=== PATIENT | female | born 1935 | race Caucasian/White ===

== ENCOUNTER 2019-05-28 19:09 | Inpatient (IN) | payer OTHER, BC ==
--- NOTE | 2019-05-28 19:18 | PDOC ---
History of Present Illness - General Chief Complaint: Shortness of Breath Stated Complaint: RESPIRATORY DISTRESS Time Seen by Provider: 05/28/19 19:17 History Source: Patient, Family - History of Present Illness Initial Comments: 05/28/19 20:16 Ms. Terrazas is an 84 y/o woman with hx diastolic CHF, recent bronchitis, mild alzheimers, CKD3, HTN, extensive vascular history including L carotid endarterectomy, drug eluting cardiac stent s/p [place] several years ago p/w 1-2 days of worsening shortness of breath. She reports that she noted the difficulty breathing two days ago and that today it worsened to the point that she asked her daughter to call an ambulance. She denies any chest pain, fevers, night sweats, diaphoresis, nausea, vomiting, palpitations. She has no history of prior DVT or PE and has no known sick contacts. 1.5 weeks ago she was treated for a CHF flare that was followed by bronchitis treated with a z-pack. She is accompanied by her daughter who is very involved in her mother's medical care. Her daughter reports that she does not normally take Lasix, but has been taking 4mg Lasix daily since the recent CHF flare. Her daughter administered 80 mg of Furosemide 1.5 hours prior to arriving at the hospital. Her daughter was in touch with the patient's para operator Dr. Figueredo, who expressed that if the security chief museum found pulmonary fluid on exam that she "should be admitted to the hospital ". Ms. Terrazas lives at [address] [place] [address] in independent housing and manages her own medications. Her daughter reports concern that she is not taking her medications regularly, and reports that she self-discontinued her donepizil recently because she felt that she did not need it. She reports that her weight is normally 112-114lbs but noticed that her weight has recently increased to approx 118lbs, and reports that her ankles seem swollen. She has no known drug allergies. She has never been on dialysis. She reports extensive smoking history but reports quitting 10+ years ago. Timing/Duration: other (1-2 days) Severity: severe Associated Symptoms: reports: shortness of breath. denies: chest pain, cough, fever/chills, nausea/vomiting, syncope, weakness Past History - Past Medical History Allergies/Adverse Reactions: Allergies Allergy/AdvReac Type Severity Reaction Status Date / Time erythromycin base Allergy Unknown Verified 05/28/19 20:18 Penicillins Allergy Unknown Verified 05/28/19 20:18 Anemia: No Cancer: No Cardiac Disorders: Yes Hx Myocardial Infarction: Yes CVA: No CHF: Yes (Diastolic CHF) DVT: No Dementia: Yes Dialysis: No HTN: Yes - Surgical History Cardiac Surgery: Yes (Drug eluting stent placement s/p [place]) Other Surgical History: 05/28/19 20:29 Vascular - L Carotid endarterectomy, Bilateral femoral stenting Review of Systems - Review of Systems Able to Perform ROS?: Yes Constitutional: Yes: See HPI. No: Chills, Diaphoresis, Fever, Night Sweats, Weakness, Weight Stable (112lb baseline ->118lb last week), Unintentional Wgt. Loss HEENTM: Yes: See HPI. No: Eye Pain, Blurred Vision, Recent change in vision Respiratory: Yes: See HPI Cardiac (ROS): Yes: See HPI ABD/GI: Yes: See HPI Musculoskeletal: Yes: See HPI Integumentary: Yes: See HPI Neurological: Yes: See HPI *Physical Exam - Physical Exam General Appearance: Yes: Nourished, Appropriately Dressed, Apparent Distress, Moderate Distress HEENT: positive: EOMI, FRANCOISE, Hearing Decreased. negative: Pale Conjunctivae Neck: positive: Trachea midline. negative: Carotid bruit Respiratory/Chest: positive: Respiratory Distress (Improved on BiPAP), Accessory Muscle Use (Resolved on BiPAP), Rapid RR, Wheezing (Mild). negative: Chest Tender, Crackles, Stridor Cardiovascular: positive: Regular Rhythm, Regular Rate, S1, S2. negative: JVD, Murmur, Systolic Murmur Gastrointestinal/Abdominal: positive: Normal Bowel Sounds, Flat, Soft. negative : Tender Extremity: positive: Pedal Edema (1+ bilateral) Integumentary: positive: Dry, Warm, Pale (Mild). negative: Cyanotic, Jaundice, Diaphoresis, Hives, Petechiae, Ecchymosis ED Treatment Course - LABORATORY CBC & Chemistry Diagram: 05/28/19 19:52 05/28/19 19:52 Medical Decision Making - Critical Care Time Total Critical Care Time (minutes): 35 Critical Care Statement: The care of this patient involved high complexity decision making to prevent further life threatening deterioration of the patient 's condition and/or to evaluate & treat vital organ system(s) failure or risk of failure. - Medical Decision Making 05/28/19 20:25 84 y/o F with extensive cardiovascular hx including diastolic CHF, HTN, previous vascular surgery and prior OK p/w 2 days of worsening SOB shortly after treatment for CHF flare, most consistent with acute CHF. COPD flare also possible given degree of shortness of breath and relatively benign pulmonary exam. Given accessory muscle use and difficulty breathing patient was initiated on BiPAP upon arrival to the ED (IPAP 10, EPAP5, O2 40, Resps 14). Plan: Continue BiPAP Chest Xray to evaluate for fluid, possible consolidations which may indicate pneumonia EKG Troponin CBC CMP Mag BNP Consult cardiology Dispo: Pending labs, imaging but likely admission to hospital 05/28/19 21:10 Labs resulted: Troponin - negative Creatinine - 2.8 (most recent 2.0, prior 2.73 in 2017) BNP - >12,000 Fluid bolus 250 mL ordered CXR, EKG Pending Pending admission 05/28/19 21:[address] Lujan, partner of Dr. Figueredo (cardiology). Plan for admission to non-telemetry medicine bed, Dr. Sutton per admitting. 40 mg Lasix ordered *DC/Admit/Observation/Transfer Diagnosis at time of Disposition: CHF exacerbation Qualifiers: Heart failure type: diastolic Qualified Code(s): I50.33 - Acute on chronic diastolic (congestive) heart failure - Discharge Dispostion Condition at time of disposition: Stable Decision to Admit order: Yes - Referrals - Patient Instructions - Post Discharge Activity
[2019-05-28] MEDS ORDERED: ALBUTEROL SO4 2.5/IPRATROPIUM 0.5 INH SOL 3 ML VIAL.NEB. NEB ONE (19:52)
[2019-05-28] MEDS ORDERED: methylPREDNISolone NA SUCC 125 MG/2 ML VIAL IVPUSH ONE (19:52)
[2019-05-28 20:17] LABS: BASO % 0.2 % (0-2.0); EOS % 0.1 % (0-4.5); HEMOGLOBIN 9.6 GM/dL (10.7-15.3); LYMPH % 5.2 % (8-40); MCH 29.8 pg (25.7-33.7); MCHC 32.9 g/dl (32.0-36.0); MEAN CELL VOLUME 90.5 fl (80-96); MEAN PLT VOLUME 10.7 fl (7.5-11.1); MONO % 5.4 % (3.8-10.2); NEUT % 89.1 % (42.8-82.8); PLATELET COUNT 193 K/MM3 (134-434); RBC 3.21 M/mm3 (3.60-5.2); RDW 13.6 % (11.6-15.6); WHITE BLOOD COUNT 12.9 K/mm3 (4.0-10.0)
[2019-05-28 20:45] LABS: ALBUMIN 3.5 g/dl (3.4-5.0); BILIRUBIN,TOTAL 0.5 mg/dL (0.2-1); BLOOD UREA NITROGEN 62.4 mg/dL (7-18); CALCIUM 8.6 mg/dL (8.5-10.1); CREATININE 2.8 mg/dL (0.55-1.3); MAGNESIUM 2.4 mg/dL (1.8-2.4); N-TERMINAL BNP 12696.3 pg/ml (5-450); POTASSIUM 4.8 mmol/L (3.5-5.1); TOT PROT 7.1 g/dl (6.4-8.2)
--- NOTE | 2019-05-28 20:58 | PDOC ---
Documentation entered by Sheree Morrison SCRIBE, acting as scribe for Tete Schaefer MD. Tete Schaefer MD: This documentation has been prepared by the sylvesteribe, Sheree Morrison SCRIBE, under my direction and personally reviewed by me in its entirety. I confirm that the documentation accurately reflects all work, treatment, procedures, and medical decision making performed by me. Attending Attestation - Resident Resident Name: HectorFranco - ED Attending Attestation I have performed the following: I have examined & evaluated the patient, The case was reviewed & discussed with the resident, I agree w/resident's findings & plan, Exceptions are as noted - HPI HPI: 05/28/19 19:42 The patient is an 84-year-old female from [facility] , with a past medical history diastolic heart failure, stage 3 renal failure ( not on hemodialysis), MD (stent x1), who presents to the ED with 1-2 days of worsening shortness of breath after a flare up of pulmonary edema 1.5 weeks ago. The patient was recently diagnosed with bronchitis and was given a Z-Shorty and Mucinex. Daughter is at bedside and reports that they were alternating 40- 80 mg of Lasix during this time and then switched to 40 mg daily. Patient called her daughter today and reported that the shortness of breath was worsening. She spoke to Dr. Concepcion who advised the patient to come to the ED for further evaluation. Patient states that she has been compliant with all her medications, but her daughter is not sure if that is true. The patient denies any fevers, chills, nausea, vomiting, diarrhea, or abdominal pain. Denies any chest pain or palpitations. Denies any urinary symptoms. Denies any weakness, dizziness, lightheadedness, or strength or sensory changes. General Manager In Training: Dr. Concepcion PCP: Dr. Thurman - Physicial Exam PE: 05/28/19 19:56 GENERAL: Awake, alert, and fully oriented, in no acute distress HEAD: No signs of trauma EYES: PERRLA, EOMI, sclera anicteric, conjunctiva clear ENT: Auricles normal inspection, hearing grossly normal, nares patent, oropharynx clear without exudates. Moist mucosa NECK: Normal ROM, supple, no lymphadenopathy, JVD, or masses LUNGS: Breath sounds equal, clear to auscultation bilaterally. No wheezes, and no crackles HEART: Regular rate and rhythm, normal S1 and S2, no murmurs, rubs or gallops ABDOMEN: Soft, nontender, normoactive bowel sounds. No guarding, no rebound. No masses EXTREMITIES: Normal range of motion, no edema. No clubbing or cyanosis. No cords, erythema, or tenderness NEUROLOGICAL: Cranial nerves II through XII grossly intact. Normal speech. SKIN: Warm, Dry, normal turgor, no rashes or lesions noted - Medical Decision Making 05/28/19 21:28 Dr. Larson was paged and notified via phone service. 05/29/19 20:26 Pt will be admitted to med surg for her SOB and her CHF exacerbation.
[2019-05-28] MEDS ORDERED: SODIUM CHLORIDE 0.9% 500 ML INFUS.BAG IV ONE (21:00)
[2019-05-28] MEDS ORDERED: FUROSEMIDE 40 MG/4 ML INJECTABLE VIAL IVPUSH ONE (21:32)
[2019-05-28] MEDS ORDERED: FUROSEMIDE 40 MG/4 ML INJECTABLE VIAL ONE (21:54)
--- NOTE | 2019-05-28 23:55 | PN ---
Teaching Attending Note Name of Resident: Petrona Spencer ATTENDING PHYSICIAN STATEMENT I saw and evaluated the patient. I reviewed the resident's note and discussed the case with the resident. I agree with the resident's findings and plan as documented. [facility] presents for [facility] with admission requested for stated SOB likely 2 /2 CHF exacerbation. Her EF is unknown. She was placed on Bipap in the ER, no ABG obtained prior and ABG now actually shows respiratory alkalosis with acute metabolic compensation. No documented hypoxia in vital signs or chart and I never saw her desat when off bipap. Noted to have hypertensive urgency to 180s SBP. I am told ER spoke with [facility] who requested the patient on med surg. Questionable medication noncompliance and recent treatment for bronchitis. Daughter has now left and cannot confirm recent O2 requirements (if she had any available O2 at [facility]). VS reviewed; per chart NAD, AAO, resting in bed On bipap; NC AT EOMI PERRLA RRR s1/2 Lungs with scattered crackles, w/ sym exp NT ND +BS CN2-12 wnl, no fnd Very anxious, grabbing at bed and hyperventillating, begging me and RT staff not to leave the room. EKG obtained on floor; reviewed CXR reviewed; fluid overload noted potentially obscuring any infiltrates with final read pending ASSESSMENT AND PLAN: Patient presents with acute respiratory failure requiring BiPap secondary to CHF exacerbation; noted to have elevated Cr with baseline CKD but unknown b/l Cr. She has questionable noncompliance with home therapy and is a patient of Dr. Concepcion. # Acute Respiratory failure 2/2 CHF exacerbation (EF and etiology unknown) with potential COPD contribution # Hypertensive Urgency # CKD-III with unknown baseline Cr, r/o MARCELL # CAD s/p PCI # Acute cystitis # Leukocytosis # Normocytic Anemia # Anxiety/Sundowning with hsitory of Alzheimer's dementia # Relatively prolonged QTc (490) -Admit to medicine; ER called [facility] followup their recs. Followup ABG and wean from BiPap to NC as tolerated. I don't have an initial ABG, and given that the one obtained on Bipap shows an acute respiratory alkalosis with appropriate acute compensation it appeared she was being hyperventillated. When bipap was removed sats >94% consistently while talking and extreme anxiety that could easily have mimicked respiratory failure. Therefore repeating ABG off bipap to see if she is actually hypercarbic (has been on 2L NC for ~2 hours without any desaturation but noted extreme anxiety). If ABG is normal will treat anxiety/ sundowning with agents that would not prolong QTc. She is noted to have a +UA and admits to being confused; I think that the possible UTI likely contributed to her worsening anxiety. On ceftriaxone, followup cxs. -BNP elevated with aformentioned CXR; could have element of renal retention but daughter states history D-CHF. Strict Is and Os, QD weights, optimize Mg and K. RF is likely 2/2 CHF exacerbation; will discuss old records with [facility] and obtain echo (Can cancel if recent study as OP). Apparently used to alternate lasix dose 40 and 80 and is now 40; was given 40 in ER with inaccurate Is and Os and still documented as tachypnic. Given baseline renal failure will likely need higher dose so giving additional 20 and placing on 60 IV daily and will monitor renal function and output, involving nephro if needed. Etiology of the CHF exacerbation would be likely 2/2 suspected noncomplaince vs. recent infection pushing her into it. -Potential contribution from COPD (some wheezes hear but mostly upper airway). She is a former smoker with no known PFTs. Will cover with PO prednisone and ATC nebs. Trigger would be the recent infection. Not necessarily + by GOLD criteria; she denies cough or sputum and I don't actually have any documented hypoxia. -For HTN urgency, we will recheck manual and confirm home medication administration. If still >160 can do PRN hydralazine. I definitely think anxiety plays a role in her BP fluctuation. Consider starting SSRI for intermediate nonurgently. -Check iron studies, retic, b12/folate -Recent infection can contribute to leukocytosis; no amrik infiltrates on CXR and no fevers making this less likely a infectious process. It may also be reactive. Can trend and check a blood culture, but will hold off on abx and monitor clinically for now.
[2019-05-29] MEDS ORDERED: FUROSEMIDE 40 MG/4 ML INJECTABLE VIAL IVPUSH ONE (00:05)
[2019-05-29] MEDS ORDERED: FUROSEMIDE 40 MG/4 ML INJECTABLE VIAL ONE (00:37)
[2019-05-29 00:55] LABS: ARTERIAL BLD GAS O2 SATURATION 99.4 % (95-98); ARTERIAL BLOOD GAS BASE EXCESS -2.7 meq/l (-2-2); ARTERIAL BLOOD GAS PCO2 34.1 mmHg (35-45); ARTERIAL BLOOD GAS PO2 150 mmHg (80-105); ARTERIAL BLOOD GAS pH 7.41 (7.35-7.45)
[2019-05-29 01:14] LABS: URINE APPEARANCE CLOUDY; URINE BILIRUBIN NEGATIVE (NEGATIVE); URINE COLOR YELLOW; URINE GLUCOSE (UA) NEGATIVE (NEGATIVE); URINE KETONE NEGATIVE (NEGATIVE); URINE LEUK ESTERASE 3+ (NEGATIVE); URINE NITRITE NEGATIVE (NEGATIVE); URINE PROTEIN 2+ (NEGATIVE); URINE UROBILINOGEN 0.2 mg/dL (0.2-1.0); URINE WBC 91 /hpf (0-5)
[2019-05-29 01:15] LABS: EPI CELLS 5.4 /HPF (0-5/HPF); HYALINE CASTS 6 /lpf (0-8); URINE BACTERIA 416.7 /hpf (NEGATIVE)
[2019-05-29] MEDS ORDERED: CEFTRIAXONE 2 GM in DEXTROSE 5%-WATER 100 ML IVPB ONE (02:30)
[2019-05-29] MEDS ORDERED: predniSONE 20 MG TABLET (UD) PO ONE (02:31)
[2019-05-29] MEDS ORDERED: ALBUTEROL SO4 2.5/IPRATROPIUM 0.5 INH SOL 3 ML VIAL.NEB. NEB PRN (02:33)
--- NOTE | 2019-05-29 02:33 | HP ---
CHIEF COMPLAINT: Difficulty breathing PCP: Dr. Thurman Bird Keeper: Dr. Concepcion HISTORY OF PRESENT ILLNESS: Symone Terrazas is an 84 year old female from [facility], with a PMH of diastolic heart failure, COPD (home O2 status unknown), stage 3 renal failure (not on hemodialysis), LA (drug eluting stent several years ago), L carotid endarterectomy, alzheimers who presents to the ED with 2 days of worsening SOB. Pt was recently treated for a CHF flare and bronchitis 1.5 weeks ago, treated Z-Shorty and Mucinex. Pt did not previously take Lasix, but has been started on 40mg daily since the CHF flare. Pt spoke to her lens edger , Dr. Concepcion, who advised the patient to come to the ED for further evaluation. Pt's daughter administered 80mg of Lasix 1.5 hours prior to arriving at the ED. Pt reports that she has been compliant with her medications, but her daughter is skeptical of the reliability of this. At this time, pt denies chest pain, diaphoresis, fevers, palpitations. Pt typically weighs around 114 lbs, but states that it has recently increased to approx 118 lbs. Upon arrival to the ED , pt was started on BiPAP (IPAP 10, EPAP5, O2 40, Resps 14). PAST MEDICAL HISTORY: Diastolic HF (NIHA Class IV) Stage 3 RF, not on dialysis LA w/stent Alzheimers PAST SURGICAL HISTORY: L carotid endarterectomy BL femoral stenting Social History: Smoking: quit 10+ years ago (previous 1-2 ppd) Alcohol: denies Drugs: denies Family History: Allergies erythromycin base Allergy (Unknown, Verified 05/28/19 20:18) Penicillins Allergy (Unknown, Verified 05/28/19 20:18) HOME MEDICATIONS: REVIEW OF SYSTEMS CONSTITUTIONAL: generalized weakness, malaise Absent: fever, chills, diaphoresis, loss of appetite, weight change HEENT: Absent: rhinorrhea, nasal congestion, throat pain, throat swelling, difficulty swallowing, mouth swelling, ear pain, eye pain, visual changes CARDIOVASCULAR: Absent: chest pain, syncope, palpitations, irregular heart rate, lightheadedness, peripheral edema RESPIRATORY: shortness of breath, orthopnea Absent: cough, dyspnea with exertion, wheezing, stridor, hemoptysis GASTROINTESTINAL: Absent: abdominal pain, abdominal distension, nausea, vomiting, diarrhea, constipation, melena, hematochezia GENITOURINARY: Absent: dysuria, frequency, urgency, hesitancy, hematuria, flank pain, genital pain MUSCULOSKELETAL: Absent: myalgia, arthralgia, joint swelling, back pain, neck pain SKIN: Absent: rash, itching, pallor HEMATOLOGIC/IMMUNOLOGIC: Absent: easy bleeding, easy bruising, lymphadenopathy, frequent infections ENDOCRINE: Absent: unexplained weight gain, unexplained weight loss, heat intolerance, cold intolerance NEUROLOGIC: Absent: headache, focal weakness or paresthesias, dizziness, unsteady gait, seizure, mental status changes, bladder or bowel incontinence PSYCHIATRIC: anxiety Absent: depression, suicidal or homicidal ideation, hallucinations. PHYSICAL EXAMINATION Vital Signs - 24 hr 05/28/19 05/28/19 05/28/19 19:15 19:29 19:40 Temperature 97.4 F L Pulse Rate 68 Pulse Rate [ Apical] Respiratory 30 H Rate Blood Pressure 180/105 H Blood Pressure [Left Arm] O2 Sat by Pulse 100 100 100 Oximetry (%) 05/28/19 05/28/19 05/29/19 21:59 23:59 00:53 Temperature Pulse Rate 64 Pulse Rate [ 70 Apical] Respiratory 26 H Rate Blood Pressure Blood Pressure 172/67 H [Left Arm] O2 Sat by Pulse 100 98 99 Oximetry (%) 05/29/19 02:12 Temperature Pulse Rate Pulse Rate [ Apical] Respiratory Rate Blood Pressure Blood Pressure [Left Arm] O2 Sat by Pulse 100 Oximetry (%) GENERAL: Awake, alert, and fully oriented. Appears slightly uncomfortable. Breathing on NC. HEAD: Normal with no signs of trauma. EYES: Pupils equal, round and reactive to light, extraocular movements intact, sclera anicteric, conjunctiva clear. No lid lag. EARS, NOSE, THROAT: Ears normal, nares patent, oropharynx clear without exudates. Moist mucous membranes. NECK: Normal range of motion, supple without lymphadenopathy, JVD, or masses. LUNGS: Diffuse crackles (christina at bases). Mild wheezing throughout. Accessory muscle use. HEART: Regular rate and rhythm, normal S1 and S2 without murmur, rub or gallop. ABDOMEN: Soft, nontender, not distended, normoactive bowel sounds, no guarding, no rebound, no masses. No hepatomegaly or splenomegaly. MUSCULOSKELETAL: Normal range of motion at all joints. No bony deformities or tenderness. No CVA tenderness. UPPER EXTREMITIES: 2+ pulses, warm, well-perfused. No cyanosis. No clubbing. LOWER EXTREMITIES: 2+ pulses, warm, well-perfused. No calf tenderness. 1+ edema. NEUROLOGICAL: Cranial nerves II-XII intact. Normal speech. Normal gait. PSYCHIATRIC: Cooperative. Good eye contact. Appropriate mood and affect. SKIN: Warm, dry, normal turgor, no rashes or lesions noted, normal capillary refill. Laboratory Results - last 24 hr 05/28/19 05/28/19 05/28/19 19:52 19:52 19:52 WBC 12.9 H RBC 3.21 L Hgb 9.6 L Hct 29.0 L MCV 90.5 MCH 29.8 MCHC 32.9 RDW 13.6 Plt Count 193 MPV 10.7 Absolute Neuts (auto) 11.5 H Neutrophils % 89.1 H Lymphocytes % 5.2 L Monocytes % 5.4 Eosinophils % 0.1 Basophils % 0.2 Nucleated RBC % 0 Anticoagulation Therapy Puncture Site ABG pH ABG pCO2 at Pt Temp ABG pO2 at Pt Temp ABG HCO3 ABG O2 Sat (Measured) ABG O2 Content ABG Base Excess [place] Test O2 Delivery Device Oxygen Flow Rate Vent Mode Vent Rate Mechanical Rate Pressure Support Vent Sodium 141 Potassium 4.8 Chloride 107 Carbon Dioxide 24 Anion Gap 10 BUN 62.4 H Creatinine 2.8 H Est GFR (CKD-EPI)AfAm 17.01 Est GFR (CKD-EPI)NonAf 14.68 Random Glucose 105 Calcium 8.6 Magnesium 2.4 Total Bilirubin 0.5 AST 25 ALT 23 Alkaline Phosphatase 59 Creatine Kinase 94 Troponin I 0.03 B-Natriuretic Peptide 39027.3 H Total Protein 7.1 Albumin 3.5 Urine Color Urine Appearance Urine pH Ur Specific [place] Urine Protein Urine Glucose (UA) Urine Ketones Urine Blood Urine Nitrite Urine Bilirubin Urine Urobilinogen Ur Leukocyte Esterase Urine WBC (Auto) Urine Casts (Auto) U Epithel Cells (Auto) Urine Bacteria (Auto) 05/29/19 05/29/19 00:31 01:05 WBC RBC Hgb Hct MCV MCH MCHC RDW Plt Count MPV Absolute Neuts (auto) Neutrophils % Lymphocytes % Monocytes % Eosinophils % Basophils % Nucleated RBC % Anticoagulation Therapy No Result Required. Puncture Site Right radial ABG pH 7.41 ABG pCO2 at Pt Temp 34.1 L ABG pO2 at Pt Temp 150 H ABG HCO3 21.0 L ABG O2 Sat (Measured) 99.4 H ABG O2 Content 13.1 L ABG Base Excess -2.7 L [place] Test No Result Required. O2 Delivery Device Bipap Oxygen Flow Rate 40% Vent Mode S/t Vent Rate 14 Mechanical Rate No Result Required. Pressure Support Vent 10/5 Sodium Potassium Chloride Carbon Dioxide Anion Gap BUN Creatinine Est GFR (CKD-EPI)AfAm Est GFR (CKD-EPI)NonAf Random Glucose Calcium Magnesium Total Bilirubin AST ALT Alkaline Phosphatase Creatine Kinase Troponin I B-Natriuretic Peptide Total Protein Albumin Urine Color Yellow Urine Appearance Cloudy Urine pH 5.0 Ur Specific [place] 1.010 Urine Protein 2+ H Urine Glucose (UA) Negative Urine Ketones Negative Urine Blood Negative Urine Nitrite Negative Urine Bilirubin Negative Urine Urobilinogen 0.2 Ur Leukocyte Esterase 3+ H Urine WBC (Auto) 91 Urine Casts (Auto) 6 U Epithel Cells (Auto) 5.4 Urine Bacteria (Auto) 416.7 ASSESSMENT/PLAN: Pt is an 84 year old female from [facility], with a PMH of diastolic heart failure, stage 3 renal failure (not on hemodialysis), LA (drug eluting stent several years ago), L carotid endarterectomy, alzheimers who presents to the ED with 2 days of worsening SOB. #Apparent SOB, likely 2/2 anxiety Pt has no recorded decompensation Unknown home O2 status When transitioned to 2L NC, she maintained sats >94% consistently while talking and extreme anxiety. Anxiety may have mimicked resp failure Repeat ABG off BiPAP to assess if pt is really hypercarbic #CHF exacerbation 60mg IV lasix Monitor electrolytes, daily weights, and I's & O's, optimize Mg and K Possible noncompliance with medication may have triggered exacerbation #COPD Duonebs Q6H and albuterol nebs prn Prednisone PO Monitoring pt off BiPAP. Repeat ABG, if pt is hypoxic, upgrade to venti mask Not necessarily exacerbation by GOLD criteria. No cough, change in sputum, and no documented hypoxia #Hypertensive Urgency Cont home meds (doxazosin 4mg, nebivolol 10mg) and add hydralazine 35mg Frequent monitoring #CKD-III, rule out MARCELL Unknown baseline Cr Likely 2/2 to CHF exacerbation Repeat BMP in am. Pt will likely need increase lasix dose. Consider nephro consult #Leukocytosis Recent infection may have contributed No infiltrates on CXR, no fevers, thus less likely an infectious process. May be reactive Trend and check blood cx #FEN Hold fluids for now Sodium controlled diet #DVT ppx Early ambulation Visit type - Emergency Visit Emergency Visit: Yes ED Registration Date: 05/28/19 Care time: The patient presented to the Emergency Department on the above date and was hospitalized for further evaluation of their emergent condition. - New Patient This patient is new to me today: Yes Date on this admission: 05/29/19 - Critical Care Critical Care patient: No ATTENDING PHYSICIAN STATEMENT I saw and evaluated the patient. I reviewed the resident's note and discussed the case with the resident. I agree with the resident's findings and plan as documented. SUBJECTIVE: OBJECTIVE: ASSESSMENT AND PLAN:
[2019-05-29] MEDS ORDERED: DEXTROSE 5%-WATER 100 ML IVPB ONE (02:42)
[2019-05-29] MEDS ORDERED: ALBUTEROL SO4 0.083% IH SOL 2.5 MG/3 ML VIAL.NEB. NEB PRN (03:34)
[2019-05-29] MEDS: ALBUTEROL SO4 2.5/IPRATROPIUM 0.5 INH SOL 3 ML VIAL.NEB. NEB SCH ×5 (03:50→20:15)
[2019-05-29 04:22] LABS: ARTERIAL BLD GAS O2 SATURATION 98.9 % (95-98); ARTERIAL BLOOD GAS BASE EXCESS -5.2 meq/l (-2-2); ARTERIAL BLOOD GAS PCO2 39.9 mmHg (35-45); ARTERIAL BLOOD GAS PO2 136 mmHg (80-105); ARTERIAL BLOOD GAS pH 7.32 (7.35-7.45)
[2019-05-29] MEDS ORDERED: LORazepam 0.5 MG TABLET PO ONE (04:28)
[2019-05-29 04:39] LABS: URINE RBC 30-40 /hpf (0-4); YEAST NONE SEEN (NEGATIVE)
[2019-05-29] MEDS ORDERED: hydrALAZINE HCL 10 MG TABLET ONE ×3 (06:12→20:36)
[2019-05-29] MEDS: DOXAZOSIN MESYLATE 2 MG TABLET (FP) PO SCH (06:13)
[2019-05-29] MEDS ORDERED: hydrALAZINE HCL 25 MG TABLET (FP) ONE ×3 (06:14→20:36)
[2019-05-29] MEDS: hydrALAZINE HCL 25 MG, hydrALAZINE HCL 10 MG PO SCH ×2 (06:16→21:22)
[2019-05-29] MEDS ORDERED: hydrALAZINE HCL 25 MG TABLET (FP) PO SCH ×2 (07:00→22:00)
[2019-05-29 08:26] LABS: BASO % 0.1 % (0-2.0); HEMATOCRIT 29.4 % (32.4-45.2); HEMOGLOBIN 9.9 GM/dL (10.7-15.3); LYMPH % 2.1 % (8-40); MCH 30.2 pg (25.7-33.7); MCHC 33.8 g/dl (32.0-36.0); MEAN CELL VOLUME 89.3 fl (80-96); MEAN PLT VOLUME 10.8 fl (7.5-11.1); MONO % 0.6 % (3.8-10.2); NEUT % 97.2 % (42.8-82.8); RBC 3.29 M/mm3 (3.60-5.2); RDW 13.6 % (11.6-15.6)
--- NOTE | 2019-05-29 08:38 | EKG ---
Test Reason : Blood Pressure : / mmHG Vent. Rate : 066 BPM Atrial Rate : 066 BPM P-R Int : 162 ms QRS Dur : 080 ms QT Int : 442 ms P-R-T Axes : 058 -44 091 degrees QTc Int : 463 ms NORMAL SINUS RHYTHM POSSIBLE LEFT ATRIAL ENLARGEMENT LEFT AXIS DEVIATION T WAVE ABNORMALITY, CONSIDER LATERAL ISCHEMIA ABNORMAL ECG NO PREVIOUS ECGS AVAILABLE Confirmed by FELIX PATEL, PATTY ([id number]) on 05/29/2019 8:37:52 AM Referred By: Confirmed By:PATTY WASHINGTON MD
[2019-05-29 08:45] LABS: PLATELET COUNT 218 K/MM3 (134-434)
[2019-05-29 08:48] LABS: ALBUMIN 3.5 g/dl (3.4-5.0); BILIRUBIN,TOTAL 0.3 mg/dL (0.2-1); BLOOD UREA NITROGEN 68.2 mg/dL (7-18); CALCIUM 8.4 mg/dL (8.5-10.1); CREATININE 3.1 mg/dL (0.55-1.3); MAGNESIUM 2.3 mg/dL (1.8-2.4); POTASSIUM 3.7 mmol/L (3.5-5.1); TOT PROT 7.2 g/dl (6.4-8.2)
[2019-05-29] MEDS ORDERED: PT OWN MED DRAWER 7, Y5N ONE ×3 (09:46→20:36)
[2019-05-29] MEDS ORDERED: PATIENT'S OWN MEDICATION (NON-FORMULARY) (Calcium Carb, Citrate/Vit D3 [Calcium + D3 Er Ta PO SCH (10:00)
[2019-05-29] MEDS: amLODIPine BESYLATE 10 MG TABLET (FP) PO SCH (10:18)
[2019-05-29] MEDS: FUROSEMIDE 40 MG/4 ML INJECTABLE VIAL IVPUSH SCH (10:18)
[2019-05-29] MEDS: ASPIRIN COATED 81 MG TABLET.EC PO SCH (10:18)
[2019-05-29] MEDS: NEBIVOLOL 10 MG TABLET (FP) PO SCH (10:24)
[2019-05-29 11:39] LABS: ANISOCYTOSIS 0; MACROCYTOSIS 0; OVALOCYTE 1+; PLATELET ESTIMATE NORMAL
--- NOTE | 2019-05-29 11:52 | EKG ---
Test Reason : Blood Pressure : / mmHG Vent. Rate : 081 BPM Atrial Rate : 081 BPM P-R Int : 156 ms QRS Dur : 084 ms QT Int : 426 ms P-R-T Axes : 079 -47 074 degrees QTc Int : 494 ms POOR DATA QUALITY, INTERPRETATION MAY BE ADVERSELY AFFECTED NORMAL SINUS RHYTHM POSSIBLE LEFT ATRIAL ENLARGEMENT LEFT ANTERIOR FASCICULAR BLOCK POSSIBLE ANTERIOR INFARCT , AGE UNDETERMINED T WAVE ABNORMALITY, CONSIDER LATERAL ISCHEMIA ABNORMAL ECG WHEN COMPARED WITH ECG OF 28-MAY-2019 21:16, NO SIGNIFICANT CHANGE WAS FOUND Confirmed by PATTY WASHINGTON MD ([id number]) on 05/29/2019 11:52:06 AM Referred By: Confirmed By:PATTY WASHINGTON MD
[2019-05-29] MEDS ORDERED: methylPREDNISolone NA SUCC 40 MG/1 ML VIAL IVPUSH SCH (12:00)
--- NOTE | 2019-05-29 12:00 | PN ---
Progress Note (short form) - Note Progress Note: Subjective: No fever or chills. SOB , and wheezing. received her meds shortly before I came and was feeling better already. son Dayron at bed side and he agrees that upper and lower ext edema is better compared to last night. reprots anxity component and requests anxiety medication. she was off lasix, but 2 weeks ago she was started on alternating 40 and 80 mg daily. she lost 3 pounds since. Cr BL 1.8-2.1 Objective: Vital Signs: Last Vital Signs Temp Pulse Resp BP Pulse Ox 98.0 F 82 22 H 133/92 100 05/29/19 07:26 05/29/19 07:26 05/29/19 07:26 05/29/19 07:26 05/29/19 02:30 Laboratory Results - last 24 hr 05/28/19 05/28/19 05/28/19 19:52 19:52 19:52 WBC 12.9 H RBC 3.21 L Hgb 9.6 L Hct 29.0 L MCV 90.5 MCH 29.8 MCHC 32.9 RDW 13.6 Plt Count 193 MPV 10.7 Absolute Neuts (auto) 11.5 H Neutrophils % 89.1 H Neutrophils % (Manual) Band Neutrophils % Lymphocytes % 5.2 L Lymphocytes % (Manual) Monocytes % 5.4 Monocytes % (Manual) Eosinophils % 0.1 Eosinophils % (Manual) Basophils % 0.2 Basophils % (Manual) Myelocytes % (Man) Promyelocytes % (Man) Blast Cells % (Manual) Nucleated RBC % 0 Metamyelocytes Hypochromia Platelet Estimate Polychromasia Poikilocytosis Anisocytosis Microcytosis Macrocytosis Ovalocytes Anticoagulation Therapy Puncture Site ABG pH ABG pCO2 at Pt Temp ABG pO2 at Pt Temp ABG HCO3 ABG O2 Sat (Measured) ABG O2 Content ABG Base Excess [place] Test O2 Delivery Device Oxygen Flow Rate Vent Mode Vent Rate Mechanical Rate Pressure Support Vent Sodium 141 Potassium 4.8 Chloride 107 Carbon Dioxide 24 Anion Gap 10 BUN 62.4 H Creatinine 2.8 H Est GFR (CKD-EPI)AfAm 17.01 Est GFR (CKD-EPI)NonAf 14.68 Random Glucose 105 Calcium 8.6 Magnesium 2.4 Ferritin Total Bilirubin 0.5 AST 25 ALT 23 Alkaline Phosphatase 59 Creatine Kinase 94 Troponin I 0.03 B-Natriuretic Peptide 45060.3 H Total Protein 7.1 Albumin 3.5 Vitamin B12 TSH Urine Color Urine Appearance Urine pH Ur Specific [place] Urine Protein Urine Glucose (UA) Urine Ketones Urine Blood Urine Nitrite Urine Bilirubin Urine Urobilinogen Ur Leukocyte Esterase Urine WBC (Auto) Urine RBC (Auto) Urine Casts (Auto) U Epithel Cells (Auto) Urine Bacteria (Auto) Urine Yeast (Auto) 05/29/19 05/29/19 05/29/19 00:31 01:05 04:10 WBC RBC Hgb Hct MCV MCH MCHC RDW Plt Count MPV Absolute Neuts (auto) Neutrophils % Neutrophils % (Manual) Band Neutrophils % Lymphocytes % Lymphocytes % (Manual) Monocytes % Monocytes % (Manual) Eosinophils % Eosinophils % (Manual) Basophils % Basophils % (Manual) Myelocytes % (Man) Promyelocytes % (Man) Blast Cells % (Manual) Nucleated RBC % Metamyelocytes Hypochromia Platelet Estimate Polychromasia Poikilocytosis Anisocytosis Microcytosis Macrocytosis Ovalocytes Anticoagulation Therapy No Result Required. No Result Required. Puncture Site Right radial Right radial ABG pH 7.41 7.32 L ABG pCO2 at Pt Temp 34.1 L 39.9 ABG pO2 at Pt Temp 150 H 136 H ABG HCO3 21.0 L 19.9 L ABG O2 Sat (Measured) 99.4 H 98.9 H ABG O2 Content 13.1 L 10.0 L ABG Base Excess -2.7 L -5.2 L [place] Test No Result Required. No Result Required. O2 Delivery Device Bipap N/c Oxygen Flow Rate 40% 4l Vent Mode S/t No Result Required. Vent Rate 14 No Result Required. Mechanical Rate No Result Required. No Result Required. Pressure Support Vent 10/5 No Result Required. Sodium Potassium Chloride Carbon Dioxide Anion Gap BUN Creatinine Est GFR (CKD-EPI)AfAm Est GFR (CKD-EPI)NonAf Random Glucose Calcium Magnesium Ferritin Total Bilirubin AST ALT Alkaline Phosphatase Creatine Kinase Troponin I B-Natriuretic Peptide Total Protein Albumin Vitamin B12 TSH Urine Color Yellow Urine Appearance Cloudy Urine pH 5.0 Ur Specific [place] 1.010 Urine Protein 2+ H Urine Glucose (UA) Negative Urine Ketones Negative Urine Blood Negative Urine Nitrite Negative Urine Bilirubin Negative Urine Urobilinogen 0.2 Ur Leukocyte Esterase 3+ H Urine WBC (Auto) 91 Urine RBC (Auto) 30-40 Urine Casts (Auto) 6 U Epithel Cells (Auto) 5.4 Urine Bacteria (Auto) 416.7 Urine Yeast (Auto) None seen 05/29/19 05/29/19 05/29/19 06:00 07:21 07:21 WBC 10.0 RBC 3.29 L Hgb 9.9 L Hct 29.4 L MCV 89.3 MCH 30.2 MCHC 33.8 RDW 13.6 Plt Count 218 MPV 10.8 Absolute Neuts (auto) 9.7 H Neutrophils % 97.2 H Neutrophils % (Manual) 99.0 H Band Neutrophils % 0.0 Lymphocytes % 2.1 L D Lymphocytes % (Manual) 1.0 L Monocytes % 0.6 L D Monocytes % (Manual) 0 L Eosinophils % 0.0 D Eosinophils % (Manual) 0.0 Basophils % 0.1 Basophils % (Manual) 0.0 Myelocytes % (Man) 0 Promyelocytes % (Man) 0 Blast Cells % (Manual) 0 Nucleated RBC % 0 Metamyelocytes 0 Hypochromia 0 Platelet Estimate Normal Polychromasia 0 Poikilocytosis 1+ Anisocytosis 0 Microcytosis 0 Macrocytosis 0 Ovalocytes 1+ Anticoagulation Therapy Puncture Site ABG pH ABG pCO2 at Pt Temp ABG pO2 at Pt Temp ABG HCO3 ABG O2 Sat (Measured) ABG O2 Content ABG Base Excess [place] Test O2 Delivery Device Oxygen Flow Rate Vent Mode Vent Rate Mechanical Rate Pressure Support Vent Sodium 140 Potassium 3.7 Chloride 107 Carbon Dioxide 21 Anion Gap 12 BUN 68.2 H Creatinine 3.1 H Est GFR (CKD-EPI)AfAm 15.04 Est GFR (CKD-EPI)NonAf 12.98 Random Glucose 240 H Calcium 8.4 L Magnesium 2.3 Ferritin 119.4 Total Bilirubin 0.3 AST 21 ALT 21 Alkaline Phosphatase 60 Creatine Kinase Troponin I B-Natriuretic Peptide Total Protein 7.2 Albumin 3.5 Vitamin B12 583 TSH 0.39 Urine Color Urine Appearance Urine pH Ur Specific [place] Urine Protein Urine Glucose (UA) Urine Ketones Urine Blood Urine Nitrite Urine Bilirubin Urine Urobilinogen Ur Leukocyte Esterase Urine WBC (Auto) Urine RBC (Auto) Urine Casts (Auto) U Epithel Cells (Auto) Urine Bacteria (Auto) Urine Yeast (Auto) Physical Exam: mild distress, tachypnea. CV: RRR, tachycardic. + JVD Lungs: generalized wheezing. decreased breath sounds at bases Abd: soft, NT, ND , NL BS Ext : no edema on upper or lower extremities. Imaging: cxray and EKG reviewed Assessment/Plan: 84 y/o lady with h/ o CHF, COPD, HTN , CAD, Alzheimer, s/p PCI, who presented with worsening SOB. She was found in acute resp failure. 1- ACute resp failure due to COPD exacerbation with CHF exacerbation. cxray not read but reviewed and shows possible pleural effusions, no infiltrates. fluid congestion improved with lasix and breathing treatment. ABG on and off BIPAP reviewed. - place on BIPAP now and then PRN and HS . decrease rate to 12. - change prednisone to solu-Medrol 40 TID - NEbs - Add symbicort - cont lasix at current does pending card consult - echo . hopefully can find out pt echo - pulmonary consult 2- MARCELL: likely prerenal azotemia due to CHF - renal US. - monitor with diuresis - renal consult 3- HTN urgency: resume all her BP meds. Monitor BP. anxiety and SOB are playing a big role per daughter base line BP 150-160. 4- DVT px: place on SQ heparin Code status : she has a living will which states " DNR/DNI" spoke to laverne Garcia over the phone who expressed she wanted her mom to be full code. Dayron at bedside agrees. Spoke to Bill, HCP, over phone ), and he agrees to full code. Transfer to tele floor Visit type - Emergency Visit Emergency Visit: Yes ED Registration Date: 05/28/19 Care time: The patient presented to the Emergency Department on the above date and was hospitalized for further evaluation of their emergent condition. - New Patient This patient is new to me today: Yes Date on this admission: 05/29/19 - Critical Care Critical Care patient: No
--- NOTE | 2019-05-29 12:59 | CON.CARD ---
Cardiology Consult (text) - Consultation Consultation Note: cc: sob hpi: 84 f hx dementia, ckd, cea, diastolic chf, htn, hld, mi s/p remote pci, here with sob. Pt poor historian 2/2 dementia. Hx from charts, family. Past 1 -2 days with sob so took increased dose of lasix but not improving so ems called yesterday and brought to ER for chf. Pt denies any sxs, confused. Sees dr lima for cardio. pmh: per hpi psh: cea social: no tob fam: non contrib ros: unable to obtain 2/2 dementia meds: Home Medications Medication Instructions Recorded Amlodipine Besylate 10 mg PO DAILY 05/29/19 Aspirin [Ecotrin] 81 mg PO DAILY 05/29/19 Atorvastatin Ca [Lipitor] 40 mg PO HS 05/29/19 Calcium Carb, Citrate/Vit D3 1 tab PO DAILY 05/29/19 [Calcium + D3 ER Tablet] Doxazosin Mesylate 2 mg PO AM 05/29/19 Doxazosin Mesylate 4 mg PO HS 05/29/19 Hydralazine HCl 35 mg PO AM 05/29/19 Hydralazine HCl 35 mg PO HS 05/29/19 Nebivolol HCl [Bystolic] 10 mg PO DAILY 05/29/19 pe: Vital Signs Period Temp Pulse Resp BP Sys/Michelle Pulse Ox Last 24 Hr 97.4 F-98.0 F 64-92 22-30 129-180/60-105 98-100 nad no jvd rrr s1s2 no mrg bibasilar crackles, nl eff abd nt nd pos bs no jaundice diaphoresis pos dp tp no carotid bruits awake, alert, confused no le e/c/c Laboratory Last Values WBC 10.0 K/mm3 (4.0-10.0) 05/29/19 07:21 RBC 3.29 M/mm3 (3.60-5.2) L 05/29/19 07:21 Hgb 9.9 GM/dL (10.7-15.3) L 05/29/19 07:21 Hct 29.4 % (32.4-45.2) L 05/29/19 07:21 MCV 89.3 fl (80-96) 05/29/19 07:21 MCH 30.2 pg (25.7-33.7) 05/29/19 07:21 MCHC 33.8 g/dl (32.0-36.0) 05/29/19 07:21 RDW 13.6 % (11.6-15.6) 05/29/19 07:21 Plt Count 218 K/MM3 (134-434) 05/29/19 07:21 MPV 10.8 fl (7.5-11.1) 05/29/19 07:21 Absolute Neuts (auto) 9.7 K/mm3 (1.5-8.0) H 05/29/19 07:21 Neutrophils % 97.2 % (42.8-82.8) H 05/29/19 07:21 Neutrophils % (Manual) 99.0 % (42.8-82.8) H 05/29/19 07:21 Band Neutrophils % 0.0 % 05/29/19 07:21 Lymphocytes % 2.1 % (8-40) L D 05/29/19 07:21 Lymphocytes % (Manual) 1.0 % (8-40) L 05/29/19 07:21 Monocytes % 0.6 % (3.8-10.2) L D 05/29/19 07:21 Monocytes % (Manual) 0 % (3.8-10.2) L 05/29/19 07:21 Eosinophils % 0.0 % (0-4.5) D 05/29/19 07:21 Eosinophils % (Manual) 0.0 % (0-4.5) 05/29/19 07:21 Basophils % 0.1 % (0-2.0) 05/29/19 07:21 Basophils % (Manual) 0.0 % (0-2.0) 05/29/19 07:21 Myelocytes % (Man) 0 % (0-2) 05/29/19 07:21 Promyelocytes % (Man) 0 % (0-2) 05/29/19 07:21 Blast Cells % (Manual) 0 % (0-0) 05/29/19 07:21 Nucleated RBC % 0 % (0-0) 05/29/19 07:21 Metamyelocytes 0 % (0-2) 05/29/19 07:21 Hypochromia 0 05/29/19 07:21 Platelet Estimate Normal 05/29/19 07:21 Polychromasia 0 05/29/19 07:21 Poikilocytosis 1+ 05/29/19 07:21 Anisocytosis 0 05/29/19 07:21 Microcytosis 0 05/29/19 07:21 Macrocytosis 0 05/29/19 07:21 Ovalocytes 1+ 05/29/19 07:21 Anticoagulation Therapy No Result Required. 05/29/19 04:10 Puncture Site Right radial 05/29/19 04:10 ABG pH 7.32 (7.35-7.45) L 05/29/19 04:10 ABG pCO2 at Pt Temp 39.9 mmHg (35-45) 05/29/19 04:10 ABG pO2 at Pt Temp 136 mmHg (80-105) H 05/29/19 04:10 ABG HCO3 19.9 mmol/L (22-27) L 05/29/19 04:10 ABG O2 Sat (Measured) 98.9 % (95-98) H 05/29/19 04:10 ABG O2 Content 10.0 % vol (15-22) L 05/29/19 04:10 ABG Base Excess -5.2 meq/l (-2-2) L 05/29/19 04:10 [place] Test No Result Required. 05/29/19 04:10 O2 Delivery Device N/c 05/29/19 04:10 Oxygen Flow Rate 4l 05/29/19 04:10 Vent Mode No Result Required. 05/29/19 04:10 Vent Rate No Result Required. 05/29/19 04:10 Mechanical Rate No Result Required. 05/29/19 04:10 Pressure Support Vent No Result Required. 05/29/19 04:10 Sodium 140 mmol/L (136-145) 05/29/19 07:21 Potassium 3.7 mmol/L (3.5-5.1) 05/29/19 07:21 Chloride 107 mmol/L (98-107) 05/29/19 07:21 Carbon Dioxide 21 mmol/L (21-32) 05/29/19 07:21 Anion Gap 12 MMOL/L (8-16) 05/29/19 07:21 BUN 68.2 mg/dL (7-18) H 05/29/19 07:21 Creatinine 3.1 mg/dL (0.55-1.3) H 05/29/19 07:21 Est GFR (CKD-EPI)AfAm 15.04 05/29/19 07:21 Est GFR (CKD-EPI)NonAf 12.98 05/29/19 07:21 Random Glucose 240 mg/dL (74-106) H 05/29/19 07:21 Calcium 8.4 mg/dL (8.5-10.1) L 05/29/19 07:21 Magnesium 2.3 mg/dL (1.8-2.4) 05/29/19 07:21 Ferritin 119.4 ng/ml (8-388) 05/29/19 06:00 Total Bilirubin 0.3 mg/dL (0.2-1) 05/29/19 07:21 AST 21 U/L (15-37) 05/29/19 07:21 ALT 21 U/L (13-61) 05/29/19 07:21 Alkaline Phosphatase 60 U/L (45-117) 05/29/19 07:21 Creatine Kinase 94 U/L (26-192) 05/28/19 19:52 Troponin I 0.03 ng/ml (0.00-0.05) 05/28/19 19:52 B-Natriuretic Peptide 91767.3 pg/ml (5-450) H 05/28/19 19:52 Total Protein 7.2 g/dl (6.4-8.2) 05/29/19 07:21 Albumin 3.5 g/dl (3.4-5.0) 05/29/19 07:21 Vitamin B12 583 pg/ml (193-986) 05/29/19 06:00 TSH 0.39 uIU/ml (0.358-3.74) 05/29/19 07:21 Urine Color Yellow 05/29/19 01:05 Urine Appearance Cloudy 05/29/19 01:05 Urine pH 5.0 (5.0-8.0) 05/29/19 01:05 Ur Specific [place] 1.010 (1.010-1.035) 05/29/19 01:05 Urine Protein 2+ (NEGATIVE) H 05/29/19 01:05 Urine Glucose (UA) Negative (NEGATIVE) 05/29/19 01:05 Urine Ketones Negative (NEGATIVE) 05/29/19 01:05 Urine Blood Negative (NEGATIVE) 05/29/19 01:05 Urine Nitrite Negative (NEGATIVE) 05/29/19 01:05 Urine Bilirubin Negative (NEGATIVE) 05/29/19 01:05 Urine Urobilinogen 0.2 mg/dL (0.2-1.0) 05/29/19 01:05 Ur Leukocyte Esterase 3+ (NEGATIVE) H 05/29/19 01:05 Urine WBC (Auto) 91 /hpf (0-5) 05/29/19 01:05 Urine RBC (Auto) 30-40 /hpf (0-4) 05/29/19 01:05 Urine Casts (Auto) 6 /lpf (0-8) 05/29/19 01:05 U Epithel Cells (Auto) 5.4 /HPF (0-5/HPF) 05/29/19 01:05 Urine Bacteria (Auto) 416.7 /hpf (NEGATIVE) 05/29/19 01:05 Urine Yeast (Auto) None seen (NEGATIVE) 05/29/19 01:05 ecg: sr, nl intervals, no st changes, lat twis cxr: chf a/p: 84 f hx dementia, ckd, cea, diastolic chf, htn, hld, mi s/p remote pci, here with sob. sob, acute diastolic chf: -cont iv lasix 60 qd. daily wts and chem7. -check echo ckd: -cr near baseline htn: -cont home meds hld: -cont statin cad, s/p mi and remote pci: -no signs acs -cont statin, asa, bb, nitrate
--- NOTE | 2019-05-29 13:41 | CON.PULM ---
Consult Consult Specialty:: PULMONARY Referred by:: BARBARA Reason for Consultation:: SOB - History of Present Illness Chief Complaint: SOB/COUGH History of Present Illness: The patient is an 84-year-old female from [facility] , with a past medical history diastolic heart failure, stage 3 renal failure ( not on hemodialysis), NM (stent x1), who presents to the ED with 1-2 days of worsening shortness of breath after a flare up of pulmonary edema 1.5 weeks ago. The patient was recently diagnosed with bronchitis and was given a Z-Shorty and Mucinex. Patient called her daughter and reported that the shortness of breath was worsening. She spoke to Dr. Concepcion who advised the patient to come to the ED for further evaluation. Patient states that she has been compliant with all her medications, but her daughter is not sure if that is true. - History Source History Provided By: Family Member, Medical Record Limitations to Obtaining History: Clinical Condition - Past Medical History TISSUE INSERTER: Yes: Alzheimer's (STAGE ONE) Cardio/Vascular: Yes: CAD, CHF, NM, Other (STENTS ) Pulmonary: Yes: Bronchitis, COPD. No: O2 Dependent Gastrointestinal: No: Cancer Hepatobiliary: No: Cirrhosis Renal/: Yes: Renal Failure Reproductive: Yes: Postmenopausal ...: No Heme/Onc: Yes: Anemia Psych: No: Addictions Endocrine: No: Diabetes Mellitus - Alcohol/Substance Use Hx Alcohol Use: No - Smoking History Smoking history: Former smoker Have you smoked in the past 12 months: No Home Medications - Allergies Allergies/Adverse Reactions: Allergies Allergy/AdvReac Type Severity Reaction Status Date / Time erythromycin base Allergy Unknown Verified 05/28/19 20:18 Penicillins Allergy Unknown Verified 05/28/19 20:18 - Home Medications Home Medications: Ambulatory Orders Amlodipine Besylate 10 mg PO DAILY 05/29/19 Aspirin [Ecotrin] 81 mg PO DAILY 05/29/19 Atorvastatin Ca [Lipitor] 40 mg PO HS 05/29/19 Calcium Carb, Citrate/Vit D3 [Calcium + D3 ER Tablet] 1 tab PO DAILY 05/29/19 Doxazosin Mesylate 2 mg PO AM 05/29/19 Doxazosin Mesylate 4 mg PO HS 05/29/19 Hydralazine HCl 35 mg PO AM 05/29/19 Hydralazine HCl 35 mg PO HS 05/29/19 Nebivolol HCl [Bystolic] 10 mg PO DAILY 05/29/19 Family Disease History - Family Disease History Family History: Unremarkable Review of Systems Unable to obtain ROS, reason: STAGE ONE ALZHEIMER Findings/Remarks: STAGE ONE ALZHEIMER DISEASE Physical Exam Vital Sings: Vital Signs Temperature 98.2 F 05/29/19 10:00 Pulse Rate 84 05/29/19 10:00 Respiratory Rate 18 05/29/19 10:00 Blood Pressure 188/73 H 05/29/19 10:00 O2 Sat by Pulse Oximetry (%) 100 05/29/19 02:30 Constitutional: Yes: Anxious, Mild Distress Eyes: Yes: EOM Intact HENT: Yes: Normocephalic Neck: Yes: Trachea Midline Cardiovascular: Yes: Regular Rate and Rhythm, S1, S2 Respiratory: Yes: Diminished, Rales Gastrointestinal: Yes: Soft, Abdomen, Obese Edema: No Neurological: Yes: Pre-Existing Deficit Labs: CBC, BMP 05/29/19 07:21 05/29/19 07:21 ABG Results ABG pH 7.32 (7.35-7.45) L 05/29/19 04:10 ABG pCO2 at Pt Temp 39.9 mmHg (35-45) 05/29/19 04:10 ABG pO2 at Pt Temp 136 mmHg (80-105) H 05/29/19 04:10 ABG HCO3 19.9 mmol/L (22-27) L 05/29/19 04:10 ABG O2 Sat (Measured) 98.9 % (95-98) H 05/29/19 04:10 ABG O2 Content 10.0 % vol (15-22) L 05/29/19 04:10 ABG Base Excess -5.2 meq/l (-2-2) L 05/29/19 04:10 REST REVIEWED Imaging - Results Chest X-ray: Report Reviewed, Image Reviewed EKG: Report Reviewed, Image Reviewed Problem List - Problems (1) ASHD (arteriosclerotic heart disease) Code(s): I25.10 - ATHSCL HEART DISEASE OF [place] CORONARY ARTERY W/O ANG PCTRS (2) CHF exacerbation Code(s): I50.9 - HEART FAILURE, UNSPECIFIED Qualifiers: Heart failure type: diastolic Qualified Code(s): I50.33 - Acute on chronic diastolic (congestive) heart failure (3) COPD exacerbation Code(s): J44.1 - CHRONIC OBSTRUCTIVE PULMONARY DISEASE W (ACUTE) EXACERBATION (4) Myocardial infarction, old Code(s): I25.2 - OLD MYOCARDIAL INFARCTION Assessment/Plan AGREE WITH TREATMENT FOR HEART FAILURE/DIURETICS/MONITOR PARAMETERS/BP CONTROL WOULD ALSO SUPPLEMENT O2/BRONCHODILATORS/BRIEF COURSE SYSTEMIC STEROIDS FOR NOW SUGGEST TRANSFER TO TELE WHEN BED AVAILABLE CARDIO FOLLOW UP THANK YOU FOR THE CONSULT Simran TOWNSEND MD
[2019-05-29] MEDS: HEPARIN NA (PORCINE) 5,000 UNITS/ML 1ML VIAL SQ SCH ×2 (14:16→21:22)
[2019-05-29] MEDS: BUDESONIDE/FORMETEROL FUMARATE 160/4.5 mcg INHALER IH SCH ×2 (14:21→21:30)
[2019-05-29] MEDS: methylPREDNISolone NA SUCC 40 MG/1 ML VIAL IVPUSH SCH (18:35)
--- NOTE | 2019-05-29 19:19 | CON.NEP ---
Consult Consult Specialty:: nephrology Referred by:: dr alvarado Reason for Consultation:: marcell on chronic - History of Present Illness Chief Complaint: decompensated heart failure History of Present Illness: # Acute Respiratory failure 2/2 CHF exacerbation (EF and etiology unknown) with potential COPD contribution # Hypertensive Urgency # CKD-III with unknown baseline Cr, r/o MARCELL # CAD s/p PCI # Acute cystitis # Leukocytosis # Normocytic Anemia # Anxiety/Sundowning with hsitory of Alzheimer's dementia # Relatively prolonged QTc (490) #Apparent SOB, likely 2/2 anxiety Pt has no recorded decompensation Unknown home O2 status When transitioned to 2L NC, she maintained sats >94% consistently while talking and extreme anxiety. Anxiety may have mimicked resp failure Repeat ABG off BiPAP to assess if pt is really hypercarbic #CHF exacerbation 60mg IV lasix Monitor electrolytes, daily weights, and I's & O's, optimize Mg and K Possible noncompliance with medication may have triggered exacerbation #COPD Duonebs Q6H and albuterol nebs prn Prednisone PO Monitoring pt off BiPAP. Repeat ABG, if pt is hypoxic, upgrade to venti mask Not necessarily exacerbation by GOLD criteria. No cough, change in sputum, and no documented hypoxia #Hypertensive Urgency Cont home meds (doxazosin 4mg, nebivolol 10mg) and add hydralazine 35mg Frequent monitoring #CKD-III, rule out MARCELL Unknown baseline Cr Likely 2/2 to CHF exacerbation Repeat BMP in am. Pt will likely need increase lasix dose. Consider nephro consult #Leukocytosis Recent infection may have contributed No infiltrates on CXR, no fevers, thus less likely an infectious process. 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 No: O2 Dependent Gastrointestinal: No: Cancer Hepatobiliary: No: Cirrhosis Renal/: Yes: Renal Failure ...: No Psych: No: Addictions Endocrine: No: Diabetes Mellitus - Alcohol/Substance Use Hx Alcohol Use: No - Smoking History Smoking history: Former smoker Have you smoked in the past 12 months: No Home Medications - Allergies Allergies/Adverse Reactions: Allergies Allergy/AdvReac Type Severity Reaction Status Date / Time erythromycin base Allergy Unknown Verified 05/28/19 20:18 Penicillins Allergy Unknown Verified 05/28/19 20:18 - Home Medications Home Medications: Ambulatory Orders Amlodipine Besylate 10 mg PO DAILY 05/29/19 Aspirin [Ecotrin] 81 mg PO DAILY 05/29/19 Atorvastatin Ca [Lipitor] 40 mg PO HS 05/29/19 Calcium Carb, Citrate/Vit D3 [Calcium + D3 ER Tablet] 1 tab PO DAILY 05/29/19 Doxazosin Mesylate 2 mg PO AM 05/29/19 Doxazosin Mesylate 4 mg PO HS 05/29/19 Furosemide [Lasix] 40 mg PO DAILY 05/29/19 Hydralazine HCl 35 mg PO AM 05/29/19 Hydralazine HCl 35 mg PO HS 05/29/19 Nebivolol HCl [Bystolic] 10 mg PO DAILY 05/29/19 Nephrology Consult - Height Height: 4 ft 11 in - Weight Weight: 116 lb - BMI Body Mass Index (BMI): 23.4 - Lab Results CBC,BMP: CBC, BMP 05/29/19 07:21 05/29/19 07:21 Anion Gap: Anion Gap Anion Gap 12 MMOL/L (8-16) 05/29/19 07:21 - Physical Examination Vital Signs: Vital Signs Temperature 98.3 F 05/29/19 16:30 Pulse Rate 81 05/29/19 16:30 Respiratory Rate 22 H 05/29/19 16:30 Blood Pressure 160/55 L 05/29/19 16:30 O2 Sat by Pulse Oximetry (%) 100 05/29/19 02:30 Constitutional: Yes: Well Nourished, No Distress, Calm Eyes: Yes: WNL, Conjunctiva Clear, EOM Intact HENT: Yes: WNL, Atraumatic, Normocephalic Neck: Yes: WNL, Supple, Trachea Midline Respiratory: Yes: WNL, Regular, CTA Bilaterally Gastrointestinal: Yes: WNL, Normal Bowel Sounds Renal/: Yes: WNL Musculoskeletal: Yes: WNL Extremities: Yes: WNL Edema: No Integumentary: Yes: WNL Neurological: Yes: Confusion Psychiatric: Yes: Agitated Assessment/Plan acute on chronic renal failure CKD stage 4 (egfr 23, s creat 1.9 according to daughter) 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
[2019-05-29] MEDS: DOXAZOSIN MESYLATE 4 MG TABLET PO SCH (21:22)
[2019-05-29] MEDS: ATORVASTATIN CA 40 MG TABLET (FP) PO SCH (21:22)
[2019-05-30] MEDS ORDERED: LORazepam 2 MG/ML SDV VIAL IM ONE (00:47)
[2019-05-30] MEDS ORDERED: LORazepam 2 MG/ML SDV VIAL ONE (00:52)
[2019-05-30] MEDS: methylPREDNISolone NA SUCC 40 MG/1 ML VIAL IVPUSH SCH ×3 (01:50→17:37)
[2019-05-30] MEDS ORDERED: hydrALAZINE HCL 25 MG TABLET (FP) ONE ×2 (05:12→21:59)
[2019-05-30] MEDS ORDERED: hydrALAZINE HCL 10 MG TABLET ONE ×2 (05:12→21:58)
[2019-05-30] MEDS: HEPARIN NA (PORCINE) 5,000 UNITS/ML 1ML VIAL SQ SCH ×3 (06:04→23:03)
[2019-05-30] MEDS: hydrALAZINE HCL 25 MG, hydrALAZINE HCL 10 MG PO SCH ×2 (07:04→23:03)
[2019-05-30] MEDS: DOXAZOSIN MESYLATE 2 MG TABLET (FP) PO SCH (07:05)
[2019-05-30 07:07] LABS: SERUM IRON SATURATION 12 % (15-55); TOTAL IRON BINDING CAPACITY 274 ug/dL (250-450)
[2019-05-30] MEDS: ALBUTEROL SO4 2.5/IPRATROPIUM 0.5 INH SOL 3 ML VIAL.NEB. NEB SCH ×4 (07:25→20:46)
--- NOTE | 2019-05-30 08:33 | PN ---
Physical Exam: SUBJECTIVE: Patient seen and examined. Extremely anxious overnight. Did not want to use BiPAP machine and kept pulling it off, but has very difficulty breathing without. Given ativan 0.5mg to help anxiety, then slept well with BiPAP. OBJECTIVE: Vital Signs Period Temp Pulse Resp BP Sys/Michelle Pulse Ox Last 24 Hr 98.2 F-98.7 F 81-95 18-24 114-188/55-92 93-100 GENERAL: The patient is awake, alert, and fully oriented, in no acute distress. HEAD: Normal with no signs of trauma. EYES: PERRL, extraocular movements intact, sclera anicteric, conjunctiva clear. No ptosis. ENT: Ears normal, nares patent, oropharynx clear without exudates, moist mucous membranes. NECK: Trachea midline, full range of motion, supple. LUNGS: Diffuse crackles (christina at bases). Mild wheezing throughout. Accessory muscle use. HEART: Tachycardic, S1, S2 without murmur, rub or gallop. + JVD ABDOMEN: Soft, nontender, nondistended, normoactive bowel sounds, no guarding, no rebound, no hepatosplenomegaly, no masses. EXTREMITIES: 2+ pulses, warm, well-perfused, no edema. NEUROLOGICAL: Cranial nerves II through XII grossly intact. Normal speech, gait not observed. PSYCH: Normal mood, normal affect. SKIN: Warm, dry, normal turgor, no rashes or lesions noted Laboratory Results - last 24 hr CBC, BMP 05/29/19 07:21 05/29/19 07:21 Active Medications Albuterol Sulfate (Ventolin 0.083% Nebulizer Soln -) 1 amp NEB Q4H PRN PRN Reason: SHORT OF BREATH/WHEEZING Albuterol/Ipratropium (Duoneb -) 1 amp NEB RQID [facility] Last Admin: 05/30/19 07:25 Dose: 1 amp Amlodipine Besylate (Norvasc -) 10 mg PO DAILY [facility] Last Admin: 05/29/19 10:18 Dose: 10 mg Aspirin (Ecotrin -) 81 mg PO DAILY [facility] Last Admin: 05/29/19 10:18 Dose: 81 mg Atorvastatin Calcium (Lipitor -) 40 mg PO HS [facility] Last Admin: 05/29/19 21:22 Dose: 40 mg Budesonide/Formoterol Fumarate (Symbicort 160/4.5mcg -) 2 puff IH BID [facility] Last Admin: 05/29/19 21:30 Dose: 2 units Doxazosin Mesylate (Cardura -) 2 mg PO AM [facility] Last Admin: 05/30/19 07:05 Dose: Not Given Doxazosin Mesylate (Cardura -) 4 mg PO HS [facility] Last Admin: 05/29/19 21:22 Dose: 4 mg Furosemide (Lasix Injection -) 60 mg IVPUSH DAILY [facility] Last Admin: 05/29/19 10:18 Dose: 60 mg Heparin Sodium (Porcine) (Heparin -) 5,000 unit SQ TID [facility] Last Admin: 05/30/19 06:04 Dose: 5,000 unit Hydralazine HCl 25 mg/ (Hydralazine HCl 10 mg) 35 mg PO BID@0700,2200 [facility] Last Admin: 05/30/19 07:04 Dose: Not Given Ceftriaxone Sodium 1 gm/ (Dextrose) 50 mls @ 100 mls/hr IVPB DAILY [facility] Methylprednisolone Sodium Succinate (Solu-Medrol -) 20 mg IVPUSH Q8H-IV [facility] Last Admin: 05/30/19 01:50 Dose: 20 mg Nebivolol (Bystolic -) 10 mg PO DAILY [facility] Last Admin: 05/29/19 10:24 Dose: 10 mg ASSESSMENT/PLAN: Pt is an 84 year old female from [facility], with a PMH of diastolic heart failure, stage 3 renal failure (not on hemodialysis), [place] (drug eluting stent several years ago), L carotid endarterectomy, alzheimers who presents to the ED with 2 days of worsening SOB. #Acute respiratory failure 2/2 COPD exacerbation with CHF exacerbation CXR:no signs of acute CHF or pulm edema. Repeat in morning Echo ordered (to be compared to previous echo) BiPAP prn and HS Per Dr. Heránndez, 20mg solumedrol IV push Q8H, dc tomorrow if improved Nebs prn and Symbicort 60mg IV furosemide daily, pulm and nephro on board Monitor electrolytes, daily weights, and I's & O's, optimize Mg and K #Hypertensive Urgency Resume home meds nebivolol 10mg qd, hydralazine 35g BID, cardura 2mg qd, amlodipine 10mg qd Frequent monitoring Per daughter, baseline BP 150-160 #MARCELL, likely prerenal azotemia Baseline Cr 1.8-2.1 Likely 2/2 to CHF exacerbation or steroid dependent Cont to monitor BMP Renal US: pt refused Nephro on board #Anxiety Ordered a sitter to be with pt throughout the day and monitor her on/off BiPAP Daughter will stay with pt overnight Trying to avoid ativan at night. If pt is excessively anxious and pulling BiPAP off, assess for resp failure or decompensation. See if she saturates okay NC. Can give ondansetron if necessary #UTI Continue ceftriaxone (day 3) #FEN Hold fluids for now Sodium controlled diet #DVT ppx Heparin SQ #Dispo Transfer to tele Code status : she has a living will which states " DNR/DNI" spoke to laverne Garcia over the phone who expressed she wanted her mom to be full code. Dayron at bedside agrees. Spoke to Bill, HCP, over phone ), and he agrees to full code. Visit type - Emergency Visit Emergency Visit: No - New Patient This patient is new to me today: No - Critical Care Critical Care patient: No ATTENDING PHYSICIAN STATEMENT I saw and evaluated the patient. I reviewed the resident's note and discussed the case with the resident. I agree with the resident's findings and plan as documented. SUBJECTIVE: OBJECTIVE: ASSESSMENT AND PLAN:
[2019-05-30 08:57] LABS: BASO % 0.1 % (0-2.0); HEMATOCRIT 24.7 % (32.4-45.2); HEMOGLOBIN 8.4 GM/dL (10.7-15.3); LYMPH % 1.7 % (8-40); MCH 29.9 pg (25.7-33.7); MCHC 33.9 g/dl (32.0-36.0); MEAN CELL VOLUME 88.3 fl (80-96); MEAN PLT VOLUME 11.1 fl (7.5-11.1); MONO % 2.8 % (3.8-10.2); NEUT % 95.4 % (42.8-82.8); PLATELET COUNT 197 K/MM3 (134-434); RDW 13.7 % (11.6-15.6); WHITE BLOOD COUNT 23.4 K/mm3 (4.0-10.0)
[2019-05-30] MEDS ORDERED: cefTRIAXone SODIUM 1 GM VIAL ONE (08:59)
[2019-05-30] MEDS ORDERED: DEXTROSE 5%-WATER - 50 ML IVPB ONE (08:59)
[2019-05-30] MEDS: ASPIRIN COATED 81 MG TABLET.EC PO SCH (09:30)
[2019-05-30] MEDS: FUROSEMIDE 40 MG/4 ML INJECTABLE VIAL IVPUSH SCH (09:30)
[2019-05-30] MEDS: NEBIVOLOL 10 MG TABLET (FP) PO SCH (09:30)
[2019-05-30] MEDS: amLODIPine BESYLATE 10 MG TABLET (FP) PO SCH (09:30)
[2019-05-30 09:52] LABS: CREATININE 3.1 mg/dL (0.55-1.3); MAGNESIUM 2.4 mg/dL (1.8-2.4); PHOSPHOROUS 4.1 mg/dL (2.5-4.9); POTASSIUM 3.9 mmol/L (3.5-5.1)
[2019-05-30] MEDS ORDERED: predniSONE 20 MG TABLET (UD) PO SCH (10:00)
--- NOTE | 2019-05-30 10:16 | PN ---
Progress Note (short form) - Note Progress Note: PULMONARY Ambulated with physical therapy. Denies shortness of breath but visibly mildly tachypneic at rest. Vital Signs Period Temp Pulse Resp BP Sys/Michelle Pulse Ox Last 24 Hr 98.3 F-98.7 F 81-95 18-24 114-174/55-92 93-100 Gen: mildly tachypneic at rest Heart: RRR Lung: decreased breath sounds at the bases, no wheezes Abd: soft, nontender Ext: no edema CBC, BMP 05/30/19 07:50 05/30/19 07:50 Active Medications Albuterol Sulfate (Ventolin 0.083% Nebulizer Soln -) 1 amp NEB Q4H PRN PRN Reason: SHORT OF BREATH/WHEEZING Albuterol/Ipratropium (Duoneb -) 1 amp NEB RQID [facility] Last Admin: 05/30/19 07:25 Dose: 1 amp Amlodipine Besylate (Norvasc -) 10 mg PO DAILY [facility] Last Admin: 05/30/19 09:30 Dose: 10 mg Aspirin (Ecotrin -) 81 mg PO DAILY [facility] Last Admin: 05/30/19 09:30 Dose: 81 mg Atorvastatin Calcium (Lipitor -) 40 mg PO HS [facility] Last Admin: 05/29/19 21:22 Dose: 40 mg Budesonide/Formoterol Fumarate (Symbicort 160/4.5mcg -) 2 puff IH BID [facility] Last Admin: 05/29/19 21:30 Dose: 2 units Doxazosin Mesylate (Cardura -) 2 mg PO AM [facility] Last Admin: 05/30/19 07:05 Dose: Not Given Doxazosin Mesylate (Cardura -) 4 mg PO HS [facility] Last Admin: 05/29/19 21:22 Dose: 4 mg Furosemide (Lasix Injection -) 60 mg IVPUSH DAILY [facility] Last Admin: 05/30/19 09:30 Dose: 60 mg Heparin Sodium (Porcine) (Heparin -) 5,000 unit SQ TID [facility] Last Admin: 05/30/19 06:04 Dose: 5,000 unit Hydralazine HCl 25 mg/ (Hydralazine HCl 10 mg) 35 mg PO BID@0700,2200 [facility] Last Admin: 05/30/19 07:04 Dose: Not Given Ceftriaxone Sodium 1 gm/ (Dextrose) 50 mls @ 100 mls/hr IVPB DAILY [facility] Methylprednisolone Sodium Succinate (Solu-Medrol -) 20 mg IVPUSH Q8H-IV [facility] Last Admin: 05/30/19 09:31 Dose: 20 mg Nebivolol (Bystolic -) 10 mg PO DAILY [facility] Last Admin: 05/30/19 09:30 Dose: 10 mg A/P Acute on Chronic Diastolic Heart Failure r/o Acute COPD Exacerbation Acute on Chronic Renal Failure UTI CAD HTN Dementia - continue lasix - monitor urine output, creatinine - daily weights - echocardiogram - repeat CXR in AM - short course of medrol, can likely d/c in AM if continues to improve - inhaled bronchodilators - continue antibiotics for UTI - f/u cultures - DVT prophylaxis
--- NOTE | 2019-05-30 10:19 | PN ---
Progress Note, Physician Chief Complaint: The patient seen and examined in a chair. Seems comfortable. denies any chest pain, or shortness of breath. O2 by Nasal cannula in place. Reports feeling better. Good appetite. Seems confused. History of Present Illness: Pt is an 84 year old female past mediacl history of Congestive heart failure, CKD 3-4, Coronary artery disease, [place], s/p PTIC, stenting, PVD< Left carotid endarterectomy, Alzheimers who presented to the hospital with worsening shortmess of breath. The patient has history of COPD Reports feeling better simce admission. - Current Medication List Current Medications: Active Medications Albuterol Sulfate (Ventolin 0.083% Nebulizer Soln -) 1 amp NEB Q4H PRN PRN Reason: SHORT OF BREATH/WHEEZING Albuterol/Ipratropium (Duoneb -) 1 amp NEB RQID [facility] Last Admin: 05/30/19 07:25 Dose: 1 amp Amlodipine Besylate (Norvasc -) 10 mg PO DAILY [facility] Last Admin: 05/30/19 09:30 Dose: 10 mg Aspirin (Ecotrin -) 81 mg PO DAILY [facility] Last Admin: 05/30/19 09:30 Dose: 81 mg Atorvastatin Calcium (Lipitor -) 40 mg PO HS [facility] Last Admin: 05/29/19 21:22 Dose: 40 mg Budesonide/Formoterol Fumarate (Symbicort 160/4.5mcg -) 2 puff IH BID [facility] Last Admin: 05/29/19 21:30 Dose: 2 units Doxazosin Mesylate (Cardura -) 2 mg PO AM [facility] Last Admin: 05/30/19 07:05 Dose: Not Given Doxazosin Mesylate (Cardura -) 4 mg PO HS [facility] Last Admin: 05/29/19 21:22 Dose: 4 mg Furosemide (Lasix Injection -) 60 mg IVPUSH DAILY [facility] Last Admin: 05/30/19 09:30 Dose: 60 mg Heparin Sodium (Porcine) (Heparin -) 5,000 unit SQ TID [facility] Last Admin: 05/30/19 06:04 Dose: 5,000 unit Hydralazine HCl 25 mg/ (Hydralazine HCl 10 mg) 35 mg PO BID@0700,2200 [facility] Last Admin: 05/30/19 07:04 Dose: Not Given Ceftriaxone Sodium 1 gm/ (Dextrose) 50 mls @ 100 mls/hr IVPB DAILY [facility] Methylprednisolone Sodium Succinate (Solu-Medrol -) 20 mg IVPUSH Q8H-IV [facility] Last Admin: 05/30/19 09:31 Dose: 20 mg Nebivolol (Bystolic -) 10 mg PO DAILY [facility] Last Admin: 05/30/19 09:30 Dose: 10 mg - Objective Vital Signs: Vital Signs Temperature 98.5 F 05/30/19 06:00 Pulse Rate 92 H 05/30/19 06:00 Respiratory Rate 20 05/30/19 06:00 Blood Pressure 174/92 H 05/30/19 06:00 O2 Sat by Pulse Oximetry (%) 98 05/30/19 00:25 Constitutional: Yes: No Distress, Anxious Eyes: Yes: Conjunctiva Clear HENT: Yes: Normocephalic Neck: Yes: Trachea Midline Cardiovascular: Yes: Regular Rate and Rhythm, S1, S2 Respiratory: Yes: Diminished, On Nasal O2, Rales (at the bases) Gastrointestinal: Yes: Normal Bowel Sounds, Soft Neurological: Yes: Alert, Confusion Labs: CBC, BMP 05/30/19 07:50 05/30/19 07:50 Assessment/Plan Pt is an 84 year old female past medical history of Congestive heart failure, CKD 3-4, Coronary artery disease, [place], s/p PTIC, stenting, PVD< Left carotid endarterectomy, Alzheimers who presented to the hospital with worsening shortmess of breath. Chronic Kidney disease, advanced Stage 4. 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 Blood pressure fairly well controlled at this point. There is possibly some degree of acute renal failure superimposed on the chronic renal disease. The reversibility of this acute renal dysfunction remains to be seen. Some of the azotemia is steroid dependent. Will continue the current management. Monitor electrolytes closely. No overt indication for renal replacement therapy at this point. Thank you. Cinthya Alexander MD
[2019-05-30] MEDS: CEFTRIAXONE 1 GM in DEXTROSE 5%-WATER - 50 ML IVPB SCH (10:41)
[2019-05-30 11:38] LABS: ANISOCYTOSIS 1+; MACROCYTOSIS 0; PLATELET ESTIMATE NORMAL
[2019-05-30] MEDS: BUDESONIDE/FORMETEROL FUMARATE 160/4.5 mcg INHALER IH SCH ×2 (12:22→23:03)
--- NOTE | 2019-05-30 15:56 | PN ---
Progress Note (short form) - Note Progress Note: s: confused, wearing bipap. had sob, improved with bipap. Current Medications Albuterol Sulfate (Ventolin 0.083% Nebulizer Soln -) 1 amp NEB Q4H PRN PRN Reason: SHORT OF BREATH/WHEEZING Albuterol/Ipratropium (Duoneb -) 1 amp NEB RQID [facility] Last Admin: 05/30/19 11:37 Dose: 1 amp Amlodipine Besylate (Norvasc -) 10 mg PO DAILY [facility] Last Admin: 05/30/19 09:30 Dose: 10 mg Aspirin (Ecotrin -) 81 mg PO DAILY [facility] Last Admin: 05/30/19 09:30 Dose: 81 mg Atorvastatin Calcium (Lipitor -) 40 mg PO HS [facility] Last Admin: 05/29/19 21:22 Dose: 40 mg Budesonide/Formoterol Fumarate (Symbicort 160/4.5mcg -) 2 puff IH BID [facility] Last Admin: 05/30/19 12:22 Dose: Not Given Doxazosin Mesylate (Cardura -) 2 mg PO AM [facility] Last Admin: 05/30/19 07:05 Dose: Not Given Doxazosin Mesylate (Cardura -) 4 mg PO HS [facility] Last Admin: 05/29/19 21:22 Dose: 4 mg Furosemide (Lasix Injection -) 60 mg IVPUSH DAILY [facility] Last Admin: 05/30/19 09:30 Dose: 60 mg Heparin Sodium (Porcine) (Heparin -) 5,000 unit SQ TID [facility] Last Admin: 05/30/19 14:56 Dose: 5,000 unit Hydralazine HCl 25 mg/ (Hydralazine HCl 10 mg) 35 mg PO BID@0700,2200 [facility] Last Admin: 05/30/19 07:04 Dose: Not Given Ceftriaxone Sodium 1 gm/ (Dextrose) 50 mls @ 100 mls/hr IVPB DAILY [facility] Last Admin: 05/30/19 10:41 Dose: 100 mls/hr Methylprednisolone Sodium Succinate (Solu-Medrol -) 20 mg IVPUSH Q8H-IV [facility] Last Admin: 05/30/19 09:31 Dose: 20 mg Nebivolol (Bystolic -) 10 mg PO DAILY [facility] Last Admin: 05/30/19 09:30 Dose: 10 mg Vital Signs Period Temp Pulse Resp BP Sys/Michelle Pulse Ox Last 24 Hr 98.3 F-98.7 F 81-95 18-24 114-174/55-92 93-100 nad no jvd rrr s1s2 no mrg bibasilar crackles, nl eff abd nt nd pos bs no jaundice diaphoresis pos dp tp no carotid bruits awake, alert, confused no le e/c/c ecg: sr, nl intervals, no st changes, lat twis cxr: chf a/p: 84 f hx dementia, ckd, cea, diastolic chf, htn, hld, mi s/p remote pci, here with sob. sob, acute diastolic chf: -cont iv lasix 60 qd. daily wts and chem7, Cr stable -check echo ckd: -cr near baseline, renal following htn: -cont home meds hld: -cont statin cad, s/p mi and remote pci: -no signs acs -cont statin, asa, bb, nitrate
--- NOTE | 2019-05-30 16:49 | PN ---
Teaching Attending Note Name of Resident: Ubaldo Medina ATTENDING PHYSICIAN STATEMENT I saw and evaluated the patient. I reviewed the resident's note and discussed the case with the resident. I agree with the resident's findings and plan as documented. SUBJECTIVE: cont to SOB, anxious. wants BIPAP mask off OBJECTIVE: anxious, awake, and talkative. fell asleep and was comfortable after few min while I was talking with daughter CV: RRR, + JVD Lungs: bibasilar crackles, and wheezing Abd: soft, NT, ND , NL BS Ext : no edema on upper or lower extremities. Assessment/Plan: 84 y/o lady with h/ o CHF, COPD, HTN , CAD, Alzheimer, s/p PCI, who presented with worsening SOB. She was found in acute resp failure. 1- ACute resp failure due to COPD exacerbation with CHF exacerbation. -I&O net neg for 1125 cc in past 24 hr. - cont steroids - cont lasix - cont BIPAp PRN and hs if tolerated - cont symbicort - echo could not be done. will obtain out pt study form card office 2- MARCELL on CKD IV: likely prerenal azotemia due to CHF - renal US was not tolerated - monitor with diuresis 3- HTN cont home meds 4- Agitation and anxiety: -avid Benzos and opioids due to current resp status - avoid Haldol and seroquel due to prolonged QTC - advised family to stay with her at night - ? olanzapine if needed 5- Possible UTI: cont ceftriaxone . follow urine cx DVT px: SQ heparin Full code. d/w daughter over the phone and with daughter in law at bedside.
[2019-05-30] MEDS ORDERED: PT OWN MED DRAWER 7, Y5N ONE (21:59)
[2019-05-30] MEDS: DOXAZOSIN MESYLATE 4 MG TABLET PO SCH (23:03)
[2019-05-30] MEDS: ATORVASTATIN CA 40 MG TABLET (FP) PO SCH (23:03)
[2019-05-31] MEDS ORDERED: MELATONIN 5 MG TABLETS PO PRN (01:40)
[2019-05-31] MEDS: methylPREDNISolone NA SUCC 40 MG/1 ML VIAL IVPUSH SCH ×2 (01:56→12:05)
[2019-05-31] MEDS ORDERED: hydrALAZINE HCL 10 MG TABLET ONE ×2 (06:02→21:45)
[2019-05-31] MEDS ORDERED: hydrALAZINE HCL 25 MG TABLET (FP) ONE ×2 (06:03→21:45)
[2019-05-31] MEDS ORDERED: PT OWN MED DRAWER 7, Y5N ONE ×3 (06:03→21:46)
[2019-05-31] MEDS: DOXAZOSIN MESYLATE 2 MG TABLET (FP) PO SCH (06:13)
[2019-05-31] MEDS: hydrALAZINE HCL 25 MG, hydrALAZINE HCL 10 MG PO SCH ×2 (06:13→22:01)
[2019-05-31] MEDS: HEPARIN NA (PORCINE) 5,000 UNITS/ML 1ML VIAL SQ SCH ×3 (06:13→21:53)
[2019-05-31] MEDS: ALBUTEROL SO4 2.5/IPRATROPIUM 0.5 INH SOL 3 ML VIAL.NEB. NEB SCH ×4 (07:35→20:20)
[2019-05-31 08:07] LABS: ALBUMIN 3.5 g/dl (3.4-5.0); BILIRUBIN,TOTAL 0.4 mg/dL (0.2-1); BLOOD UREA NITROGEN 100.1 mg/dL (7-18); CALCIUM 7.6 mg/dL (8.5-10.1); CREATININE 2.9 mg/dL (0.55-1.3); POTASSIUM 3.7 mmol/L (3.5-5.1); TOT PROT 6.8 g/dl (6.4-8.2)
--- NOTE | 2019-05-31 10:00 | PN ---
Progress Note (short form) - Note Progress Note: PULMONARY Breathing better today per daughter at bedside. Denies shortness of breath but still visibly mildly tachypneic at rest. CXR this AM still with congestive changes. Vital Signs Period Temp Pulse Resp BP Sys/Michelle Pulse Ox Last 24 Hr 98.4 F-98.6 F 78-96 20-22 80-163/57-70 94-98 Intake & Output 05/28/19 05/29/19 05/30/19 05/31/19 23:59 23:59 23:59 23:59 Intake Total 50 200 Output Total 1200 1600 Balance -1150 -1400 Weight 118 kg 52.617 kg 53.342 kg 55.338 kg Gen: mildly tachypneic at rest Heart: RRR Lung: decreased breath sounds at the bases, no wheezes Abd: soft, nontender Ext: no edema CBC, BMP 05/30/19 07:50 05/31/19 06:20 Active Medications Albuterol Sulfate (Ventolin 0.083% Nebulizer Soln -) 1 amp NEB Q4H PRN PRN Reason: SHORT OF BREATH/WHEEZING Albuterol/Ipratropium (Duoneb -) 1 amp NEB RQID [facility] Last Admin: 05/31/19 07:35 Dose: 1 amp Amlodipine Besylate (Norvasc -) 10 mg PO DAILY [facility] Last Admin: 05/30/19 09:30 Dose: 10 mg Aspirin (Ecotrin -) 81 mg PO DAILY [facility] Last Admin: 05/30/19 09:30 Dose: 81 mg Atorvastatin Calcium (Lipitor -) 40 mg PO HS [facility] Last Admin: 05/30/19 23:03 Dose: 40 mg Budesonide/Formoterol Fumarate (Symbicort 160/4.5mcg -) 2 puff IH BID [facility] Last Admin: 05/30/19 23:03 Dose: Not Given Doxazosin Mesylate (Cardura -) 2 mg PO AM [facility] Last Admin: 05/31/19 06:13 Dose: 2 mg Doxazosin Mesylate (Cardura -) 4 mg PO HS [facility] Last Admin: 05/30/19 23:03 Dose: 4 mg Furosemide (Lasix Injection -) 60 mg IVPUSH DAILY [facility] Last Admin: 05/30/19 09:30 Dose: 60 mg Heparin Sodium (Porcine) (Heparin -) 5,000 unit SQ TID [facility] Last Admin: 05/31/19 06:13 Dose: Not Given Hydralazine HCl 25 mg/ (Hydralazine HCl 10 mg) 35 mg PO BID@0700,2200 [facility] Last Admin: 05/31/19 06:13 Dose: 35 mg Ceftriaxone Sodium 1 gm/ (Dextrose) 50 mls @ 100 mls/hr IVPB DAILY [facility] Last Admin: 05/30/19 10:41 Dose: 100 mls/hr Melatonin (Melatonin) 5 mg PO ONCE PRN PRN Reason: INSOMNIA Methylprednisolone Sodium Succinate (Solu-Medrol -) 20 mg IVPUSH Q8H-IV [facility] Last Admin: 05/31/19 01:56 Dose: Not Given Nebivolol (Bystolic -) 10 mg PO DAILY [facility] Last Admin: 05/30/19 09:30 Dose: 10 mg A/P Acute on Chronic Diastolic Heart Failure r/o Acute COPD Exacerbation Acute on Chronic Renal Failure UTI CAD HTN Dementia - continue lasix - monitor urine output, creatinine - daily weights - echocardiogram - will d/c medrol - inhaled bronchodilators - continue antibiotics for UTI - f/u cultures - DVT prophylaxis
[2019-05-31] MEDS ORDERED: cefTRIAXone SODIUM 1 GM VIAL ONE (11:13)
[2019-05-31] MEDS ORDERED: DEXTROSE 5%-WATER - 50 ML IVPB ONE (11:14)
[2019-05-31] MEDS: FUROSEMIDE 40 MG/4 ML INJECTABLE VIAL IVPUSH SCH (11:26)
[2019-05-31] MEDS: amLODIPine BESYLATE 10 MG TABLET (FP) PO SCH ×2 (11:28→12:38)
[2019-05-31] MEDS: CEFTRIAXONE 1 GM in DEXTROSE 5%-WATER - 50 ML IVPB SCH (11:28)
[2019-05-31] MEDS: ASPIRIN COATED 81 MG TABLET.EC PO SCH (11:29)
[2019-05-31] MEDS ORDERED: POLYETHYLENE GLYCOL 3350 119 GM BTL PO PRN (12:20)
[2019-05-31] MEDS: BUDESONIDE/FORMETEROL FUMARATE 160/4.5 mcg INHALER IH SCH ×2 (12:24→22:01)
[2019-05-31] MEDS: predniSONE 20 MG TABLET (UD) PO SCH (12:24)
[2019-05-31] MEDS: NEBIVOLOL 10 MG TABLET (FP) PO SCH (12:33)
--- NOTE | 2019-05-31 13:32 | PN ---
Physical Exam: SUBJECTIVE: Patient seen and examined. Overnight, she satted >94% on 4L NC. Was slightly anxious through the night, but improved from the prior evening. OBJECTIVE: Vital Signs Period Temp Pulse Resp BP Sys/Michelle Pulse Ox Last 24 Hr 97.5 F-98.6 F 78-96 20-22 80-163/57-70 94-98 GENERAL: The patient is awake, alert, and fully oriented, in no acute distress. HEAD: Normal with no signs of trauma. EYES: PERRL, extraocular movements intact, sclera anicteric, conjunctiva clear. No ptosis. ENT: Ears normal, nares patent, oropharynx clear without exudates, moist mucous membranes. NECK: Trachea midline, full range of motion, supple. LUNGS: Mild crackles at base. Mild wheezes throughout. Accessory muscle use. HEART: Tachycardic, S1, S2 without murmur, rub or gallop. + JVD ABDOMEN: Soft, nontender, nondistended, normoactive bowel sounds, no guarding, no rebound, no hepatosplenomegaly, no masses. EXTREMITIES: 2+ pulses, warm, well-perfused, no edema. NEUROLOGICAL: Cranial nerves II through XII grossly intact. Normal speech, gait not observed. PSYCH: Normal mood, normal affect. SKIN: Warm, dry, normal turgor, no rashes or lesions noted Laboratory Results - last 24 hr 05/31/19 06:20 Sodium 142 Potassium 3.7 Chloride 107 Carbon Dioxide 23 Anion Gap 12 BUN 100.1 H Creatinine 2.9 H Est GFR (CKD-EPI)AfAm 16.31 Est GFR (CKD-EPI)NonAf 14.07 Random Glucose 135 H Calcium 7.6 L Total Bilirubin 0.4 AST 46 H ALT 42 Alkaline Phosphatase 55 Total Protein 6.8 Albumin 3.5 Active Medications Albuterol Sulfate (Ventolin 0.083% Nebulizer Soln -) 1 amp NEB Q4H PRN PRN Reason: SHORT OF BREATH/WHEEZING Albuterol/Ipratropium (Duoneb -) 1 amp NEB RQID [facility] Last Admin: 05/31/19 11:32 Dose: 1 amp Amlodipine Besylate (Norvasc -) 10 mg PO DAILY [facility] Last Admin: 05/31/19 12:38 Dose: Not Given Aspirin (Ecotrin -) 81 mg PO DAILY [facility] Last Admin: 05/31/19 11:29 Dose: 81 mg Atorvastatin Calcium (Lipitor -) 40 mg PO HS [facility] Last Admin: 05/30/19 23:03 Dose: 40 mg Budesonide/Formoterol Fumarate (Symbicort 160/4.5mcg -) 2 puff IH BID [facility] Last Admin: 05/31/19 12:24 Dose: 2 units Doxazosin Mesylate (Cardura -) 2 mg PO AM [facility] Last Admin: 05/31/19 06:13 Dose: 2 mg Doxazosin Mesylate (Cardura -) 4 mg PO HS [facility] Last Admin: 05/30/19 23:03 Dose: 4 mg Furosemide (Lasix Injection -) 60 mg IVPUSH DAILY [facility] Last Admin: 05/31/19 11:26 Dose: 60 mg Heparin Sodium (Porcine) (Heparin -) 5,000 unit SQ TID [facility] Last Admin: 05/31/19 06:13 Dose: Not Given Hydralazine HCl 25 mg/ (Hydralazine HCl 10 mg) 35 mg PO BID@0700,2200 [facility] Last Admin: 05/31/19 06:13 Dose: 35 mg Ceftriaxone Sodium 1 gm/ (Dextrose) 50 mls @ 100 mls/hr IVPB DAILY [facility] Last Admin: 05/31/19 11:28 Dose: 100 mls/hr Melatonin (Melatonin) 5 mg PO ONCE PRN PRN Reason: INSOMNIA Nebivolol (Bystolic -) 10 mg PO DAILY [facility] Last Admin: 05/31/19 12:33 Dose: Not Given Polyethylene Glycol (Miralax (For Daily Use) -) 17 gm PO DAILY PRN PRN Reason: CONSTIPATION Prednisone (Deltasone -) 40 mg PO DAILY [facility] Last Admin: 05/31/19 12:24 Dose: 40 mg ASSESSMENT/PLAN: Pt is an 84 year old female from [facility], with a PMH of diastolic heart failure, stage 3 renal failure (not on hemodialysis), [place] (drug eluting stent several years ago), L carotid endarterectomy, alzheimers who presents to the ED with 2 days of worsening SOB. #Acute respiratory failure 2/2 COPD exacerbation with CHF exacerbation CXR: progressive bibasilar pulmonary and pleural findings Echo ordered, pt may not tolerate but will try at bedside with daughter present BiPAP prn and HS if tolerated 40mg prednisone po daily Nebs prn and Symbicort 60mg IV furosemide daily, pulm and nephro on board Monitor electrolytes, daily weights, and I's & O's, optimize Mg and K #Hypertensive Urgency Resume home meds nebivolol 10mg qd, hydralazine 35g BID, cardura 2mg qd, amlodipine 10mg qd Frequent monitoring Per daughter, baseline BP 150-160 #MARCELL, likely prerenal azotemia Baseline Cr 1.8-2.1 Likely 2/2 to CHF exacerbation or steroid dependent Cont to monitor BMP Renal US: pt refused Nephro on board #Anxiety Ordered a sitter to be with pt throughout the day and monitor her on/off BiPAP Daughter or pt's test kitchen home economist will stay with pt overnight If pt is excessively anxious and pulling BiPAP off, assess for resp failure. See if she saturates okay NC. Can give olanzapine if necessary #UTI Continue ceftriaxone (day 4) #FEN Hold fluids for now Sodium controlled diet #DVT ppx Heparin SQ #Dispo Transfer to tele Code status : she has a living will which states " DNR/DNI" spoke to laverne Garcia over the phone who expressed she wanted her mom to be full code. Dayron at bedside agrees. Spoke to Bill, [facility], over phone ), and he agrees to full code. Visit type - Emergency Visit Emergency Visit: No - New Patient This patient is new to me today: No - Critical Care Critical Care patient: No ATTENDING PHYSICIAN STATEMENT I saw and evaluated the patient. I reviewed the resident's note and discussed the case with the resident. I agree with the resident's findings and plan as documented. SUBJECTIVE: OBJECTIVE: ASSESSMENT AND PLAN:
--- NOTE | 2019-05-31 14:28 | PN ---
Progress Note (short form) - Note Progress Note: Renal follow up for MARCELL on CKD Pt seen and examined at the bedside awake and alert sitting at the bedside on NC O2 denies any sob, chest pain, abd pain, fever or chills Vital Signs Temperature 97.5 F L 05/31/19 12:33 Pulse Rate 79 05/31/19 12:33 Respiratory Rate 22 H 05/31/19 12:33 Blood Pressure 105/65 05/31/19 12:33 O2 Sat by Pulse Oximetry (%) 94 L 05/31/19 11:32 Intake & Output 05/28/19 05/29/19 05/30/19 05/31/19 23:59 23:59 23:59 23:59 Intake Total 50 200 Output Total 1200 1600 Balance -1150 -1400 Weight 118 kg 52.617 kg 53.342 kg 55.338 kg NAD on NC O2 RRR Dec BS, no rales or wheeze soft NT/ND no LE edema CBC, BMP 05/31/19 06:20 Current Medications Albuterol Sulfate (Ventolin 0.083% Nebulizer Soln -) 1 amp NEB Q4H PRN PRN Reason: SHORT OF BREATH/WHEEZING Albuterol/Ipratropium (Duoneb -) 1 amp NEB RQID [facility] Last Admin: 05/31/19 11:32 Dose: 1 amp Amlodipine Besylate (Norvasc -) 10 mg PO DAILY [facility] Last Admin: 05/31/19 12:38 Dose: Not Given Aspirin (Ecotrin -) 81 mg PO DAILY [facility] Last Admin: 05/31/19 11:29 Dose: 81 mg Atorvastatin Calcium (Lipitor -) 40 mg PO HS [facility] Last Admin: 05/30/19 23:03 Dose: 40 mg Budesonide/Formoterol Fumarate (Symbicort 160/4.5mcg -) 2 puff IH BID [facility] Last Admin: 05/31/19 12:24 Dose: 2 units Doxazosin Mesylate (Cardura -) 2 mg PO AM [facility] Last Admin: 05/31/19 06:13 Dose: 2 mg Doxazosin Mesylate (Cardura -) 4 mg PO HS [facility] Last Admin: 05/30/19 23:03 Dose: 4 mg Furosemide (Lasix Injection -) 60 mg IVPUSH DAILY [facility] Last Admin: 05/31/19 11:26 Dose: 60 mg Heparin Sodium (Porcine) (Heparin -) 5,000 unit SQ TID [facility] Last Admin: 05/31/19 06:13 Dose: Not Given Hydralazine HCl 25 mg/ (Hydralazine HCl 10 mg) 35 mg PO BID@0700,2200 [facility] Last Admin: 05/31/19 06:13 Dose: 35 mg Ceftriaxone Sodium 1 gm/ (Dextrose) 50 mls @ 100 mls/hr IVPB DAILY [facility] Last Admin: 05/31/19 11:28 Dose: 100 mls/hr Melatonin (Melatonin) 5 mg PO ONCE PRN PRN Reason: INSOMNIA Nebivolol (Bystolic -) 10 mg PO DAILY [facility] Last Admin: 05/31/19 12:33 Dose: Not Given Polyethylene Glycol (Miralax (For Daily Use) -) 17 gm PO DAILY PRN PRN Reason: CONSTIPATION Prednisone (Deltasone -) 40 mg PO DAILY [facility] Last Admin: 05/31/19 12:24 Dose: 40 mg 84 year old female past medical history of Congestive heart failure, CKD 3-4, Coronary artery disease, [place], s/p PTIC, stenting, PVD< Left carotid endarterectomy, Alzheimers who presented to the hospital with worsening shortmess of breath. #MARCELL on CKD #CKD (baseline Cr 1.9 as of 11/2018, follow with Dr. David Diaz) #Renal cystic disease/complex cyst #Diastolic HF/Acute CHF #CAD #Proteinuria Renal function is worse then baseline but stable at this time No overt electrolyte or acid base disturbance to warrant [employer] given advaned age and co-morbid conditions pt would nto be a good candidate for dialysis would continue current tx including Lasix IV for fluid management no ROLDAN/ARB given MARCELL and low eGFR BUN is high but also due in part to steroids no signs of of uremia continue steroid taper as per pulmonary continue empiric antibiotics as per primary team Check CT of the Abd/Pelvis when respirator status is stable for better characterize renal cysts (noted to be complex on US done earlier this year) follows with urology regarding cysts Thank you Prateek Chavez DO
[2019-05-31 14:30] LABS: BASO % 0.2 % (0-2.0); HEMATOCRIT 26.5 % (32.4-45.2); HEMOGLOBIN 8.7 GM/dL (10.7-15.3); LYMPH % 3.3 % (8-40); MCH 29.8 pg (25.7-33.7); MEAN CELL VOLUME 90.4 fl (80-96); MEAN PLT VOLUME 11.1 fl (7.5-11.1); MONO % 6.7 % (3.8-10.2); NEUT % 89.8 % (42.8-82.8); PLATELET COUNT 215 K/MM3 (134-434); RBC 2.93 M/mm3 (3.60-5.2); RDW 14.3 % (11.6-15.6); WHITE BLOOD COUNT 23.5 K/mm3 (4.0-10.0)
[2019-05-31 15:06] LABS: ANISOCYTOSIS 0; MACROCYTOSIS 0; PLATELET ESTIMATE NORMAL
--- NOTE | 2019-05-31 15:24 | PN ---
Progress Note, Physician Chief Complaint: Seen and examined Daughter at bedside Patient feels warm. Says she is "breathing better" but appears dyspneic, first time I am examining her Daughter reports today is an improvement. History of Present Illness: Receiving IV Lasix and steroids Recorded weights not reliable. - Current Medication List Current Medications: Active Medications Albuterol Sulfate (Ventolin 0.083% Nebulizer Soln -) 1 amp NEB Q4H PRN PRN Reason: SHORT OF BREATH/WHEEZING Albuterol/Ipratropium (Duoneb -) 1 amp NEB RQID [facility] Last Admin: 05/31/19 11:32 Dose: 1 amp Amlodipine Besylate (Norvasc -) 10 mg PO DAILY [facility] Last Admin: 05/31/19 12:38 Dose: Not Given Aspirin (Ecotrin -) 81 mg PO DAILY [facility] Last Admin: 05/31/19 11:29 Dose: 81 mg Atorvastatin Calcium (Lipitor -) 40 mg PO HS [facility] Last Admin: 05/30/19 23:03 Dose: 40 mg Budesonide/Formoterol Fumarate (Symbicort 160/4.5mcg -) 2 puff IH BID [facility] Last Admin: 05/31/19 12:24 Dose: 2 units Doxazosin Mesylate (Cardura -) 2 mg PO AM [facility] Last Admin: 05/31/19 06:13 Dose: 2 mg Doxazosin Mesylate (Cardura -) 4 mg PO HS [facility] Last Admin: 05/30/19 23:03 Dose: 4 mg Furosemide (Lasix Injection -) 60 mg IVPUSH DAILY [facility] Last Admin: 05/31/19 11:26 Dose: 60 mg Heparin Sodium (Porcine) (Heparin -) 5,000 unit SQ TID [facility] Last Admin: 05/31/19 06:13 Dose: Not Given Hydralazine HCl 25 mg/ (Hydralazine HCl 10 mg) 35 mg PO BID@0700,2200 [facility] Last Admin: 05/31/19 06:13 Dose: 35 mg Ceftriaxone Sodium 1 gm/ (Dextrose) 50 mls @ 100 mls/hr IVPB DAILY [facility] Last Admin: 05/31/19 11:28 Dose: 100 mls/hr Melatonin (Melatonin) 5 mg PO ONCE PRN PRN Reason: INSOMNIA Nebivolol (Bystolic -) 10 mg PO DAILY [facility] Last Admin: 05/31/19 12:33 Dose: Not Given Polyethylene Glycol (Miralax (For Daily Use) -) 17 gm PO DAILY PRN PRN Reason: CONSTIPATION Prednisone (Deltasone -) 40 mg PO DAILY [facility] Last Admin: 05/31/19 12:24 Dose: 40 mg - Objective Vital Signs: Vital Signs Temperature 97.5 F L 05/31/19 12:33 Pulse Rate 79 05/31/19 12:33 Respiratory Rate 22 H 05/31/19 12:33 Blood Pressure 105/65 05/31/19 12:33 O2 Sat by Pulse Oximetry (%) 94 L 05/31/19 11:32 Constitutional: Yes: Anxious Eyes: Yes: Conjunctiva Clear Cardiovascular: Yes: Regular Rate and Rhythm, JVD Respiratory: Yes: Other (rales left base) Gastrointestinal: Yes: Soft Edema: Yes Edema: LLE: 1+, RLE: 1+ Neurological: Yes: Alert, Oriented ...Motor Strength: WNL Labs: CBC, BMP 05/31/19 06:20 05/31/19 06:20 Assessment/Plan a/p: 84 f hx dementia, ckd, cea, diastolic chf, htn, hld, mi s/p remote pci, here with sob. sob, acute diastolic chf: -cont iv lasix 60 qd. daily wts and chem7, Cr stable; as per daughter clinically improved today. -Echo pending. -Steroid taper as per pulm ckd: -cr near baseline, renal following htn: -cont home meds hld: -cont statin cad, s/p mi and remote pci: -no signs acs -cont statin, asa, bb, nitrate UTI: -Culture negative, defer abx to PMD DVT prophylaxis indicated.
--- NOTE | 2019-05-31 18:56 | PN ---
Teaching Attending Note Name of Resident: Petrona Spencer ATTENDING PHYSICIAN STATEMENT I saw and evaluated the patient. I reviewed the resident's note and discussed the case with the resident. I agree with the resident's findings and plan as documented. SUBJECTIVE: feels better today. per daughter, she slept last night and was less agitated, she did not require BIPAP over night OBJECTIVE: Awake, and alert. CV: RRR. Lungs: bibasilar crackles are minimal today.scattered minimal wheezing Abd: soft, NT, ND , NL BS Ext : no edema on upper or lower extremities. Assessment/Plan: 84 y/o lady with h/ o CHF, COPD, HTN , CAD, Alzheimer, renal cysts , s/p PCI, who presented with worsening SOB. She was found in acute resp failure. 1- ACute resp failure due to COPD exacerbation with CHF exacerbation. -I&O net neg for 1400 cc in past 24 hr. - cont steroids - cont lasix - cont BIPAp PRN and hs if tolerated - cont symbicort - echo could not be done, as pt could not tolerate. - out pt echo from dr. Concepcion's office obtained and reviwed, EF 55-60%, AR, other minimal valvular abnormalities 2- MARCELL on CKD IV: likely prerenal azotemia due to CHF - renal US was not tolerated - monitor with diuresis - She is being followed as out pt for the renal cysts. family is aware of cysts.She can't tolerate CT scan at this time. cont out pt followup 3- HTN cont home meds 4- Agitation and anxiety: -avid Benzos and opioids due to current resp status - avoid Haldol and seroquel due to prolonged QTC - advised family/familiar faces to stay with her at night 5- Possible UTI: cont ceftriaxone . urine cx neg but Abx were given before cx was sent DVT px: SQ heparin Full code. d/w daughter at bedside
[2019-05-31] MEDS: DOXAZOSIN MESYLATE 4 MG TABLET PO SCH (22:01)
[2019-05-31] MEDS: ATORVASTATIN CA 40 MG TABLET (FP) PO SCH (22:01)
[2019-06-01] MEDS ORDERED: hydrALAZINE HCL 25 MG TABLET (FP) ONE ×2 (06:27→21:29)
[2019-06-01] MEDS ORDERED: hydrALAZINE HCL 10 MG TABLET ONE ×2 (06:27→21:29)
[2019-06-01] MEDS ORDERED: PT OWN MED DRAWER 7, Y5N ONE ×3 (06:27→15:08)
[2019-06-01] MEDS: HEPARIN NA (PORCINE) 5,000 UNITS/ML 1ML VIAL SQ SCH ×3 (07:08→22:24)
[2019-06-01] MEDS: DOXAZOSIN MESYLATE 2 MG TABLET (FP) PO SCH (07:12)
[2019-06-01] MEDS: hydrALAZINE HCL 25 MG, hydrALAZINE HCL 10 MG PO SCH ×2 (07:12→22:22)
[2019-06-01] MEDS: ALBUTEROL SO4 2.5/IPRATROPIUM 0.5 INH SOL 3 ML VIAL.NEB. NEB SCH ×4 (07:30→20:30)
[2019-06-01 09:09] LABS: HEMATOCRIT 23.9 % (32.4-45.2); HEMOGLOBIN 8.1 GM/dL (10.7-15.3); MCH 29.8 pg (25.7-33.7); MCHC 33.8 g/dl (32.0-36.0); MEAN CELL VOLUME 88.1 fl (80-96); MEAN PLT VOLUME 10.6 fl (7.5-11.1); PLATELET COUNT 192 K/MM3 (134-434); RBC 2.71 M/mm3 (3.60-5.2)
--- NOTE | 2019-06-01 09:36 | PN ---
Teaching Attending Note Name of Resident: Petrona Spencer ATTENDING PHYSICIAN STATEMENT I saw and evaluated the patient. I reviewed the resident's note and discussed the case with the resident. I agree with the resident's findings and plan as documented. SUBJECTIVE: Patient is comfortable with no acute distress OBJECTIVE: Vital Signs Temperature 99.3 F 06/01/19 05:00 Pulse Rate 90 05/31/19 23:00 Respiratory Rate 22 H 06/01/19 05:00 Blood Pressure 167/77 05/31/19 23:00 O2 Sat by Pulse Oximetry (%) 95 06/01/19 07:30 GENERAL: The patient is awake, alert, and fully oriented, in no acute distress. HEAD: Normal with no signs of trauma. EYES: PERRL, extraocular movements intact, sclera anicteric, conjunctiva clear. ENT: Ears normal, oropharynx clear without exudates, moist mucous membranes. NECK: Trachea midline, full range of motion, supple. LUNGS: decreased BS BL , no accessory muscle use. HEART: Regular rate and rhythm, S1, S2 positive, S1s2 positive, JOSSY 2/6 , no rub or gallop. ABDOMEN: Soft, nontender, nondistended, normoactive bowel sounds, no guarding, no rebound, no hepatosplenomegaly, no masses. EXTREMITIES: 2+ pulses, warm, well-perfused, no edema. NEUROLOGICAL: Cranial nerves II through XII grossly intact. Normal speech, gait not observed. PSYCH: Normal mood, normal affect. SKIN: Warm, dry, normal turgor, no rashes or lesions noted CBCD WBC 23.5 K/mm3 (4.0-10.0) H 05/31/19 06:20 RBC 2.93 M/mm3 (3.60-5.2) L 05/31/19 06:20 Hgb 8.7 GM/dL (10.7-15.3) L 05/31/19 06:20 Hct 26.5 % (32.4-45.2) L 05/31/19 06:20 MCV 90.4 fl (80-96) 05/31/19 06:20 MCHC 33.0 g/dl (32.0-36.0) 05/31/19 06:20 RDW 14.3 % (11.6-15.6) 05/31/19 06:20 Plt Count 215 K/MM3 (134-434) 05/31/19 06:20 MPV 11.1 fl (7.5-11.1) 05/31/19 06:20 CMP Sodium 142 mmol/L (136-145) 05/31/19 06:20 Potassium 3.7 mmol/L (3.5-5.1) 05/31/19 06:20 Chloride 107 mmol/L (98-107) 05/31/19 06:20 Carbon Dioxide 23 mmol/L (21-32) 05/31/19 06:20 Anion Gap 12 MMOL/L (8-16) 05/31/19 06:20 BUN 100.1 mg/dL (7-18) H 05/31/19 06:20 Creatinine 2.9 mg/dL (0.55-1.3) H 05/31/19 06:20 Random Glucose 135 mg/dL (74-106) H 05/31/19 06:20 Calcium 7.6 mg/dL (8.5-10.1) L 05/31/19 06:20 Total Bilirubin 0.4 mg/dL (0.2-1) 05/31/19 06:20 AST 46 U/L (15-37) H 05/31/19 06:20 ALT 42 U/L (13-61) 05/31/19 06:20 Alkaline Phosphatase 55 U/L (45-117) 05/31/19 06:20 Total Protein 6.8 g/dl (6.4-8.2) 05/31/19 06:20 Albumin 3.5 g/dl (3.4-5.0) 05/31/19 06:20 CARDIAC ENZYMES Creatine Kinase 94 U/L (26-192) 05/28/19 19:52 Troponin I 0.03 ng/ml (0.00-0.05) 05/28/19 19:52 Current Medications Generic Name Dose Route Start Last Admin Trade Name Freq PRN Reason Stop Dose Admin Albuterol Sulfate 1 amp 05/29/19 03:34 Ventolin 0.083% Nebulizer Soln - NEB Q4H PRN SHORT OF BREATH/WHEEZING Albuterol/Ipratropium 1 amp 05/29/19 02:33 06/01/19 07:30 Duoneb - NEB 1 amp RQID [facility] Administration Amlodipine Besylate 10 mg 05/29/19 10:00 05/31/19 12:38 Norvasc - PO Not Given DAILY [facility] Aspirin 81 mg 05/29/19 10:00 05/31/19 11:29 Ecotrin - PO 81 mg DAILY [facility] Administration Atorvastatin Calcium 40 mg 05/29/19 22:00 05/31/19 22:01 Lipitor - PO 40 mg HS [facility] Administration Budesonide/Formoterol Fumarate 2 puff 05/29/19 12:15 05/31/19 22:01 Symbicort 160/4.5mcg - IH 2 puff BID [facility] Administration Doxazosin Mesylate 2 mg 05/29/19 07:00 06/01/19 07:12 Cardura - PO 2 mg AM [facility] Administration Doxazosin Mesylate 4 mg 05/29/19 22:00 05/31/19 22:01 Cardura - PO 4 mg HS [facility] Administration Furosemide 60 mg 05/29/19 10:00 05/31/19 11:26 Lasix Injection - IVPUSH 60 mg DAILY [facility] Administration Heparin Sodium (Porcine) 5,000 unit 05/29/19 14:00 06/01/19 07:08 Heparin - SQ Not Given TID [facility] Hydralazine HCl 25 mg/ 35 mg 05/29/19 07:00 06/01/19 07:12 Hydralazine HCl 10 mg PO 35 mg BID@0700,2200 [facility] Administration Ceftriaxone Sodium 1 gm/ 50 mls @ 100 mls/hr 05/30/19 10:00 05/31/19 11:28 Dextrose IVPB 100 mls/hr DAILY [facility] Administration Melatonin 5 mg 05/31/19 01:40 Melatonin PO ONCE PRN INSOMNIA Nebivolol 10 mg 05/29/19 10:00 05/31/19 12:33 Bystolic - PO Not Given DAILY [facility] Polyethylene Glycol 17 gm 05/31/19 12:20 Miralax (For Daily Use) - PO DAILY PRN CONSTIPATION Prednisone 40 mg 05/31/19 11:30 05/31/19 12:24 Deltasone - PO 40 mg DAILY [facility] Administration Home Medications Medication Instructions Recorded Amlodipine Besylate 10 mg PO DAILY 05/29/19 Aspirin [Ecotrin] 81 mg PO DAILY 05/29/19 Atorvastatin Ca [Lipitor] 40 mg PO HS 05/29/19 Calcium Carb, Citrate/Vit D3 1 tab PO DAILY 05/29/19 [Calcium + D3 ER Tablet] Doxazosin Mesylate 2 mg PO AM 05/29/19 Doxazosin Mesylate 4 mg PO HS 05/29/19 Furosemide [Lasix] 40 mg PO DAILY 05/29/19 Hydralazine HCl 35 mg PO AM 05/29/19 Hydralazine HCl 35 mg PO HS 05/29/19 Nebivolol HCl [Bystolic] 10 mg PO DAILY 05/29/19 Microbiology 05/29/19 15:30 Urine - Urine Jeffery Urine Culture - Final NO GROWTH OBTAINED ASSESSMENT AND PLAN: Patient is an 84yo female with PMhx of CHF, COPD, HTN , CAD, Alzheimer, renal cysts , s/p PCI, who presented with worsening SOB. She was found in acute resp failure. # ACute resp failure due to COPD exacerbation with CHF exacerbation. # Acute diastolic CHF exacerbation # Acute COPd exacerbation # MARCELL on CKD IV: likely prerenal azotemia due to CHF # HTN cont home meds # UTI: cont ceftriaxone . urine cx neg but Abx were given before cx was sent DVT px: SQ heparin Full code.
[2019-06-01 09:42] LABS: ALBUMIN 3.3 g/dl (3.4-5.0); BILIRUBIN,TOTAL 0.7 mg/dL (0.2-1); BLOOD UREA NITROGEN 81.7 mg/dL (7-18); CALCIUM 7.7 mg/dL (8.5-10.1); CREATININE 2.4 mg/dL (0.55-1.3); TOT PROT 6.3 g/dl (6.4-8.2)
[2019-06-01] MEDS ORDERED: DEXTROSE 5%-WATER - 50 ML IVPB ONE (09:53)
[2019-06-01] MEDS ORDERED: cefTRIAXone SODIUM 1 GM VIAL ONE (09:53)
[2019-06-01] MEDS: CEFTRIAXONE 1 GM in DEXTROSE 5%-WATER - 50 ML IVPB SCH (11:14)
[2019-06-01] MEDS: FUROSEMIDE 40 MG/4 ML INJECTABLE VIAL IVPUSH SCH (11:15)
[2019-06-01] MEDS: predniSONE 20 MG TABLET (UD) PO SCH (11:15)
[2019-06-01] MEDS: BUDESONIDE/FORMETEROL FUMARATE 160/4.5 mcg INHALER IH SCH ×2 (11:16→22:23)
[2019-06-01] MEDS: amLODIPine BESYLATE 10 MG TABLET (FP) PO SCH (11:16)
[2019-06-01] MEDS: ASPIRIN COATED 81 MG TABLET.EC PO SCH (11:16)
--- NOTE | 2019-06-01 14:07 | PN ---
Physical Exam: SUBJECTIVE: Patient seen and examined. No acute events overnight. Pt slept with NC 3L O2 throughout the night, maintaining sat >94%. She slept better with less anxiety than prior evenings. No chest pain or worsening of breathing. OBJECTIVE: Vital Signs Period Temp Pulse Resp BP Sys/Michelle Pulse Ox Last 24 Hr 97.8 F-99.3 F 90-91 18-22 163-167/64-77 93-95 GENERAL: The patient is awake, alert, and fully oriented, in no acute distress. HEAD: Normal with no signs of trauma. EYES: PERRL, extraocular movements intact, sclera anicteric, conjunctiva clear. No ptosis. ENT: Ears normal, nares patent, oropharynx clear without exudates, moist mucous membranes. NECK: Trachea midline, full range of motion, supple. LUNGS: Mild crackles at base. Mild wheezes throughout. Accessory muscle use. HEART: Tachycardic, S1, S2 without murmur, rub or gallop. + JVD ABDOMEN: Soft, nontender, nondistended, normoactive bowel sounds, no guarding, no rebound, no hepatosplenomegaly, no masses. EXTREMITIES: 2+ pulses, warm, well-perfused, no edema. NEUROLOGICAL: Cranial nerves II through XII grossly intact. Normal speech, gait not observed. PSYCH: Normal mood, normal affect. SKIN: Warm, dry, normal turgor, no rashes or lesions noted Laboratory Results - last 24 hr CBC, BMP 06/01/19 08:40 06/01/19 08:40 Active Medications Albuterol Sulfate (Ventolin 0.083% Nebulizer Soln -) 1 amp NEB Q4H PRN PRN Reason: SHORT OF BREATH/WHEEZING Albuterol/Ipratropium (Duoneb -) 1 amp NEB RQID [facility] Last Admin: 06/01/19 11:55 Dose: 1 amp Amlodipine Besylate (Norvasc -) 10 mg PO DAILY [facility] Last Admin: 06/01/19 11:16 Dose: 10 mg Aspirin (Ecotrin -) 81 mg PO DAILY [facility] Last Admin: 06/01/19 11:16 Dose: 81 mg Atorvastatin Calcium (Lipitor -) 40 mg PO HS [facility] Last Admin: 05/31/19 22:01 Dose: 40 mg Budesonide/Formoterol Fumarate (Symbicort 160/4.5mcg -) 2 puff IH BID [facility] Last Admin: 06/01/19 11:16 Dose: 2 puff Doxazosin Mesylate (Cardura -) 2 mg PO AM [facility] Last Admin: 06/01/19 07:12 Dose: 2 mg Doxazosin Mesylate (Cardura -) 4 mg PO HS [facility] Last Admin: 05/31/19 22:01 Dose: 4 mg Furosemide (Lasix Injection -) 60 mg IVPUSH DAILY [facility] Last Admin: 06/01/19 11:15 Dose: 60 mg Heparin Sodium (Porcine) (Heparin -) 5,000 unit SQ TID [facility] Last Admin: 06/01/19 07:08 Dose: Not Given Hydralazine HCl 25 mg/ (Hydralazine HCl 10 mg) 35 mg PO BID@0700,2200 [facility] Last Admin: 06/01/19 07:12 Dose: 35 mg Ceftriaxone Sodium 1 gm/ (Dextrose) 50 mls @ 100 mls/hr IVPB DAILY [facility] Last Admin: 06/01/19 11:14 Dose: 100 mls/hr Melatonin (Melatonin) 5 mg PO ONCE PRN PRN Reason: INSOMNIA Nebivolol (Bystolic -) 10 mg PO DAILY [facility] Last Admin: 05/31/19 12:33 Dose: Not Given Polyethylene Glycol (Miralax (For Daily Use) -) 17 gm PO DAILY PRN PRN Reason: CONSTIPATION Prednisone (Deltasone -) 40 mg PO DAILY [facility] Last Admin: 06/01/19 11:15 Dose: 40 mg ASSESSMENT/PLAN: Pt is an 84 year old female from [facility], with a PMH of diastolic heart failure, stage 3 renal failure (not on hemodialysis), MS (drug eluting stent several years ago), L carotid endarterectomy, alzheimers who presents to the ED with 2 days of worsening SOB. #Acute respiratory failure 2/2 COPD exacerbation with CHF exacerbation CXR: progressive bibasilar pulmonary and pleural findings Echo not tolerated BiPAP prn and HS if tolerated 40mg prednisone po daily Nebs prn and Symbicort 60mg IV furosemide daily, pulm and nephro on board Monitor electrolytes, daily weights, and I's & O's, optimize Mg and K #Hypertensive Urgency Resume home meds nebivolol 10mg qd, hydralazine 35g BID, cardura 2mg qd, amlodipine 10mg qd Frequent monitoring Per daughter, baseline BP 150-160 #MARCELL, likely prerenal azotemia Cr: 2.4, BUN: 81.7 (baseline Cr 1.8-2.1) Likely 2/2 to CHF exacerbation or steroid dependent Cont to monitor BMP Renal US: pt refused Nephro on board #Anxiety/agitation Ordered a sitter to be with pt throughout the day and monitor her on/off BiPAP Daughter or pt's home mission worker will stay with pt overnight If pt is excessively anxious and pulling BiPAP off, assess for resp failure. See if she saturates okay NC. Can give olanzapine if necessary #UTI Continue ceftriaxone (day 5) #FEN Hold fluids for now Sodium controlled diet #DVT ppx Heparin SQ #Dispo PT eval pending Code status : she has a living will which states " DNR/DNI" spoke to laverne Garcia over the phone who expressed she wanted her mom to be full code. Dayron at bedside agrees. Spoke to Bill, HCP, over phone ), and he agrees to full code. Visit type - Emergency Visit Emergency Visit: No - New Patient This patient is new to me today: No - Critical Care Critical Care patient: No ATTENDING PHYSICIAN STATEMENT I saw and evaluated the patient. I reviewed the resident's note and discussed the case with the resident. I agree with the resident's findings and plan as documented. SUBJECTIVE: OBJECTIVE: ASSESSMENT AND PLAN:
[2019-06-01] MEDS: NEBIVOLOL 10 MG TABLET (FP) PO SCH (15:19)
--- NOTE | 2019-06-01 15:57 | PN ---
Progress Note (short form) - Note Progress Note: PULMONARY States breathing better today. No chest pain or cough. Vital Signs Period Temp Pulse Resp BP Sys/Michelle Pulse Ox Last 24 Hr 97.8 F-99.3 F 90-91 18-22 159-167/61-77 93-95 Gen: less tachypneic at rest Heart: RRR Lung: basilar rales Abd: soft, nontender Ext: no edema CBC, BMP 06/01/19 08:40 06/01/19 08:40 Active Medications Albuterol Sulfate (Ventolin 0.083% Nebulizer Soln -) 1 amp NEB Q4H PRN PRN Reason: SHORT OF BREATH/WHEEZING Albuterol/Ipratropium (Duoneb -) 1 amp NEB RQID [facility] Last Admin: 06/01/19 11:55 Dose: 1 amp Amlodipine Besylate (Norvasc -) 10 mg PO DAILY [facility] Last Admin: 06/01/19 11:16 Dose: 10 mg Aspirin (Ecotrin -) 81 mg PO DAILY [facility] Last Admin: 06/01/19 11:16 Dose: 81 mg Atorvastatin Calcium (Lipitor -) 40 mg PO HS [facility] Last Admin: 05/31/19 22:01 Dose: 40 mg Budesonide/Formoterol Fumarate (Symbicort 160/4.5mcg -) 2 puff IH BID [facility] Last Admin: 06/01/19 11:16 Dose: 2 puff Doxazosin Mesylate (Cardura -) 2 mg PO AM [facility] Last Admin: 06/01/19 07:12 Dose: 2 mg Doxazosin Mesylate (Cardura -) 4 mg PO HS [facility] Last Admin: 05/31/19 22:01 Dose: 4 mg Furosemide (Lasix Injection -) 60 mg IVPUSH DAILY [facility] Last Admin: 06/01/19 11:15 Dose: 60 mg Heparin Sodium (Porcine) (Heparin -) 5,000 unit SQ TID [facility] Last Admin: 06/01/19 15:19 Dose: 5,000 unit Hydralazine HCl 25 mg/ (Hydralazine HCl 10 mg) 35 mg PO BID@0700,2200 [facility] Last Admin: 06/01/19 07:12 Dose: 35 mg Ceftriaxone Sodium 1 gm/ (Dextrose) 50 mls @ 100 mls/hr IVPB DAILY [facility] Last Admin: 06/01/19 11:14 Dose: 100 mls/hr Melatonin (Melatonin) 5 mg PO ONCE PRN PRN Reason: INSOMNIA Nebivolol (Bystolic -) 10 mg PO DAILY [facility] Last Admin: 06/01/19 15:19 Dose: 10 mg Polyethylene Glycol (Miralax (For Daily Use) -) 17 gm PO DAILY PRN PRN Reason: CONSTIPATION Prednisone (Deltasone -) 40 mg PO DAILY [facility] Last Admin: 06/01/19 11:15 Dose: 40 mg A/P Acute on Chronic Diastolic Heart Failure r/o Acute COPD Exacerbation Acute on Chronic Renal Failure UTI CAD HTN Dementia - continue lasix - monitor urine output, creatinine - daily weights - replete lytes - echocardiogram - monitor off steroids - inhaled bronchodilators - can likely d/c antibiotics - f/u cultures - DVT prophylaxis
--- NOTE | 2019-06-01 16:06 | PN ---
Progress Note (short form) - Note Progress Note: s: no cp sob palps dizzy Current Medications Generic Name Dose Route Start Last Admin Trade Name Freq PRN Reason Stop Dose Admin Albuterol Sulfate 1 amp 05/29/19 03:34 Ventolin 0.083% Nebulizer Soln - NEB Q4H PRN SHORT OF BREATH/WHEEZING Albuterol/Ipratropium 1 amp 05/29/19 02:33 06/01/19 11:55 Duoneb - NEB 1 amp RQID NAV[facility] Administration Amlodipine Besylate 10 mg 05/29/19 10:00 06/01/19 11:16 Norvasc - PO 10 mg DAILY [facility] Administration Aspirin 81 mg 05/29/19 10:00 06/01/19 11:16 Ecotrin - PO 81 mg DAILY [facility] Administration Atorvastatin Calcium 40 mg 05/29/19 22:00 05/31/19 22:01 Lipitor - PO 40 mg HS [facility] Administration Budesonide/Formoterol Fumarate 2 puff 05/29/19 12:15 06/01/19 11:16 Symbicort 160/4.5mcg - IH 2 puff BID [facility] Administration Doxazosin Mesylate 2 mg 05/29/19 07:00 06/01/19 07:12 Cardura - PO 2 mg AM [facility] Administration Doxazosin Mesylate 4 mg 05/29/19 22:00 05/31/19 22:01 Cardura - PO 4 mg HS [facility] Administration Furosemide 60 mg 05/29/19 10:00 06/01/19 11:15 Lasix Injection - IVPUSH 60 mg DAILY [facility] Administration Heparin Sodium (Porcine) 5,000 unit 05/29/19 14:00 06/01/19 15:19 Heparin - SQ 5,000 unit TID [facility] Administration Hydralazine HCl 25 mg/ 35 mg 05/29/19 07:00 06/01/19 07:12 Hydralazine HCl 10 mg PO 35 mg BID@0700,2200 [facility] Administration Ceftriaxone Sodium 1 gm/ 50 mls @ 100 mls/hr 05/30/19 10:00 06/01/19 11:14 Dextrose IVPB 100 mls/hr DAILY [facility] Administration Melatonin 5 mg 05/31/19 01:40 Melatonin PO ONCE PRN INSOMNIA Nebivolol 10 mg 05/29/19 10:00 06/01/19 15:19 Bystolic - PO 10 mg DAILY [facility] Administration Polyethylene Glycol 17 gm 05/31/19 12:20 Miralax (For Daily Use) - PO DAILY PRN CONSTIPATION Prednisone 40 mg 05/31/19 11:30 06/01/19 11:15 Deltasone - PO 40 mg DAILY [facility] Administration Vital Signs Period Temp Pulse Resp BP Sys/Michelle Pulse Ox Last 24 Hr 97.8 F-99.3 F 90-91 18-22 159-167/61-77 93-95 nad no jvd rrr s1s2 no mrg cta bl nl eff no jaundice diaphoresis awake, alert no le e/c/c Laboratory Last Values WBC 15.0 K/mm3 (4.0-10.0) H 06/01/19 08:40 RBC 2.71 M/mm3 (3.60-5.2) L 06/01/19 08:40 Hgb 8.1 GM/dL (10.7-15.3) L 06/01/19 08:40 Hct 23.9 % (32.4-45.2) L 06/01/19 08:40 MCV 88.1 fl (80-96) 06/01/19 08:40 MCH 29.8 pg (25.7-33.7) 06/01/19 08:40 MCHC 33.8 g/dl (32.0-36.0) 06/01/19 08:40 RDW 14.0 % (11.6-15.6) 06/01/19 08:40 Plt Count 192 K/MM3 (134-434) 06/01/19 08:40 MPV 10.6 fl (7.5-11.1) 06/01/19 08:40 Absolute Neuts (auto) 21.1 K/mm3 (1.5-8.0) H 05/31/19 06:20 Neutrophils % 89.8 % (42.8-82.8) H 05/31/19 06:20 Neutrophils % (Manual) 88.0 % (42.8-82.8) H 05/31/19 06:20 Band Neutrophils % 0.0 % 05/31/19 06:20 Lymphocytes % 3.3 % (8-40) L D 05/31/19 06:20 Lymphocytes % (Manual) 3.0 % (8-40) L D 05/31/19 06:20 Monocytes % 6.7 % (3.8-10.2) D 05/31/19 06:20 Monocytes % (Manual) 9 % (3.8-10.2) D 05/31/19 06:20 Eosinophils % 0.0 % (0-4.5) 05/31/19 06:20 Eosinophils % (Manual) 0.0 % (0-4.5) 05/31/19 06:20 Basophils % 0.2 % (0-2.0) 05/31/19 06:20 Basophils % (Manual) 0.0 % (0-2.0) 05/31/19 06:20 Myelocytes % (Man) 0 % (0-2) D 05/31/19 06:20 Promyelocytes % (Man) 0 % (0-2) 05/31/19 06:20 Blast Cells % (Manual) 0 % (0-0) 05/31/19 06:20 Nucleated RBC % 1 % (0-0) H 05/31/19 06:20 Metamyelocytes 0 % (0-2) 05/31/19 06:20 Hypochromia 0 05/31/19 06:20 Platelet Estimate Normal 05/31/19 06:20 Polychromasia 0 05/31/19 06:20 Poikilocytosis 2+ 05/31/19 06:20 Anisocytosis 0 05/31/19 06:20 Microcytosis 0 05/31/19 06:20 Macrocytosis 0 05/31/19 06:20 Ovalocytes 1+ 05/29/19 07:21 Acanthocytes (Spur) 2+ 05/31/19 06:20 Anticoagulation Therapy No Result Required. 05/29/19 04:10 Puncture Site Right radial 05/29/19 04:10 ABG pH 7.32 (7.35-7.45) L 05/29/19 04:10 ABG pCO2 at Pt Temp 39.9 mmHg (35-45) 05/29/19 04:10 ABG pO2 at Pt Temp 136 mmHg (80-105) H 05/29/19 04:10 ABG HCO3 19.9 mmol/L (22-27) L 05/29/19 04:10 ABG O2 Sat (Measured) 98.9 % (95-98) H 05/29/19 04:10 ABG O2 Content 10.0 % vol (15-22) L 05/29/19 04:10 ABG Base Excess -5.2 meq/l (-2-2) L 05/29/19 04:10 [place] Test No Result Required. 05/29/19 04:10 O2 Delivery Device N/c 05/29/19 04:10 Oxygen Flow Rate 4l 05/29/19 04:10 Vent Mode No Result Required. 05/29/19 04:10 Vent Rate No Result Required. 05/29/19 04:10 Mechanical Rate No Result Required. 05/29/19 04:10 Pressure Support Vent No Result Required. 05/29/19 04:10 Sodium 144 mmol/L (136-145) 06/01/19 08:40 Potassium 3.0 mmol/L (3.5-5.1) L 06/01/19 08:40 Chloride 109 mmol/L (98-107) H 06/01/19 08:40 Carbon Dioxide 25 mmol/L (21-32) 06/01/19 08:40 Anion Gap 10 MMOL/L (8-16) 06/01/19 08:40 BUN 81.7 mg/dL (7-18) H 06/01/19 08:40 Creatinine 2.4 mg/dL (0.55-1.3) H 06/01/19 08:40 Est GFR (CKD-EPI)AfAm 20.50 06/01/19 08:40 Est GFR (CKD-EPI)NonAf 17.69 06/01/19 08:40 POC Glucometer 190 UNITS (80-120) 05/30/19 05:56 Random Glucose 118 mg/dL (74-106) H 06/01/19 08:40 Calcium 7.7 mg/dL (8.5-10.1) L 06/01/19 08:40 Phosphorus 4.1 mg/dL (2.5-4.9) 05/30/19 07:50 Magnesium 2.4 mg/dL (1.8-2.4) 05/30/19 07:50 Iron 33 ug/dL (27-139) 05/29/19 07:21 TIBC 274 ug/dL (250-450) 05/29/19 07:21 Iron Saturation 12 % (15-55) L 05/29/19 07:21 Unsaturated IBC 241 ug/dL (118-369) 05/29/19 07:21 Ferritin 119.4 ng/ml (8-388) 05/29/19 06:00 Total Bilirubin 0.7 mg/dL (0.2-1) 06/01/19 08:40 AST 26 U/L (15-37) 06/01/19 08:40 ALT 34 U/L (13-61) 06/01/19 08:40 Alkaline Phosphatase 50 U/L (45-117) 06/01/19 08:40 Creatine Kinase 94 U/L (26-192) 05/28/19 19:52 Troponin I 0.03 ng/ml (0.00-0.05) 05/28/19 19:52 B-Natriuretic Peptide 17468.3 pg/ml (5-450) H 05/28/19 19:52 Total Protein 6.3 g/dl (6.4-8.2) L 06/01/19 08:40 Albumin 3.3 g/dl (3.4-5.0) L 06/01/19 08:40 Vitamin B12 583 pg/ml (193-986) 05/29/19 06:00 TSH 0.39 uIU/ml (0.358-3.74) 05/29/19 07:21 Urine Color Yellow 05/29/19 01:05 Urine Appearance Cloudy 05/29/19 01:05 Urine pH 5.0 (5.0-8.0) 05/29/19 01:05 Ur Specific [place] 1.010 (1.010-1.035) 05/29/19 01:05 Urine Protein 2+ (NEGATIVE) H 05/29/19 01:05 Urine Glucose (UA) Negative (NEGATIVE) 05/29/19 01:05 Urine Ketones Negative (NEGATIVE) 05/29/19 01:05 Urine Blood Negative (NEGATIVE) 05/29/19 01:05 Urine Nitrite Negative (NEGATIVE) 05/29/19 01:05 Urine Bilirubin Negative (NEGATIVE) 05/29/19 01:05 Urine Urobilinogen 0.2 mg/dL (0.2-1.0) 05/29/19 01:05 Ur Leukocyte Esterase 3+ (NEGATIVE) H 05/29/19 01:05 Urine WBC (Auto) 91 /hpf (0-5) 05/29/19 01:05 Urine RBC (Auto) 30-40 /hpf (0-4) 05/29/19 01:05 Urine Casts (Auto) 6 /lpf (0-8) 05/29/19 01:05 U Epithel Cells (Auto) 5.4 /HPF (0-5/HPF) 05/29/19 01:05 Urine Bacteria (Auto) 416.7 /hpf (NEGATIVE) 05/29/19 01:05 Urine Yeast (Auto) None seen (NEGATIVE) 05/29/19 01:05 Ur Random Creatinine 24.0 mg/dL (30-150) L 05/31/19 17:10 U Random Total Protein 28.9 mg/dl (0-11.9) H 05/31/19 17:10 Ur Random Sodium 84 MMOL/L (40-220) 05/31/19 17:10 Ur Random Urea Nitrogn 365 mg/dL (350-1000) 05/31/19 17:10 ecg: sr, nl intervals, no st changes, lat twis cxr: chf a/p: 84 f hx dementia, ckd, cea, diastolic chf, htn, hld, mi s/p remote pci, here with sob. sob, acute diastolic chf: -cont iv lasix 60 qd. daily wts and chem7 ckd: -cr near baseline htn: -cont home meds hld: -cont statin cad, s/p mi and remote pci: -no signs acs -cont statin, asa, bb, nitrate
[2019-06-01] MEDS ORDERED: POTASSIUM CHLORIDE TABS 20 MEQ TABLET.ER (FP) PO ONE (17:38)
--- NOTE | 2019-06-01 17:43 | PN ---
Progress Note (short form) - Note Progress Note: Renal follow up for MARCELL on CKD Pt seen and examined at the bedside awake and alert no acute complaints making urine sob improving Vital Signs Temperature 97.9 F 06/01/19 17:22 Pulse Rate 84 06/01/19 17:22 Respiratory Rate 20 06/01/19 17:22 Blood Pressure 162/59 L 06/01/19 17:22 O2 Sat by Pulse Oximetry (%) 93 L 06/01/19 11:55 Intake & Output 05/29/19 05/30/19 05/31/19 06/01/19 23:59 23:59 23:59 23:59 Intake Total 50 561 57 2887 Output Total 1200 1600 1100 1300 Balance -1150 -1400 -1050 -200 Weight 52.617 kg 53.342 kg 55.338 kg 54.204 kg NAD on NC O2 RRR Dec BS, no rales or wheeze soft NT/ND no LE edema CBC, BMP 06/01/19 08:40 06/01/19 08:40 Current Medications Albuterol Sulfate (Ventolin 0.083% Nebulizer Soln -) 1 amp NEB Q4H PRN PRN Reason: SHORT OF BREATH/WHEEZING Albuterol/Ipratropium (Duoneb -) 1 amp NEB RQID [facility] Last Admin: 06/01/19 15:15 Dose: 1 amp Amlodipine Besylate (Norvasc -) 10 mg PO DAILY [facility] Last Admin: 06/01/19 11:16 Dose: 10 mg Aspirin (Ecotrin -) 81 mg PO DAILY [facility] Last Admin: 06/01/19 11:16 Dose: 81 mg Atorvastatin Calcium (Lipitor -) 40 mg PO HS [facility] Last Admin: 05/31/19 22:01 Dose: 40 mg Budesonide/Formoterol Fumarate (Symbicort 160/4.5mcg -) 2 puff IH BID [facility] Last Admin: 06/01/19 11:16 Dose: 2 puff Doxazosin Mesylate (Cardura -) 2 mg PO AM [facility] Last Admin: 06/01/19 07:12 Dose: 2 mg Doxazosin Mesylate (Cardura -) 4 mg PO HS [facility] Last Admin: 05/31/19 22:01 Dose: 4 mg Furosemide (Lasix Injection -) 60 mg IVPUSH DAILY [facility] Last Admin: 06/01/19 11:15 Dose: 60 mg Heparin Sodium (Porcine) (Heparin -) 5,000 unit SQ TID [facility] Last Admin: 06/01/19 15:19 Dose: 5,000 unit Hydralazine HCl 25 mg/ (Hydralazine HCl 10 mg) 35 mg PO BID@0700,2200 [facility] Last Admin: 06/01/19 07:12 Dose: 35 mg Ceftriaxone Sodium 1 gm/ (Dextrose) 50 mls @ 100 mls/hr IVPB DAILY [facility] Last Admin: 06/01/19 11:14 Dose: 100 mls/hr Melatonin (Melatonin) 5 mg PO ONCE PRN PRN Reason: INSOMNIA Nebivolol (Bystolic -) 10 mg PO DAILY [facility] Last Admin: 06/01/19 15:19 Dose: 10 mg Polyethylene Glycol (Miralax (For Daily Use) -) 17 gm PO DAILY PRN PRN Reason: CONSTIPATION Potassium Chloride (K-Dur -) 40 meq PO ONCE ONE Stop: 06/01/19 17:39 Prednisone (Deltasone -) 40 mg PO DAILY [facility] Last Admin: 06/01/19 11:15 Dose: 40 mg 84 year old female past medical history of Congestive heart failure, CKD 3-4, Coronary artery disease, [place], s/p PTIC, stenting, PVD< Left carotid endarterectomy, Alzheimers who presented to the hospital with worsening shortmess of breath. #MARCELL on CKD #CKD (baseline Cr 1.9 as of 11/2018, follow with Dr. David Diaz) #Renal cystic disease/complex cyst #Diastolic HF/Acute CHF #CAD #Proteinuria Renal function improving continue Lasix IV as per cardiology supplement K No overt electrolyte or acid base disturbance to warrant SHOE STITCHER ODD given advanced age and co-morbid conditions pt would nto be a good candidate for dialysis no ROLDAN/ARB given MARCELL and low eGFR BUN is high but also due in part to steroids no signs of of uremia continue steroid taper as per pulmonary continue empiric antibiotics as per primary team Check CT of the Abd/Pelvis when respirator status is stable for better characterize renal cysts (noted to be complex on US done earlier this year) follows with urology regarding cysts Thank you Prateek Chavez DO
[2019-06-01] MEDS: ATORVASTATIN CA 40 MG TABLET (FP) PO SCH (22:22)
[2019-06-01] MEDS: DOXAZOSIN MESYLATE 4 MG TABLET PO SCH (22:23)
[2019-06-02] MEDS ORDERED: hydrALAZINE HCL 25 MG TABLET (FP) ONE (06:01)
[2019-06-02] MEDS ORDERED: hydrALAZINE HCL 10 MG TABLET ONE (06:01)
[2019-06-02] MEDS: hydrALAZINE HCL 25 MG, hydrALAZINE HCL 10 MG PO SCH (06:46)
[2019-06-02] MEDS: DOXAZOSIN MESYLATE 2 MG TABLET (FP) PO SCH (06:46)
[2019-06-02] MEDS: HEPARIN NA (PORCINE) 5,000 UNITS/ML 1ML VIAL SQ SCH ×3 (06:47→21:01)
[2019-06-02] MEDS: ALBUTEROL SO4 2.5/IPRATROPIUM 0.5 INH SOL 3 ML VIAL.NEB. NEB SCH ×4 (07:30→20:20)
[2019-06-02] MEDS ORDERED: cefTRIAXone SODIUM 1 GM VIAL ONE (09:41)
[2019-06-02] MEDS ORDERED: DEXTROSE 5%-WATER - 50 ML IVPB ONE (09:41)
--- NOTE | 2019-06-02 09:47 | PN ---
Physical Exam: SUBJECTIVE: Patient seen and examined. No acute events overnight. Pt slept on and off with NC 4L O2 throughout the night, maintaining sat >93%. She slept better with less anxiety than prior evenings. No chest pain or worsening of breathing. Cough with clear sputum. OBJECTIVE: Vital Signs Period Temp Pulse Resp BP Sys/Michelle Pulse Ox Last 24 Hr 97.9 F-98.4 F 80-84 18-22 159-183/59-77 93-93 GENERAL: The patient is awake, alert, and fully oriented, in no acute distress. HEAD: Normal with no signs of trauma. EYES: PERRL, extraocular movements intact, sclera anicteric, conjunctiva clear. No ptosis. ENT: Ears normal, nares patent, oropharynx clear without exudates, moist mucous membranes. NECK: Trachea midline, full range of motion, supple. LUNGS: Improved breathing. Mild crackles at base. Mild wheezes throughout. Accessory muscle use. Sat at 83% on RA, 93% on 5L NC O2. HEART: Tachycardic, S1, S2 without murmur, rub or gallop. + JVD ABDOMEN: Soft, nontender, nondistended, normoactive bowel sounds, no guarding, no rebound, no hepatosplenomegaly, no masses. EXTREMITIES: 2+ pulses, warm, well-perfused, no edema. Pt appears euvolemic. NEUROLOGICAL: Cranial nerves II through XII grossly intact. Normal speech, gait not observed. PSYCH: Normal mood, normal affect. SKIN: Warm, dry, normal turgor, no rashes or lesions noted Laboratory Results - last 24 hr 06/01/19 06/01/19 08:40 08:40 WBC 15.0 H RBC 2.71 L Hgb 8.1 L Hct 23.9 L MCV 88.1 MCH 29.8 MCHC 33.8 RDW 14.0 Plt Count 192 MPV 10.6 Sodium 144 Potassium 3.0 L Chloride 109 H Carbon Dioxide 25 Anion Gap 10 BUN 81.7 H Creatinine 2.4 H Est GFR (CKD-EPI)AfAm 20.50 Est GFR (CKD-EPI)NonAf 17.69 Random Glucose 118 H Calcium 7.7 L Total Bilirubin 0.7 AST 26 ALT 34 Alkaline Phosphatase 50 Total Protein 6.3 L Albumin 3.3 L Active Medications Albuterol Sulfate (Ventolin 0.083% Nebulizer Soln -) 1 amp NEB Q4H PRN PRN Reason: SHORT OF BREATH/WHEEZING Albuterol/Ipratropium (Duoneb -) 1 amp NEB RQID [facility] Last Admin: 06/02/19 07:30 Dose: Not Given Amlodipine Besylate (Norvasc -) 10 mg PO DAILY [facility] Last Admin: 06/01/19 11:16 Dose: 10 mg Aspirin (Ecotrin -) 81 mg PO DAILY [facility] Last Admin: 06/01/19 11:16 Dose: 81 mg Atorvastatin Calcium (Lipitor -) 40 mg PO HS [facility] Last Admin: 06/01/19 22:22 Dose: 40 mg Budesonide/Formoterol Fumarate (Symbicort 160/4.5mcg -) 2 puff IH BID [facility] Last Admin: 06/01/19 22:23 Dose: 2 puff Doxazosin Mesylate (Cardura -) 2 mg PO AM [facility] Last Admin: 06/02/19 06:46 Dose: Not Given Doxazosin Mesylate (Cardura -) 4 mg PO HS [facility] Last Admin: 06/01/19 22:23 Dose: 4 mg Furosemide (Lasix Injection -) 60 mg IVPUSH DAILY [facility] Last Admin: 06/01/19 11:15 Dose: 60 mg Heparin Sodium (Porcine) (Heparin -) 5,000 unit SQ TID [facility] Last Admin: 06/02/19 06:47 Dose: Not Given Hydralazine HCl 25 mg/ (Hydralazine HCl 10 mg) 35 mg PO BID@0700,2200 [facility] Last Admin: 06/02/19 06:46 Dose: Not Given Ceftriaxone Sodium 1 gm/ (Dextrose) 50 mls @ 100 mls/hr IVPB DAILY [facility] Last Admin: 06/01/19 11:14 Dose: 100 mls/hr Melatonin (Melatonin) 5 mg PO ONCE PRN PRN Reason: INSOMNIA Nebivolol (Bystolic -) 10 mg PO DAILY [facility] Last Admin: 06/01/19 15:19 Dose: 10 mg Polyethylene Glycol (Miralax (For Daily Use) -) 17 gm PO DAILY PRN PRN Reason: CONSTIPATION ASSESSMENT/PLAN: Pt is an 84 year old female from [facility], with a PMH of diastolic heart failure, stage 3 renal failure (not on hemodialysis), [place] (drug eluting stent several years ago), L carotid endarterectomy, alzheimers who presents to the ED with 2 days of worsening SOB. #Acute respiratory failure 2/2 COPD exacerbation with CHF exacerbation CXR: progressive bibasilar pulmonary and pleural findings, repeat in am Echo not tolerated D/c steroids as per pulm (Dr. Everett) and monitor Nebs prn and Symbicort 60mg IV furosemide daily, pulm and nephro on board Monitor electrolytes, daily weights, and I's & O's, optimize Mg and K Pre/post respiratory test ordered Incentive spirometer QID #Hypertensive Urgency Resume home meds nebivolol 10mg qd, hydralazine 35g BID, cardura 2mg qd, amlodipine 10mg qd Frequent monitoring Per daughter, baseline BP 150-160 #MARCELL, likely prerenal azotemia Cr: 1.9, BUN: 63 (baseline Cr 1.8-2.1) Likely 2/2 to CHF exacerbation or steroid dependent Cont to monitor BMP, holding fluids for now Renal US: pt refused Nephro on board #Anxiety/agitation Ordered a sitter to be with pt throughout the day and monitor her on/off BiPAP Daughter or pt's area director of home health sales will stay with pt overnight If pt is excessively anxious and pulling BiPAP off, assess for resp failure. See if she saturates okay NC. Can give olanzapine if necessary #UTI Can d/c abx per nephro #FEN Hold fluids for now Sodium controlled diet #DVT ppx Heparin SQ #Dispo PT eval pending D/c pt with O2 Code status : she has a living will which states " DNR/DNI" spoke to laverne Garcia over the phone who expressed she wanted her mom to be full code. Dayron at bedside agrees. Spoke to Bill, HCP, over phone ), and he agrees to full code. Visit type - Emergency Visit Emergency Visit: No - New Patient This patient is new to me today: No - Critical Care Critical Care patient: No - Discharge Referral Referred to [facility] No ATTENDING PHYSICIAN STATEMENT I saw and evaluated the patient. I reviewed the resident's note and discussed the case with the resident. I agree with the resident's findings and plan as documented. SUBJECTIVE: OBJECTIVE: ASSESSMENT AND PLAN:
[2019-06-02 10:47] LABS: HEMOGLOBIN 8.3 GM/dL (10.7-15.3); MCH 29.7 pg (25.7-33.7); MCHC 33.3 g/dl (32.0-36.0); MEAN CELL VOLUME 89.2 fl (80-96); MEAN PLT VOLUME 10.9 fl (7.5-11.1); PLATELET COUNT 213 K/MM3 (134-434); RDW 13.9 % (11.6-15.6); WHITE BLOOD COUNT 14.5 K/mm3 (4.0-10.0)
[2019-06-02] MEDS: FUROSEMIDE 40 MG/4 ML INJECTABLE VIAL IVPUSH SCH (10:58)
[2019-06-02] MEDS: NEBIVOLOL 10 MG TABLET (FP) PO SCH (10:59)
[2019-06-02] MEDS: amLODIPine BESYLATE 10 MG TABLET (FP) PO SCH (10:59)
[2019-06-02] MEDS: ASPIRIN COATED 81 MG TABLET.EC PO SCH (10:59)
[2019-06-02] MEDS: BUDESONIDE/FORMETEROL FUMARATE 160/4.5 mcg INHALER IH SCH ×2 (11:11→21:00)
[2019-06-02 11:21] LABS: ALBUMIN 3.3 g/dl (3.4-5.0); BILIRUBIN,TOTAL 0.8 mg/dL (0.2-1); BLOOD UREA NITROGEN 63.5 mg/dL (7-18); CALCIUM 7.4 mg/dL (8.5-10.1); CREATININE 1.9 mg/dL (0.55-1.3); POTASSIUM 3.5 mmol/L (3.5-5.1); TOT PROT 6.2 g/dl (6.4-8.2)
--- NOTE | 2019-06-02 13:35 | PN ---
Progress Note (short form) - Note Progress Note: PULMONARY Breathing continues to improve. +cough with clear sputum. Vital Signs Period Temp Pulse Resp BP Sys/Michelle Pulse Ox Last 24 Hr 97.9 F-98.4 F 84-84 20-22 159-162/59-69 92-93 Gen: less tachypneic at rest Heart: RRR Lung: basilar rales Abd: soft, nontender Ext: no edema CBC, BMP 06/02/19 10:20 06/02/19 10:20 Active Medications Albuterol Sulfate (Ventolin 0.083% Nebulizer Soln -) 1 amp NEB Q4H PRN PRN Reason: SHORT OF BREATH/WHEEZING Albuterol/Ipratropium (Duoneb -) 1 amp NEB RQID [facility] Last Admin: 06/02/19 11:30 Dose: 1 amp Amlodipine Besylate (Norvasc -) 10 mg PO DAILY [facility] Last Admin: 06/02/19 10:59 Dose: 10 mg Aspirin (Ecotrin -) 81 mg PO DAILY [facility] Last Admin: 06/02/19 10:59 Dose: 81 mg Atorvastatin Calcium (Lipitor -) 40 mg PO HS [facility] Last Admin: 06/01/19 22:22 Dose: 40 mg Budesonide/Formoterol Fumarate (Symbicort 160/4.5mcg -) 2 puff IH BID [facility] Last Admin: 06/02/19 11:11 Dose: 2 puff Doxazosin Mesylate (Cardura -) 2 mg PO AM [facility] Last Admin: 06/02/19 06:46 Dose: Not Given Doxazosin Mesylate (Cardura -) 4 mg PO HS [facility] Last Admin: 06/01/19 22:23 Dose: 4 mg Furosemide (Lasix Injection -) 60 mg IVPUSH DAILY [facility] Last Admin: 06/02/19 10:58 Dose: 60 mg Heparin Sodium (Porcine) (Heparin -) 5,000 unit SQ TID [facility] Last Admin: 06/02/19 06:47 Dose: Not Given Hydralazine HCl 25 mg/ (Hydralazine HCl 10 mg) 35 mg PO BID@0700,2200 [facility] Last Admin: 06/02/19 06:46 Dose: Not Given Melatonin (Melatonin) 5 mg PO ONCE PRN PRN Reason: INSOMNIA Nebivolol (Bystolic -) 10 mg PO DAILY [facility] Last Admin: 06/02/19 10:59 Dose: 10 mg Polyethylene Glycol (Miralax (For Daily Use) -) 17 gm PO DAILY PRN PRN Reason: CONSTIPATION A/P Acute on Chronic Diastolic Heart Failure r/o Acute COPD Exacerbation Acute on Chronic Renal Failure UTI CAD HTN Dementia - continue lasix - monitor urine output, creatinine - daily weights - repeat CXR in AM - echocardiogram - monitor off steroids - inhaled bronchodilators - s/p antibiotics - DVT prophylaxis
--- NOTE | 2019-06-02 15:33 | PN ---
Progress Note (short form) - Note Progress Note: s: no cp sob palps dizzy Current Medications Albuterol Sulfate (Ventolin 0.083% Nebulizer Soln -) 1 amp NEB Q4H PRN PRN Reason: SHORT OF BREATH/WHEEZING Albuterol/Ipratropium (Duoneb -) 1 amp NEB RQID [facility] Last Admin: 06/02/19 11:30 Dose: 1 amp Amlodipine Besylate (Norvasc -) 10 mg PO DAILY [facility] Last Admin: 06/02/19 10:59 Dose: 10 mg Aspirin (Ecotrin -) 81 mg PO DAILY [facility] Last Admin: 06/02/19 10:59 Dose: 81 mg Atorvastatin Calcium (Lipitor -) 40 mg PO HS [facility] Last Admin: 06/01/19 22:22 Dose: 40 mg Budesonide/Formoterol Fumarate (Symbicort 160/4.5mcg -) 2 puff IH BID [facility] Last Admin: 06/02/19 11:11 Dose: 2 puff Doxazosin Mesylate (Cardura -) 2 mg PO AM [facility] Last Admin: 06/02/19 06:46 Dose: Not Given Doxazosin Mesylate (Cardura -) 4 mg PO HS [facility] Last Admin: 06/01/19 22:23 Dose: 4 mg Furosemide (Lasix Injection -) 60 mg IVPUSH DAILY [facility] Last Admin: 06/02/19 10:58 Dose: 60 mg Heparin Sodium (Porcine) (Heparin -) 5,000 unit SQ TID [facility] Last Admin: 06/02/19 06:47 Dose: Not Given Hydralazine HCl 25 mg/ (Hydralazine HCl 10 mg) 35 mg PO BID@0700,2200 [facility] Last Admin: 06/02/19 06:46 Dose: Not Given Melatonin (Melatonin) 5 mg PO ONCE PRN PRN Reason: INSOMNIA Nebivolol (Bystolic -) 10 mg PO DAILY [facility] Last Admin: 06/02/19 10:59 Dose: 10 mg Polyethylene Glycol (Miralax (For Daily Use) -) 17 gm PO DAILY PRN PRN Reason: CONSTIPATION Vital Signs Period Temp Pulse Resp BP Sys/Michelle Pulse Ox Last 24 Hr 97.9 F-98.4 F 63-84 20-22 159-162/59-69 92-93 nad no jvd rrr s1s2 no mrg cta bl nl eff, eva rales at bases no jaundice diaphoresis awake, alert no le e/c/c ecg: sr, nl intervals, no st changes, lat twis cxr: chf a/p: 84 f hx dementia, ckd, cea, diastolic chf, htn, hld, mi s/p remote pci, here with sob. sob, acute diastolic chf: -cont iv lasix 60 qd, Cr improving per daughter she is breathing more comfortably - daily wts and chem7 ckd: -cr near baseline htn: -cont home meds hld: -cont statin cad, s/p mi and remote pci: -no signs acs -cont statin, asa, bb, nitrate
--- NOTE | 2019-06-02 17:11 | PN ---
Progress Note (short form) - Note Progress Note: Renal follow up for MARCELL on CKD Pt seen and examined at the bedside awake and alert no acute complaints sob is improving no chest pain, abd pain, N/V making urine Vital Signs Temperature 98.0 F 06/02/19 14:32 Pulse Rate 86 06/02/19 15:30 Respiratory Rate 20 06/02/19 14:32 Blood Pressure 159/59 L 06/02/19 14:32 O2 Sat by Pulse Oximetry (%) 91 L 06/02/19 15:30 Intake & Output 05/30/19 05/31/19 06/01/19 06/02/19 23:59 23:59 23:59 23:59 Intake Total 027 42 3472 480 Output Total 1600 1100 2100 1100 Balance -1400 -1050 -320 -620 Weight 53.342 kg 55.338 kg 54.204 kg 56.835 kg NAD on NC O2 RRR Dec BS, no rales or wheeze soft NT/ND no LE edema CBC, BMP 06/02/19 10:20 06/02/19 10:20 Microbiology 05/29/19 15:30 Urine - Urine Jeffery Urine Culture - Final NO GROWTH OBTAINED Laboratory Tests 06/02/19 10:20 Calcium 7.4 L Albumin 3.3 L Current Medications Albuterol Sulfate (Ventolin 0.083% Nebulizer Soln -) 1 amp NEB Q4H PRN PRN Reason: SHORT OF BREATH/WHEEZING Albuterol/Ipratropium (Duoneb -) 1 amp NEB RQID [facility] Last Admin: 06/02/19 15:30 Dose: 1 amp Amlodipine Besylate (Norvasc -) 10 mg PO DAILY [facility] Last Admin: 06/02/19 10:59 Dose: 10 mg Aspirin (Ecotrin -) 81 mg PO DAILY [facility] Last Admin: 06/02/19 10:59 Dose: 81 mg Atorvastatin Calcium (Lipitor -) 40 mg PO HS [facility] Last Admin: 06/01/19 22:22 Dose: 40 mg Budesonide/Formoterol Fumarate (Symbicort 160/4.5mcg -) 2 puff IH BID [facility] Last Admin: 06/02/19 11:11 Dose: 2 puff Doxazosin Mesylate (Cardura -) 2 mg PO AM [facility] Last Admin: 06/02/19 06:46 Dose: Not Given Doxazosin Mesylate (Cardura -) 4 mg PO HS [facility] Last Admin: 06/01/19 22:23 Dose: 4 mg Furosemide (Lasix Injection -) 60 mg IVPUSH DAILY [facility] Last Admin: 06/02/19 10:58 Dose: 60 mg Heparin Sodium (Porcine) (Heparin -) 5,000 unit SQ TID [facility] Last Admin: 06/02/19 06:47 Dose: Not Given Hydralazine HCl 25 mg/ (Hydralazine HCl 10 mg) 35 mg PO BID@0700,2200 [facility] Last Admin: 06/02/19 06:46 Dose: Not Given Melatonin (Melatonin) 5 mg PO ONCE PRN PRN Reason: INSOMNIA Nebivolol (Bystolic -) 10 mg PO DAILY [facility] Last Admin: 06/02/19 10:59 Dose: 10 mg Polyethylene Glycol (Miralax (For Daily Use) -) 17 gm PO DAILY PRN PRN Reason: CONSTIPATION 84 year old female past medical history of Congestive heart failure, CKD 3-4, Coronary artery disease, [place], s/p PTIC, stenting, PVD< Left carotid endarterectomy, Alzheimers who presented to the hospital with worsening shortmess of breath. 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 David Diaz) #Renal cystic disease/complex cyst #Diastolic HF/Acute CHF #CAD #Proteinuria Renal function now improved to near baseline Continue diuretics as per cardiology currently holding ROLDAN/ARB given MARCELL, can resume when pt is on stable dose of oral diuretics continue steroid taper as per pulmonary continue empiric antibiotics as per primary team Check CT of the Abd/Pelvis when respirator status is stable for better characterize renal cysts (noted to be complex on US done earlier this year) follows with urology regarding cysts Thank you Prateek Chavez DO
--- NOTE | 2019-06-02 20:27 | PN ---
Teaching Attending Note Name of Resident: Petrona Spencer ATTENDING PHYSICIAN STATEMENT I saw and evaluated the patient. I reviewed the resident's note and discussed the case with the resident. I agree with the resident's findings and plan as documented. SUBJECTIVE: Patient is feeling better with no acute distress. breathing better, saturating 91% on 3liter oxygen. OBJECTIVE: Vital Signs Temperature 98.4 F 06/02/19 20:22 Pulse Rate 66 06/02/19 20:22 Respiratory Rate 20 06/02/19 20:22 Blood Pressure 184/70 H 06/02/19 20:22 O2 Sat by Pulse Oximetry (%) 91 L 06/02/19 15:30 GENERAL: The patient is awake, alert, and fully oriented, in no acute distress. HEAD: Normal with no signs of trauma. EYES: PERRL, extraocular movements intact, sclera anicteric, conjunctiva clear. ENT: Ears normal, oropharynx clear without exudates, moist mucous membranes. NECK: Trachea midline, full range of motion, supple. LUNGS: decreased BS BL , no accessory muscle use. HEART: Regular rate and rhythm, S1, S2 positive, S1s2 positive, JOSSY 2/6 , no rub or gallop. ABDOMEN: Soft, nontender, nondistended, normoactive bowel sounds, no guarding, no rebound, no hepatosplenomegaly, no masses. EXTREMITIES: 2+ pulses, warm, well-perfused, no edema. NEUROLOGICAL: Cranial nerves II through XII grossly intact. Normal speech, gait not observed. PSYCH: Normal mood, normal affect. SKIN: Warm, dry, normal turgor, no rashes or lesions noted WBC 14.5 K/mm3 (4.0-10.0) H 06/02/19 10:20 RBC 2.80 M/mm3 (3.60-5.2) L 06/02/19 10:20 Hgb 8.3 GM/dL (10.7-15.3) L 06/02/19 10:20 Hct 25.0 % (32.4-45.2) L 06/02/19 10:20 MCV 89.2 fl (80-96) 06/02/19 10:20 MCHC 33.3 g/dl (32.0-36.0) 06/02/19 10:20 RDW 13.9 % (11.6-15.6) 06/02/19 10:20 Plt Count 213 K/MM3 (134-434) 06/02/19 10:20 MPV 10.9 fl (7.5-11.1) 06/02/19 10:20 CMP Sodium 145 mmol/L (136-145) 06/02/19 10:20 Potassium 3.5 mmol/L (3.5-5.1) 06/02/19 10:20 Chloride 109 mmol/L (98-107) H 06/02/19 10:20 Carbon Dioxide 29 mmol/L (21-32) 06/02/19 10:20 Anion Gap 6 MMOL/L (8-16) L 06/02/19 10:20 BUN 63.5 mg/dL (7-18) H 06/02/19 10:20 Creatinine 1.9 mg/dL (0.55-1.3) H 06/02/19 10:20 Random Glucose 96 mg/dL (74-106) 06/02/19 10:20 Calcium 7.4 mg/dL (8.5-10.1) L 06/02/19 10:20 Total Bilirubin 0.8 mg/dL (0.2-1) 06/02/19 10:20 AST 28 U/L (15-37) 06/02/19 10:20 ALT 38 U/L (13-61) 06/02/19 10:20 Alkaline Phosphatase 48 U/L (45-117) 06/02/19 10:20 Total Protein 6.2 g/dl (6.4-8.2) L 06/02/19 10:20 Albumin 3.3 g/dl (3.4-5.0) L 06/02/19 10:20 CARDIAC ENZYMES Creatine Kinase 94 U/L (26-192) 05/28/19 19:52 Troponin I 0.03 ng/ml (0.00-0.05) 05/28/19 19:52 Current Medications Generic Name Dose Route Start Last Admin Trade Name Freq PRN Reason Stop Dose Admin Albuterol Sulfate 1 amp 05/29/19 03:34 Ventolin 0.083% Nebulizer Soln - NEB Q4H PRN SHORT OF BREATH/WHEEZING Albuterol/Ipratropium 1 amp 05/29/19 02:33 06/02/19 15:30 Duoneb - NEB 1 amp RQID [facility] Administration Amlodipine Besylate 10 mg 05/29/19 10:00 06/02/19 10:59 Norvasc - PO 10 mg DAILY [facility] Administration Aspirin 81 mg 05/29/19 10:00 06/02/19 10:59 Ecotrin - PO 81 mg DAILY [facility] Administration Atorvastatin Calcium 40 mg 05/29/19 22:00 06/01/19 22:22 Lipitor - PO 40 mg HS [facility] Administration Budesonide/Formoterol Fumarate 2 puff 05/29/19 12:15 06/02/19 11:11 Symbicort 160/4.5mcg - IH 2 puff BID [facility] Administration Doxazosin Mesylate 2 mg 05/29/19 07:00 06/02/19 06:46 Cardura - PO Not Given AM [facility] Doxazosin Mesylate 4 mg 05/29/19 22:00 06/01/19 22:23 Cardura - PO 4 mg HS [facility] Administration Furosemide 60 mg 05/29/19 10:00 06/02/19 10:58 Lasix Injection - IVPUSH 60 mg DAILY [facility] Administration Heparin Sodium (Porcine) 5,000 unit 05/29/19 14:00 06/02/19 17:53 Heparin - SQ Not Given TID [facility] Hydralazine HCl 25 mg/ 35mg 05/29/19 07:00 06/02/19 06:46 Hydralazine HCl 10 mg PO Not Given BID@0700,2200 [facility] changed to 50mg Melatonin 5 mg 05/31/19 01:40 Melatonin PO ONCE PRN INSOMNIA Nebivolol 10 mg 05/29/19 10:00 06/02/19 10:59 Bystolic - PO 10 mg DAILY [facility] Administration Polyethylene Glycol 17 gm 05/31/19 12:20 Miralax (For Daily Use) - PO DAILY PRN CONSTIPATION Home Medications Medication Instructions Recorded Amlodipine Besylate 10 mg PO DAILY 05/29/19 Aspirin [Ecotrin] 81 mg PO DAILY 05/29/19 Atorvastatin Ca [Lipitor] 40 mg PO HS 05/29/19 Calcium Carb, Citrate/Vit D3 1 tab PO DAILY 05/29/19 [Calcium + D3 ER Tablet] Doxazosin Mesylate 2 mg PO AM 05/29/19 Doxazosin Mesylate 4 mg PO HS 05/29/19 Furosemide [Lasix] 40 mg PO DAILY 05/29/19 Hydralazine HCl 35 mg PO AM 05/29/19 Hydralazine HCl 35 mg PO HS 05/29/19 Nebivolol HCl [Bystolic] 10 mg PO DAILY 05/29/19 05/29/19 15:30 Urine - Urine Jeffery Urine Culture - Final NO GROWTH OBTAINED ASSESSMENT AND PLAN: Patient is an 84yo female with PMhx of CHF, COPD, HTN , CAD, Alzheimer, renal cysts , s/p PCI, who presented with worsening SOB. She was found in acute resp failure. # HTN Uncontrolled: increased the dose of hydralazine from 35mg to 50mg tid , will continue to monitor # Acute resp failure due to COPD exacerbation with CHF exacerbation. improving but saturation on 3 liter is 91%, might need oxygen will do pre and post # Acute diastolic CHF exacerbation: on IV lasix continue # Acute COPd exacerbation: # MARCELL on CKD IV: likely prerenal azotemia due to CHF # UTI: cont ceftriaxone . urine cx neg but Abx were given before cx was sent DVT px: SQ heparin Full code. possible dc back to independent living if medically stable
[2019-06-02] MEDS ORDERED: PT OWN MED DRAWER 7, Y5N ONE (20:41)
[2019-06-02] MEDS: ATORVASTATIN CA 40 MG TABLET (FP) PO SCH (21:00)
[2019-06-02] MEDS: DOXAZOSIN MESYLATE 4 MG TABLET PO SCH (21:00)
[2019-06-02] MEDS: hydrALAZINE HCL 25 MG TABLET (FP) PO SCH (21:00)
[2019-06-03] MEDS: HEPARIN NA (PORCINE) 5,000 UNITS/ML 1ML VIAL SQ SCH ×3 (06:26→21:55)
[2019-06-03] MEDS: DOXAZOSIN MESYLATE 2 MG TABLET (FP) PO SCH (06:32)
[2019-06-03] MEDS: hydrALAZINE HCL 25 MG TABLET (FP) PO SCH ×2 (06:32→21:53)
[2019-06-03 07:42] LABS: BILIRUBIN,TOTAL 0.8 mg/dL (0.2-1); BLOOD UREA NITROGEN 48.6 mg/dL (7-18); CALCIUM 7.1 mg/dL (8.5-10.1); CREATININE 1.6 mg/dL (0.55-1.3); POTASSIUM 3.2 mmol/L (3.5-5.1); TOT PROT 5.8 g/dl (6.4-8.2)
[2019-06-03 07:45] LABS: HEMATOCRIT 24.5 % (32.4-45.2); HEMOGLOBIN 8.2 GM/dL (10.7-15.3); MCH 29.9 pg (25.7-33.7); MCHC 33.7 g/dl (32.0-36.0); MEAN CELL VOLUME 88.6 fl (80-96); MEAN PLT VOLUME 11.2 fl (7.5-11.1); RBC 2.76 M/mm3 (3.60-5.2); RDW 14.1 % (11.6-15.6); WHITE BLOOD COUNT 11.1 K/mm3 (4.0-10.0)
[2019-06-03 08:29] LABS: PLATELET COUNT 209 K/MM3 (134-434)
[2019-06-03] MEDS ORDERED: PT OWN MED DRAWER 7, Y5N ONE ×3 (08:58→20:44)
[2019-06-03] MEDS ORDERED: POTASSIUM CHLORIDE TABS 20 MEQ TABLET.ER (FP) PO ONE (09:00)
--- NOTE | 2019-06-03 09:15 | PN ---
Teaching Attending Note Name of Resident: Petrona Spencer ATTENDING PHYSICIAN STATEMENT I saw and evaluated the patient. I reviewed the resident's note and discussed the case with the resident. I agree with the resident's findings and plan as documented. SUBJECTIVE: Patient is feeling better continues to use oxygen. OBJECTIVE: Vital Signs Temperature 98.7 F 06/03/19 06:23 Pulse Rate 66 06/02/19 20:22 Respiratory Rate 20 06/03/19 06:23 Blood Pressure 147/57 L 06/03/19 06:23 O2 Sat by Pulse Oximetry (%) 98 06/03/19 05:30 GENERAL: The patient is awake, alert, and fully oriented, in no acute distress. HEAD: Normal with no signs of trauma. EYES: PERRL, extraocular movements intact, sclera anicteric, conjunctiva clear. ENT: Ears normal, oropharynx clear without exudates, moist mucous membranes. NECK: Trachea midline, full range of motion, supple. LUNGS: decreased BS BL , no accessory muscle use. HEART: Regular rate and rhythm, S1, S2 positive, S1s2 positive, JOSSY 2/6 , no rub or gallop. ABDOMEN: Soft, NT, ND, normoactive bowel sounds, no guarding, no rebound, no hepatosplenomegaly, no masses. EXTREMITIES: 2+ pulses, warm, well-perfused, no edema. NEUROLOGICAL: Cranial nerves II through XII grossly intact. Normal speech. PSYCH: Normal mood, normal affect. SKIN: Warm, dry, normal turgor, no rashes or lesions noted WBC 11.1 K/mm3 (4.0-10.0) H 06/03/19 06:50 RBC 2.76 M/mm3 (3.60-5.2) L 06/03/19 06:50 Hgb 8.2 GM/dL (10.7-15.3) L 06/03/19 06:50 Hct 24.5 % (32.4-45.2) L 06/03/19 06:50 MCV 88.6 fl (80-96) 06/03/19 06:50 MCHC 33.7 g/dl (32.0-36.0) 06/03/19 06:50 RDW 14.1 % (11.6-15.6) 06/03/19 06:50 Plt Count 209 K/MM3 (134-434) 06/03/19 06:50 MPV 11.2 fl (7.5-11.1) H 06/03/19 06:50 CMP Sodium 146 mmol/L (136-145) H 06/03/19 06:50 Potassium 3.2 mmol/L (3.5-5.1) L 06/03/19 06:50 Chloride 110 mmol/L (98-107) H 06/03/19 06:50 Carbon Dioxide 30 mmol/L (21-32) 06/03/19 06:50 Anion Gap 6 MMOL/L (8-16) L 06/03/19 06:50 BUN 48.6 mg/dL (7-18) H 06/03/19 06:50 Creatinine 1.6 mg/dL (0.55-1.3) H 06/03/19 06:50 Random Glucose 104 mg/dL (74-106) 06/03/19 06:50 Calcium 7.1 mg/dL (8.5-10.1) L 06/03/19 06:50 Total Bilirubin 0.8 mg/dL (0.2-1) 06/03/19 06:50 AST 20 U/L (15-37) 06/03/19 06:50 ALT 31 U/L (13-61) 06/03/19 06:50 Alkaline Phosphatase 45 U/L (45-117) 06/03/19 06:50 Total Protein 5.8 g/dl (6.4-8.2) L 06/03/19 06:50 Albumin 3.0 g/dl (3.4-5.0) L 06/03/19 06:50 CARDIAC ENZYMES Creatine Kinase 94 U/L (26-192) 05/28/19 19:52 Troponin I 0.03 ng/ml (0.00-0.05) 05/28/19 19:52 Current Medications Generic Name Dose Route Start Last Admin Trade Name Hugo PRN Reason Stop Dose Admin Amlodipine Besylate 10 mg 05/29/19 10:00 06/02/19 10:59 Norvasc - PO 10 mg DAILY [facility] Administration Aspirin 81 mg 05/29/19 10:00 06/02/19 10:59 Ecotrin - PO 81 mg DAILY [facility] Administration Atorvastatin Calcium 40 mg 05/29/19 22:00 06/02/19 21:00 Lipitor - PO 40 mg HS [facility] Administration Budesonide/Formoterol Fumarate 2 puff 05/29/19 12:15 06/02/19 21:00 Symbicort 160/4.5mcg - IH 2 puff BID [facility] Administration Doxazosin Mesylate 2 mg 05/29/19 07:00 06/03/19 06:32 Cardura - PO 2 mg AM [facility] Administration Doxazosin Mesylate 4 mg 05/29/19 22:00 06/02/19 21:00 Cardura - PO 4 mg HS [facility] Administration Furosemide 60 mg 05/29/19 10:00 06/02/19 10:58 Lasix Injection - IVPUSH 60 mg DAILY [facility] Administration Heparin Sodium (Porcine) 5,000 unit 05/29/19 14:00 06/03/19 06:26 Heparin - SQ Not Given TID [facility] Hydralazine HCl 50 mg 06/02/19 20:30 06/03/19 06:32 Apresoline - PO 50 mg BID@0700,2200 [facility] Administration Melatonin 5 mg 05/31/19 01:40 Melatonin PO ONCE PRN INSOMNIA Nebivolol 10 mg 05/29/19 10:00 06/02/19 10:59 Bystolic - PO 10 mg DAILY [facility] Administration Polyethylene Glycol 17 gm 05/31/19 12:20 Miralax (For Daily Use) - PO DAILY PRN CONSTIPATION Home Medications Medication Instructions Recorded Amlodipine Besylate 10 mg PO DAILY 05/29/19 Aspirin [Ecotrin] 81 mg PO DAILY 05/29/19 Atorvastatin Ca [Lipitor] 40 mg PO HS 05/29/19 Calcium Carb, Citrate/Vit D3 1 tab PO DAILY 05/29/19 [Calcium + D3 ER Tablet] Doxazosin Mesylate 2 mg PO AM 05/29/19 Doxazosin Mesylate 4 mg PO HS 05/29/19 Furosemide [Lasix] 40 mg PO DAILY 05/29/19 Hydralazine HCl 35 mg PO AM 05/29/19 Hydralazine HCl 35 mg PO HS 05/29/19 Nebivolol HCl [Bystolic] 10 mg PO DAILY 05/29/19 Intake & Output 05/31/19 06/01/19 06/02/19 06/03/19 23:59 23:59 23:59 23:59 Intake Total 50 1780 480 Output Total 1100 2100 2200 400 Balance -1050 -320 -1720 -400 Weight 55.338 kg 54.204 kg 56.835 kg 53.212 kg Microbiology 05/29/19 15:30 Urine - Urine Jeffery Urine Culture - Final NO GROWTH OBTAINED ASSESSMENT AND PLAN: Patient is an 84yo female with PMhx of CHF, COPD, HTN , CAD, Alzheimer, renal cysts , s/p PCI, who presented with worsening SOB. She was found in acute resp failure. # HTN Uncontrolled:better controlled sine increased the dose of hydralazine from 35mg to 50mg tid. will continue to monitor # Acute respiratory failure due to COPD exacerbation with CHF exacerbation. improving but saturation on 3 liter is 92%,and 86% on room air , will repeat pre and post # Acute diastolic CHF exacerbation: on IV lasix , will be switched to oral lasix 40mg bid in am # Acute COPd exacerbation: continue neb.treatment # MARCELL on CKD IV: likely prerenal azotemia due to CHF # Acute UTI: s/p ceftriaxone . urine cx neg but Abx were given before cx was sent DVT px: SQ heparin Full code. possible dc back to independent living if medically stable
[2019-06-03] MEDS: BUDESONIDE/FORMETEROL FUMARATE 160/4.5 mcg INHALER IH SCH ×2 (10:40→22:01)
[2019-06-03] MEDS: ASPIRIN COATED 81 MG TABLET.EC PO SCH (10:40)
[2019-06-03] MEDS: FUROSEMIDE 40 MG/4 ML INJECTABLE VIAL IVPUSH SCH (10:40)
[2019-06-03] MEDS: amLODIPine BESYLATE 10 MG TABLET (FP) PO SCH (10:40)
[2019-06-03] MEDS ORDERED: GLYCERIN 1 RECTAL SUPPOSITORY, ADULT RC ONE (10:42)
--- NOTE | 2019-06-03 11:33 | PN ---
Progress Note, Physician Chief Complaint: feeling "much better" Weight is down History of Present Illness: appears comfortable - Current Medication List Current Medications: Active Medications Amlodipine Besylate (Norvasc -) 10 mg PO DAILY [facility] Last Admin: 06/03/19 10:40 Dose: 10 mg Aspirin (Ecotrin -) 81 mg PO DAILY [facility] Last Admin: 06/03/19 10:40 Dose: 81 mg Atorvastatin Calcium (Lipitor -) 40 mg PO HS [facility] Last Admin: 06/02/19 21:00 Dose: 40 mg Budesonide/Formoterol Fumarate (Symbicort 160/4.5mcg -) 2 puff IH BID [facility] Last Admin: 06/03/19 10:40 Dose: 2 puff Docusate Sodium (Colace -) 200 mg PO HS [facility] Doxazosin Mesylate (Cardura -) 2 mg PO AM [facility] Last Admin: 06/03/19 06:32 Dose: 2 mg Doxazosin Mesylate (Cardura -) 4 mg PO HS [facility] Last Admin: 06/02/19 21:00 Dose: 4 mg Furosemide (Lasix Injection -) 60 mg IVPUSH DAILY [facility] Last Admin: 06/03/19 10:40 Dose: 60 mg Heparin Sodium (Porcine) (Heparin -) 5,000 unit SQ TID [facility] Last Admin: 06/03/19 06:26 Dose: Not Given Hydralazine HCl (Apresoline -) 50 mg PO BID@0700,2200 [facility] Last Admin: 06/03/19 06:32 Dose: 50 mg Melatonin (Melatonin) 5 mg PO ONCE PRN PRN Reason: INSOMNIA Nebivolol (Bystolic -) 10 mg PO DAILY [facility] Last Admin: 06/02/19 10:59 Dose: 10 mg Polyethylene Glycol (Miralax (For Daily Use) -) 17 gm PO DAILY [facility] Potassium Chloride (K-Dur -) 20 meq PO BID [facility] Stop: 06/04/19 22:01 - Objective Vital Signs: Vital Signs Temperature 98.7 F 06/03/19 06:23 Pulse Rate 66 06/02/19 20:22 Respiratory Rate 20 06/03/19 06:23 Blood Pressure 147/57 L 06/03/19 06:23 O2 Sat by Pulse Oximetry (%) 98 06/03/19 05:30 Constitutional: Yes: No Distress Cardiovascular: Yes: Regular Rate and Rhythm, Other (No JVD) Respiratory: Yes: Other (decreased breath sounds left, o/w CTA) Gastrointestinal: Yes: Soft Edema: No Neurological: Yes: Alert Labs: CBC, BMP 06/03/19 06:50 06/03/19 06:50 Laboratory Tests 05/28/19 05/30/19 05/31/19 19:52 07:50 06:20 WBC Hgb Plt Count Sodium 142 Potassium 3.7 BUN 87.0 H 100.1 H Creatinine 3.1 H 2.9 H B-Natriuretic Peptide 79041.3 H 05/31/19 06/03/19 06/03/19 06:20 06:50 06:50 WBC 23.5 H 11.1 H Hgb 8.7 L 8.2 L Plt Count 215 209 Sodium 146 H Potassium 3.2 L BUN 48.6 H Creatinine 1.6 H B-Natriuretic Peptide Assessment/Plan ecg: sr, nl intervals, no st changes, lat twis cxr: chf a/p: 84 f hx dementia, ckd, cea, diastolic chf, htn, hld, mi s/p remote pci, here with sob. Acute diastolic chf:clinically improved. -Can switch to PO Lasix 7/20: 40mg PO BID. Would observe on PO Lasix for 24 hours and if stable plan for d/c home Thursday w/ home O2 CKD:improved. -cr near baseline HTN: -cont home meds HLD: -cont statin CAD, s/p mi and remote pci: -no signs acs -cont statin, asa, bb, nitrate
[2019-06-03] MEDS: NEBIVOLOL 10 MG TABLET (FP) PO SCH (13:57)
--- NOTE | 2019-06-03 14:20 | PN ---
Progress Note (short form) - Note Progress Note: Renal follow up for MARCELL on CKD Pt seen and examined at the bedside no acute complaints feels much better making urine tolerating oral diet sob is improved Vital Signs Temperature 97.7 F 06/03/19 14:04 Pulse Rate 65 06/03/19 14:04 Respiratory Rate 20 06/03/19 14:04 Blood Pressure 150/59 L 06/03/19 14:04 O2 Sat by Pulse Oximetry (%) 98 06/03/19 05:30 Intake & Output 05/31/19 06/01/19 06/02/19 06/03/19 23:59 23:59 23:59 23:59 Intake Total 50 1780 480 360 Output Total 1100 2100 2200 1100 Balance -1050 -320 -1720 -740 Weight 55.338 kg 54.204 kg 56.835 kg 53.212 kg NAD on NC O2 RRR Dec BS, no rales or wheeze soft NT/ND no LE edema CBC, BMP 06/03/19 06:50 06/03/19 06:50 Current Medications Amlodipine Besylate (Norvasc -) 10 mg PO DAILY [facility] Last Admin: 06/03/19 10:40 Dose: 10 mg Aspirin (Ecotrin -) 81 mg PO DAILY [facility] Last Admin: 06/03/19 10:40 Dose: 81 mg Atorvastatin Calcium (Lipitor -) 40 mg PO HS [facility] Last Admin: 06/02/19 21:00 Dose: 40 mg Budesonide/Formoterol Fumarate (Symbicort 160/4.5mcg -) 2 puff IH BID [facility] Last Admin: 06/03/19 10:40 Dose: 2 puff Docusate Sodium (Colace -) 200 mg PO HS [facility] Doxazosin Mesylate (Cardura -) 2 mg PO AM [facility] Last Admin: 06/03/19 06:32 Dose: 2 mg Doxazosin Mesylate (Cardura -) 4 mg PO HS [facility] Last Admin: 06/02/19 21:00 Dose: 4 mg Furosemide (Lasix -) 40 mg PO BID@0600,1400 [facility] Heparin Sodium (Porcine) (Heparin -) 5,000 unit SQ TID [facility] Last Admin: 06/03/19 14:03 Dose: Not Given Hydralazine HCl (Apresoline -) 50 mg PO BID@0700,2200 [facility] Last Admin: 06/03/19 06:32 Dose: 50 mg Melatonin (Melatonin) 5 mg PO ONCE PRN PRN Reason: INSOMNIA Nebivolol (Bystolic -) 10 mg PO DAILY [facility] Last Admin: 06/03/19 13:57 Dose: 10 mg Polyethylene Glycol (Miralax (For Daily Use) -) 17 gm PO DAILY [facility] Potassium Chloride (K-Dur -) 20 meq PO BID [facility] Stop: 06/04/19 22:01 84 year old female past medical history of Congestive heart failure, CKD 3-4, Coronary artery disease, [place], s/p PTIC, stenting, PVD< Left carotid endarterectomy, Alzheimers who presented to the hospital with worsening shortmess of breath. 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 David Diaz) #Renal cystic disease/complex cyst #Diastolic HF/Acute CHF #CAD #Proteinuria Renal function improved to baseline Oral diuretics as per cardiology continue steroid taper as per pulmonary Ct not yet done, can be done as outpatient. follows with urology regarding cysts to follow up with Dr. David Diaz as an outpatient. Thank you Prateek Chavez DO
--- NOTE | 2019-06-03 14:26 | PN ---
Physical Exam: SUBJECTIVE: Patient seen and examined. No acute events overnight. Pt slept with NC 4L O2 throughout the night, maintaining sat >92%. She slept better with less anxiety than prior evenings. No chest pain or worsening of breathing. Cough is clearing. OBJECTIVE: Vital Signs Period Temp Pulse Resp BP Sys/Michelle Pulse Ox Last 24 Hr 97.7 F-98.7 F 63-86 20-20 138-184/57-70 91-98 GENERAL: The patient is awake, alert, and fully oriented, in no acute distress. HEAD: Normal with no signs of trauma. EYES: PERRL, extraocular movements intact, sclera anicteric, conjunctiva clear. No ptosis. ENT: Ears normal, nares patent, oropharynx clear without exudates, moist mucous membranes. NECK: Trachea midline, full range of motion, supple. LUNGS: Improved breathing. Mild crackles at base. Mild wheezes throughout. Accessory muscle use. Sat at 83% on RA, 92% on 5L NC O2. HEART: Tachycardic, S1, S2 without murmur, rub or gallop. + JVD ABDOMEN: Soft, nontender, nondistended, normoactive bowel sounds, no guarding, no rebound, no hepatosplenomegaly, no masses. EXTREMITIES: 2+ pulses, warm, well-perfused, no edema. Pt appears euvolemic. NEUROLOGICAL: Cranial nerves II through XII grossly intact. Normal speech, gait not observed. PSYCH: Normal mood, normal affect. SKIN: Warm, dry, normal turgor, no rashes or lesions noted Laboratory Results - last 24 hr CBC, BMP 06/03/19 06:50 06/03/19 06:50 Active Medications Amlodipine Besylate (Norvasc -) 10 mg PO DAILY [facility] Last Admin: 06/03/19 10:40 Dose: 10 mg Aspirin (Ecotrin -) 81 mg PO DAILY [facility] Last Admin: 06/03/19 10:40 Dose: 81 mg Atorvastatin Calcium (Lipitor -) 40 mg PO [facility] Last Admin: 06/02/19 21:00 Dose: 40 mg Budesonide/Formoterol Fumarate (Symbicort 160/4.5mcg -) 2 puff IH BID [facility] Last Admin: 06/03/19 10:40 Dose: 2 puff Docusate Sodium (Colace -) 200 mg PO [facility] Doxazosin Mesylate (Cardura -) 2 mg PO AM [facility] Last Admin: 06/03/19 06:32 Dose: 2 mg Doxazosin Mesylate (Cardura -) 4 mg PO HS [facility] Last Admin: 06/02/19 21:00 Dose: 4 mg Furosemide (Lasix -) 40 mg PO BID@0600,1400 [facility] Heparin Sodium (Porcine) (Heparin -) 5,000 unit SQ TID [facility] Last Admin: 06/03/19 14:03 Dose: Not Given Hydralazine HCl (Apresoline -) 50 mg PO BID@0700,2200 [facility] Last Admin: 06/03/19 06:32 Dose: 50 mg Melatonin (Melatonin) 5 mg PO ONCE PRN PRN Reason: INSOMNIA Nebivolol (Bystolic -) 10 mg PO DAILY [facility] Last Admin: 06/03/19 13:57 Dose: 10 mg Polyethylene Glycol (Miralax (For Daily Use) -) 17 gm PO DAILY [facility] Potassium Chloride (K-Dur -) 20 meq PO BID [facility] Stop: 06/04/19 22:01 ASSESSMENT/PLAN: Pt is an 84 year old female from [facility], with a PMH of diastolic heart failure, stage 3 renal failure (not on hemodialysis), MD (drug eluting stent several years ago), L carotid endarterectomy, alzheimers who presents to the ED with 2 days of worsening SOB. #Acute respiratory failure 2/2 COPD exacerbation with CHF exacerbation CXR: progressive bibasilar pulmonary and pleural findings Pre/post respiratory test: 84% on RA, 91% on 6L Lasix 40mg po BID as per cardio D/c steroids as per pulm (Dr. Everett) and monitor Nebs prn and Symbicort Incentive spirometer QID Chest CT and echo not tolerated by patient #Hypertensive Urgency Resume home meds nebivolol 10mg qd, hydralazine 35g BID, cardura 2mg qd, amlodipine 10mg qd Frequent monitoring Per daughter, baseline BP 150-160 #MARCELL, likely prerenal azotemia Cr: 1.6, BUN: 48.6 (baseline Cr 1.8-2.1) Likely 2/2 to CHF exacerbation or steroid dependent Cont to monitor BMP, holding fluids for now Renal US: pt refused Nephro on board #Anxiety/agitation Ordered a sitter to be with pt throughout the day and monitor her on/off BiPAP Daughter or pt's home service consultant will stay with pt overnight If pt is excessively anxious and pulling BiPAP off, assess for resp failure. See if she saturates okay NC. Can give olanzapine if necessary #UTI Can d/c abx per nephro #FEN Hold fluids for now Sodium controlled diet #DVT ppx Heparin SQ #Dispo D/c pt with O2 to short term rehab Code status : she has a living will which states " DNR/DNI" spoke to laverne Garcia over the phone who expressed she wanted her mom to be full code. Dayron at bedside agrees. Spoke to Bill, HCP, over phone ), and he agrees to full code. Visit type - Emergency Visit Emergency Visit: No - New Patient This patient is new to me today: No - Critical Care Critical Care patient: No ATTENDING PHYSICIAN STATEMENT I saw and evaluated the patient. I reviewed the resident's note and discussed the case with the resident. I agree with the resident's findings and plan as documented. SUBJECTIVE: OBJECTIVE: ASSESSMENT AND PLAN:
--- NOTE | 2019-06-03 15:37 | PN ---
Progress Note (short form) - Note Progress Note: Breathing continues to improve. Some residual cough with clear sputum. Intake & Output 05/31/19 06/01/19 06/02/19 06/03/19 23:59 23:59 23:59 23:59 Intake Total 50 1780 480 360 Output Total 1100 2100 2200 1100 Balance -1050 -320 -1720 -740 Weight 122 lb 119 lb 8 oz 125 lb 4.8 oz 117 lb 5 oz Last Vital Signs Temp Pulse Resp BP Pulse Ox 97.7 F 65 20 150/59 L 97 06/03/19 14:04 06/03/19 14:04 06/03/19 14:04 06/03/19 14:04 06/03/19 08:35 Active Medications Amlodipine Besylate (Norvasc -) 10 mg PO DAILY [facility] Last Admin: 06/03/19 10:40 Dose: 10 mg Aspirin (Ecotrin -) 81 mg PO DAILY [facility] Last Admin: 06/03/19 10:40 Dose: 81 mg Atorvastatin Calcium (Lipitor -) 40 mg PO HS [facility] Last Admin: 06/02/19 21:00 Dose: 40 mg Budesonide/Formoterol Fumarate (Symbicort 160/4.5mcg -) 2 puff IH BID [facility] Last Admin: 06/03/19 10:40 Dose: 2 puff Docusate Sodium (Colace -) 200 mg PO HS [facility] Doxazosin Mesylate (Cardura -) 2 mg PO AM [facility] Last Admin: 06/03/19 06:32 Dose: 2 mg Doxazosin Mesylate (Cardura -) 4 mg PO HS [facility] Last Admin: 06/02/19 21:00 Dose: 4 mg Furosemide (Lasix -) 40 mg PO BID@0600,1400 [facility] Heparin Sodium (Porcine) (Heparin -) 5,000 unit SQ TID [facility] Last Admin: 06/03/19 14:03 Dose: Not Given Hydralazine HCl (Apresoline -) 50 mg PO BID@0700,2200 [facility] Last Admin: 06/03/19 06:32 Dose: 50 mg Melatonin (Melatonin) 5 mg PO ONCE PRN PRN Reason: INSOMNIA Nebivolol (Bystolic -) 10 mg PO DAILY [facility] Last Admin: 06/03/19 13:57 Dose: 10 mg Polyethylene Glycol (Miralax (For Daily Use) -) 17 gm PO DAILY [facility] Potassium Chloride (K-Dur -) 20 meq PO BID [facility] Stop: 06/04/19 22:01 Gen: less tachypneic at rest Heart: RRR Lung: basilar rales Abd: soft, nontender Ext: no edema Laboratory Results - last 24 hr 06/02/19 06/02/19 06/03/19 12:41 17:33 06:50 WBC 11.1 H RBC 2.76 L Hgb 8.2 L Hct 24.5 L MCV 88.6 MCH 29.9 MCHC 33.7 RDW 14.1 Plt Count 209 MPV 11.2 H Sodium Potassium Chloride Carbon Dioxide Anion Gap BUN Creatinine Est GFR (CKD-EPI)AfAm Est GFR (CKD-EPI)NonAf POC Glucometer 93 119 Random Glucose Calcium Total Bilirubin AST ALT Alkaline Phosphatase Total Protein Albumin 06/03/19 06:50 WBC RBC Hgb Hct MCV MCH MCHC RDW Plt Count MPV Sodium 146 H Potassium 3.2 L Chloride 110 H Carbon Dioxide 30 Anion Gap 6 L BUN 48.6 H Creatinine 1.6 H Est GFR (CKD-EPI)AfAm 33.47 Est GFR (CKD-EPI)NonAf 28.88 POC Glucometer Random Glucose 104 Calcium 7.1 L Total Bilirubin 0.8 AST 20 ALT 31 Alkaline Phosphatase 45 Total Protein 5.8 L Albumin 3.0 L A/P Acute on Chronic Diastolic Heart Failure Acute COPD Exacerbation Acute on Chronic Renal Failure UTI CAD HTN Dementia - Lasix BID - monitor urine output, creatinine - daily weights - monitor off steroids - inhaled bronchodilators - s/p antibiotics - DVT prophylaxis Dr Martinez
[2019-06-03] MEDS: ATORVASTATIN CA 40 MG TABLET (FP) PO SCH (21:52)
[2019-06-03] MEDS: DOCUSATE SODIUM 100 MG CAPSULE (FP) PO SCH (21:53)
[2019-06-03] MEDS: DOXAZOSIN MESYLATE 4 MG TABLET PO SCH (21:53)
[2019-06-03] MEDS: POTASSIUM CHLORIDE TABS 20 MEQ TABLET.ER (FP) PO SCH (21:53)
[2019-06-04] MEDS: HEPARIN NA (PORCINE) 5,000 UNITS/ML 1ML VIAL SQ SCH ×4 (06:24→21:22)
[2019-06-04] MEDS: FUROSEMIDE 40 MG TABLET (FP) PO SCH ×2 (06:24→13:52)
[2019-06-04] MEDS: hydrALAZINE HCL 25 MG TABLET (FP) PO SCH ×2 (06:24→21:22)
[2019-06-04] MEDS: DOXAZOSIN MESYLATE 2 MG TABLET (FP) PO SCH (06:26)
[2019-06-04 08:46] LABS: ALBUMIN 2.9 g/dl (3.4-5.0); BILIRUBIN,TOTAL 0.8 mg/dL (0.2-1); BLOOD UREA NITROGEN 42.7 mg/dL (7-18); CALCIUM 7.6 mg/dL (8.5-10.1); CREATININE 1.5 mg/dL (0.55-1.3); POTASSIUM 3.8 mmol/L (3.5-5.1); TOT PROT 5.7 g/dl (6.4-8.2)
[2019-06-04 10:04] LABS: HEMATOCRIT 24.8 % (32.4-45.2); HEMOGLOBIN 8.3 GM/dL (10.7-15.3); MCH 29.9 pg (25.7-33.7); MCHC 33.6 g/dl (32.0-36.0); PLATELET COUNT 210 K/MM3 (134-434); RBC 2.78 M/mm3 (3.60-5.2); RDW 13.8 % (11.6-15.6); WHITE BLOOD COUNT 10.4 K/mm3 (4.0-10.0)
[2019-06-04] MEDS ORDERED: PT OWN MED DRAWER 7, Y5N ONE ×2 (10:27→21:16)
[2019-06-04] MEDS: POTASSIUM CHLORIDE TABS 20 MEQ TABLET.ER (FP) PO SCH ×2 (10:40→21:22)
[2019-06-04] MEDS: ASPIRIN COATED 81 MG TABLET.EC PO SCH (10:40)
[2019-06-04] MEDS: amLODIPine BESYLATE 10 MG TABLET (FP) PO SCH (10:40)
[2019-06-04] MEDS: NEBIVOLOL 10 MG TABLET (FP) PO SCH (10:40)
[2019-06-04] MEDS: BUDESONIDE/FORMETEROL FUMARATE 160/4.5 mcg INHALER IH SCH ×2 (10:41→21:24)
[2019-06-04] MEDS: POLYETHYLENE GLYCOL 3350 119 GM BTL PO SCH (10:42)
--- NOTE | 2019-06-04 10:55 | PN ---
Progress Note, Physician Chief Complaint: seen and examined w/ son at bedside She denies CP, SOB, palps. Vasquez still in place She wants to go home, today is first day on PO Lasix - Current Medication List Current Medications: Active Medications Amlodipine Besylate (Norvasc -) 10 mg PO DAILY [facility] Last Admin: 06/04/19 10:40 Dose: 10 mg Aspirin (Ecotrin -) 81 mg PO DAILY [facility] Last Admin: 06/04/19 10:40 Dose: 81 mg Atorvastatin Calcium (Lipitor -) 40 mg PO HS [facility] Last Admin: 06/03/19 21:52 Dose: 40 mg Budesonide/Formoterol Fumarate (Symbicort 160/4.5mcg -) 2 puff IH BID [facility] Last Admin: 06/04/19 10:41 Dose: 2 puff Docusate Sodium (Colace -) 200 mg PO HS [facility] Last Admin: 06/03/19 21:53 Dose: 200 mg Doxazosin Mesylate (Cardura -) 2 mg PO AM [facility] Last Admin: 06/04/19 06:26 Dose: 2 mg Doxazosin Mesylate (Cardura -) 4 mg PO HS [facility] Last Admin: 06/03/19 21:53 Dose: 4 mg Furosemide (Lasix -) 40 mg PO BID@0600,1400 [facility] Last Admin: 06/04/19 06:24 Dose: 40 mg Heparin Sodium (Porcine) (Heparin -) 5,000 unit SQ TID [facility] Last Admin: 06/04/19 06:24 Dose: Not Given Hydralazine HCl (Apresoline -) 50 mg PO BID@0700,2200 [facility] Last Admin: 06/04/19 06:24 Dose: 50 mg Melatonin (Melatonin) 5 mg PO ONCE PRN PRN Reason: INSOMNIA Nebivolol (Bystolic -) 10 mg PO DAILY [facility] Last Admin: 06/04/19 10:40 Dose: 10 mg Polyethylene Glycol (Miralax (For Daily Use) -) 17 gm PO DAILY [facility] Last Admin: 06/04/19 10:42 Dose: 17 g Potassium Chloride (K-Dur -) 20 meq PO BID [facility] Stop: 06/04/19 22:01 Last Admin: 06/04/19 10:40 Dose: 20 meq - Objective Vital Signs: Vital Signs Temperature 98.0 F 06/03/19 23:00 Pulse Rate 70 06/03/19 23:00 Respiratory Rate 20 06/03/19 23:00 Blood Pressure 138/69 06/04/19 06:31 O2 Sat by Pulse Oximetry (%) 97 06/03/19 21:00 Constitutional: Yes: No Distress Cardiovascular: Yes: Regular Rate and Rhythm Respiratory: Yes: Other (rales left base clear w/ cough and deep breathing) Gastrointestinal: Yes: Soft Edema: No Neurological: Yes: Alert, Oriented Labs: CBC, BMP 06/04/19 07:40 06/04/19 07:40 Assessment/Plan Assessment/Plan ecg: sr, nl intervals, no st changes, lat twis cxr: chf a/p: 84 f hx dementia, ckd, cea, diastolic chf, htn, hld, mi s/p remote pci, here with sob. Acute diastolic chf:clinically improved. -first day on PO Lasix today; observe for 24 hours and if stable plan for d/c home tomorrow. -D/C vasquez today, assure patient can void on her own. CKD:improved. -cr near baseline HTN: -cont home meds HLD: -cont statin CAD, s/p mi and remote pci: -no signs acs -cont statin, asa, bb, nitrate
--- NOTE | 2019-06-04 11:53 | PN ---
Progress Note (short form) - Note Progress Note: Breathing continues to improve. Some residual cough with clear sputum. No acute events overnight. Intake & Output 06/01/19 06/02/19 06/03/19 06/04/19 23:59 23:59 23:59 23:59 Intake Total 1780 480 360 Output Total 2100 2200 1100 700 Balance -320 -1720 -740 -700 Weight 119 lb 8 oz 125 lb 4.8 oz 117 lb 5 oz 120 lb 8 oz Last Vital Signs Temp Pulse Resp BP Pulse Ox 98.0 F 70 20 138/69 97 06/03/19 23:00 06/03/19 23:00 06/03/19 23:00 06/04/19 06:31 06/03/19 21:00 Active Medications Amlodipine Besylate (Norvasc -) 10 mg PO DAILY [facility] Last Admin: 06/04/19 10:40 Dose: 10 mg Aspirin (Ecotrin -) 81 mg PO DAILY [facility] Last Admin: 06/04/19 10:40 Dose: 81 mg Atorvastatin Calcium (Lipitor -) 40 mg PO HS [facility] Last Admin: 06/03/19 21:52 Dose: 40 mg Budesonide/Formoterol Fumarate (Symbicort 160/4.5mcg -) 2 puff IH BID [facility] Last Admin: 06/04/19 10:41 Dose: 2 puff Docusate Sodium (Colace -) 200 mg PO HS [facility] Last Admin: 06/03/19 21:53 Dose: 200 mg Doxazosin Mesylate (Cardura -) 2 mg PO AM [facility] Last Admin: 06/04/19 06:26 Dose: 2 mg Doxazosin Mesylate (Cardura -) 4 mg PO HS [facility] Last Admin: 06/03/19 21:53 Dose: 4 mg Furosemide (Lasix -) 40 mg PO BID@0600,1400 [facility] Last Admin: 06/04/19 06:24 Dose: 40 mg Heparin Sodium (Porcine) (Heparin -) 5,000 unit SQ TID [facility] Last Admin: 06/04/19 06:24 Dose: Not Given Hydralazine HCl (Apresoline -) 50 mg PO BID@0700,2200 [facility] Last Admin: 06/04/19 06:24 Dose: 50 mg Melatonin (Melatonin) 5 mg PO ONCE PRN PRN Reason: INSOMNIA Nebivolol (Bystolic -) 10 mg PO DAILY [facility] Last Admin: 06/04/19 10:40 Dose: 10 mg Polyethylene Glycol (Miralax (For Daily Use) -) 17 gm PO DAILY [facility] Last Admin: 06/04/19 10:42 Dose: 17 g Potassium Chloride (K-Dur -) 20 meq PO BID [facility] Stop: 06/04/19 22:01 Last Admin: 06/04/19 10:40 Dose: 20 meq Gen: NAD Heart: RRR Lung: Improving basilar rales Abd: soft, nontender Ext: no edema Laboratory Results - last 24 hr 06/04/19 06/04/19 06/04/19 07:40 07:40 11:29 WBC 10.4 H RBC 2.78 L Hgb 8.3 L Hct 24.8 L MCV 89.0 MCH 29.9 MCHC 33.6 RDW 13.8 Plt Count 210 MPV 11.0 Sodium 143 Potassium 3.8 Chloride 108 H Carbon Dioxide 30 Anion Gap 5 L BUN 42.7 H Creatinine 1.5 H Est GFR (CKD-EPI)AfAm 36.18 Est GFR (CKD-EPI)NonAf 31.22 POC Glucometer 143 Random Glucose 97 Calcium 7.6 L Total Bilirubin 0.8 AST 16 ALT 29 Alkaline Phosphatase 45 Total Protein 5.7 L Albumin 2.9 L A/P Acute on Chronic Diastolic Heart Failure Acute COPD Exacerbation Acute on Chronic Renal Failure UTI CAD HTN Dementia - Lasix BID - monitor urine output, creatinine - daily weights - monitor off steroids - inhaled bronchodilators - s/p antibiotics - DVT prophylaxis - D/C planning Dr Martinez
--- NOTE | 2019-06-04 15:27 | PN ---
Progress Note (short form) - Note Progress Note: Patient is feeling better with no acute distress. feels better. Vital Signs Temperature 98.5 F 06/04/19 10:00 Pulse Rate 67 06/04/19 10:00 Respiratory Rate 18 06/04/19 10:00 Blood Pressure 134/51 L 06/04/19 10:00 O2 Sat by Pulse Oximetry (%) 98 06/04/19 09:00 GENERAL: The patient is awake, alert, and fully oriented, in no acute distress. HEAD: Normal with no signs of trauma. EYES: PERRL, extraocular movements intact, sclera anicteric, conjunctiva clear. ENT: Ears normal, oropharynx clear without exudates, moist mucous membranes. NECK: Trachea midline, full range of motion, supple. LUNGS: decreased BS BL , no accessory muscle use. HEART: Regular rate and rhythm, S1, S2 positive, S1s2 positive, JOSSY 2/6 , no rub or gallop. ABDOMEN: Soft, NT, ND, normoactive bowel sounds, no guarding, no rebound, no hepatosplenomegaly, no masses. EXTREMITIES: 2+ pulses, warm, well-perfused, no edema. NEUROLOGICAL: Cranial nerves II through XII grossly intact. Normal speech. PSYCH: Normal mood, normal affect. SKIN: Warm, dry, normal turgor, no rashes or lesions noted CBCD WBC 10.4 K/mm3 (4.0-10.0) H 06/04/19 07:40 RBC 2.78 M/mm3 (3.60-5.2) L 06/04/19 07:40 Hgb 8.3 GM/dL (10.7-15.3) L 06/04/19 07:40 Hct 24.8 % (32.4-45.2) L 06/04/19 07:40 MCV 89.0 fl (80-96) 06/04/19 07:40 MCHC 33.6 g/dl (32.0-36.0) 06/04/19 07:40 RDW 13.8 % (11.6-15.6) 06/04/19 07:40 Plt Count 210 K/MM3 (134-434) 06/04/19 07:40 MPV 11.0 fl (7.5-11.1) 06/04/19 07:40 CMP Sodium 143 mmol/L (136-145) 06/04/19 07:40 Potassium 3.8 mmol/L (3.5-5.1) 06/04/19 07:40 Chloride 108 mmol/L (98-107) H 06/04/19 07:40 Carbon Dioxide 30 mmol/L (21-32) 06/04/19 07:40 Anion Gap 5 MMOL/L (8-16) L 06/04/19 07:40 BUN 42.7 mg/dL (7-18) H 06/04/19 07:40 Creatinine 1.5 mg/dL (0.55-1.3) H 06/04/19 07:40 Random Glucose 97 mg/dL (74-106) 06/04/19 07:40 Calcium 7.6 mg/dL (8.5-10.1) L 06/04/19 07:40 Total Bilirubin 0.8 mg/dL (0.2-1) 06/04/19 07:40 AST 16 U/L (15-37) 06/04/19 07:40 ALT 29 U/L (13-61) 06/04/19 07:40 Alkaline Phosphatase 45 U/L (45-117) 06/04/19 07:40 Total Protein 5.7 g/dl (6.4-8.2) L 06/04/19 07:40 Albumin 2.9 g/dl (3.4-5.0) L 06/04/19 07:40 CARDIAC ENZYMES Creatine Kinase 94 U/L (26-192) 05/28/19 19:52 Troponin I 0.03 ng/ml (0.00-0.05) 05/28/19 19:52 Current Medications Generic Name Dose Route Start Last Admin Trade Name Eltonq PRN Reason Stop Dose Admin Amlodipine Besylate 10 mg 05/29/19 10:00 06/04/19 10:40 Norvasc - PO 10 mg DAILY [facility] Administration Aspirin 81 mg 05/29/19 10:00 06/04/19 10:40 Ecotrin - PO 81 mg DAILY [facility] Administration Atorvastatin Calcium 40 mg 05/29/19 22:00 06/03/19 21:52 Lipitor - PO 40 mg HS [facility] Administration Budesonide/Formoterol Fumarate 2 puff 05/29/19 12:15 06/04/19 10:41 Symbicort 160/4.5mcg - IH 2 puff BID [facility] Administration Docusate Sodium 200 mg 06/03/19 22:00 06/03/19 21:53 Colace - PO 200 mg HS [facility] Administration Doxazosin Mesylate 2 mg 05/29/19 07:00 06/04/19 06:26 Cardura - PO 2 mg AM [facility] Administration Doxazosin Mesylate 4 mg 05/29/19 22:00 06/03/19 21:53 Cardura - PO 4 mg HS [facility] Administration Furosemide 40 mg 06/04/19 06:00 06/04/19 13:52 Lasix - PO 40 mg BID@0600,1400 [facility] Administration Heparin Sodium (Porcine) 5,000 unit 05/29/19 14:00 06/04/19 13:56 Heparin - SQ Not Given TID [facility] Hydralazine HCl 50 mg 06/02/19 20:30 06/04/19 06:24 Apresoline - PO 50 mg BID@0700,2200 [facility] Administration Melatonin 5 mg 05/31/19 01:40 Melatonin PO ONCE PRN INSOMNIA Nebivolol 10 mg 05/29/19 10:00 06/04/19 10:40 Bystolic - PO 10 mg DAILY [facility] Administration Polyethylene Glycol 17 gm 06/04/19 10:00 06/04/19 10:42 Miralax (For Daily Use) - PO 17 g DAILY [facility] Administration Potassium Chloride 20 meq 06/03/19 22:00 06/04/19 10:40 K-Dur - PO 06/04/19 22:01 20 meq BID [facility] Administration Home Medications Medication Instructions Recorded Amlodipine Besylate 10 mg PO DAILY 05/29/19 Aspirin [Ecotrin] 81 mg PO DAILY 05/29/19 Atorvastatin Ca [Lipitor] 40 mg PO HS 05/29/19 Calcium Carb, Citrate/Vit D3 1 tab PO DAILY 05/29/19 [Calcium + D3 ER Tablet] Doxazosin Mesylate 2 mg PO AM 05/29/19 Doxazosin Mesylate 4 mg PO HS 05/29/19 Furosemide [Lasix] 40 mg PO DAILY 05/29/19 Hydralazine HCl 35 mg PO AM 05/29/19 Hydralazine HCl 35 mg PO HS 05/29/19 Nebivolol HCl [Bystolic] 10 mg PO DAILY 05/29/19 05/29/19 15:30 Urine - Urine Jeffery Urine Culture - Final NO GROWTH OBTAINED ASSESSMENT AND PLAN: Patient is an 84yo female with PMhx of CHF, COPD, HTN , CAD, Alzheimer, renal cysts , s/p PCI, who presented with worsening SOB. She was found in acute respiratory failure. # HTN controlled now: since increased the dose of hydralazine from 35mg to 50mg tid. will continue to monitor # Acute respiratory failure due to COPD exacerbation with CHF exacerbation. improving but saturation on 3 liter is 92%,and 86% on room air , will repeat pre and post. in am # Acute diastolic CHF exacerbation: on IV lasix , will be switched to oral lasix 40mg bid in am # Acute COPd exacerbation: continue neb.treatment # MARCELL on CKD IV: likely prerenal azotemia due to CHF # Acute UTI: s/p ceftriaxone . urine cx neg but Abx were given before cx was sent DVT px: SQ heparin Full code. possible dc back to independent living if medically stable Visit type - Emergency Visit Emergency Visit: Yes ED Registration Date: 05/28/19 Care time: The patient presented to the Emergency Department on the above date and was hospitalized for further evaluation of their emergent condition. - New Patient This patient is new to me today: No - Critical Care Critical Care patient: No - Discharge Referral Referred to [facility] Med [facility].C.: No
[2019-06-04] MEDS ORDERED: guaiFENesin 200 MG/10 ML 10 ML UNIT-DOSE CUPS PO PRN (18:53)
[2019-06-04] MEDS: ATORVASTATIN CA 40 MG TABLET (FP) PO SCH (21:22)
[2019-06-04] MEDS: DOCUSATE SODIUM 100 MG CAPSULE (FP) PO SCH (21:22)
[2019-06-04] MEDS: DOXAZOSIN MESYLATE 4 MG TABLET PO SCH (23:07)
[2019-06-05] MEDS ORDERED: PT OWN MED DRAWER 7, Y5N ONE ×3 (05:59→21:23)
[2019-06-05] MEDS: hydrALAZINE HCL 25 MG TABLET (FP) PO SCH ×2 (06:16→21:42)
[2019-06-05] MEDS: HEPARIN NA (PORCINE) 5,000 UNITS/ML 1ML VIAL SQ SCH ×3 (06:16→21:42)
[2019-06-05] MEDS: FUROSEMIDE 40 MG TABLET (FP) PO SCH ×2 (06:16→14:33)
[2019-06-05] MEDS: DOXAZOSIN MESYLATE 2 MG TABLET (FP) PO SCH (06:17)
[2019-06-05] MEDS: NEBIVOLOL 10 MG TABLET (FP) PO SCH (09:01)
[2019-06-05] MEDS: POLYETHYLENE GLYCOL 3350 119 GM BTL PO SCH (09:02)
[2019-06-05] MEDS: ASPIRIN COATED 81 MG TABLET.EC PO SCH (09:02)
[2019-06-05] MEDS: amLODIPine BESYLATE 10 MG TABLET (FP) PO SCH (09:03)
[2019-06-05] MEDS: BUDESONIDE/FORMETEROL FUMARATE 160/4.5 mcg INHALER IH SCH ×2 (09:06→21:41)
--- NOTE | 2019-06-05 10:03 | PN ---
Progress Note, Physician Chief Complaint: seen and examined. Denies CP, SOB. Jeffery out. Reports urinating on own. - Current Medication List Current Medications: Active Medications Amlodipine Besylate (Norvasc -) 10 mg PO DAILY [facility] Last Admin: 06/05/19 09:03 Dose: 10 mg Aspirin (Ecotrin -) 81 mg PO DAILY [facility] Last Admin: 06/05/19 09:02 Dose: 81 mg Atorvastatin Calcium (Lipitor -) 40 mg PO HS [facility] Last Admin: 06/04/19 21:22 Dose: 40 mg Budesonide/Formoterol Fumarate (Symbicort 160/4.5mcg -) 2 puff IH BID [facility] Last Admin: 06/05/19 09:06 Dose: 2 puff Docusate Sodium (Colace -) 200 mg PO HS [facility] Last Admin: 06/04/19 21:22 Dose: 200 mg Doxazosin Mesylate (Cardura -) 2 mg PO AM [facility] Last Admin: 06/05/19 06:17 Dose: 2 mg Doxazosin Mesylate (Cardura -) 4 mg PO HS [facility] Last Admin: 06/04/19 23:07 Dose: 4 mg Furosemide (Lasix -) 40 mg PO BID@0600,1400 [facility] Last Admin: 06/05/19 06:16 Dose: 40 mg Guaifenesin (Robitussin -) 10 ml PO Q8H PRN PRN Reason: COUGH Last Admin: 06/04/19 21:22 Dose: 10 ml Heparin Sodium (Porcine) (Heparin -) 5,000 unit SQ TID [facility] Last Admin: 06/05/19 06:16 Dose: 5,000 unit Hydralazine HCl (Apresoline -) 50 mg PO BID@0700,2200 [facility] Last Admin: 06/05/19 06:16 Dose: 50 mg Melatonin (Melatonin) 5 mg PO ONCE PRN PRN Reason: INSOMNIA Nebivolol (Bystolic -) 10 mg PO DAILY [facility] Last Admin: 06/05/19 09:01 Dose: 10 mg Polyethylene Glycol (Miralax (For Daily Use) -) 17 gm PO DAILY [facility] Last Admin: 06/05/19 09:02 Dose: 17 gm - Objective Vital Signs: Vital Signs Temperature 97.5 F L 06/04/19 20:00 Pulse Rate 79 06/04/19 20:00 Respiratory Rate 20 06/04/19 20:00 Blood Pressure 148/75 06/04/19 20:00 O2 Sat by Pulse Oximetry (%) 98 06/04/19 21:00 Constitutional: Yes: No Distress Cardiovascular: Yes: Regular Rate and Rhythm Respiratory: Yes: CTA Bilaterally, Other (scattered rhonchi, no rales.) Gastrointestinal: Yes: Soft Edema: No Neurological: Yes: Alert, Oriented Labs: CBC, BMP 06/04/19 07:40 06/04/19 07:40 Assessment/Plan Assessment/Plan ecg: sr, nl intervals, no st changes, lat twis cxr: chf a/p: 84 f hx dementia, ckd, cea, diastolic chf, htn, hld, mi s/p remote pci, here with sob. Acute diastolic chf:clinically improved. -stable now after 24hours PO Lasix -Jeffery d/c'd -Stable for discharge from CV standpoint. CKD:improved. -cr near baseline HTN: -cont home meds HLD: -cont statin CAD, s/p mi and remote pci: -no signs acs -cont statin, asa, bb, nitrate
--- NOTE | 2019-06-05 11:14 | PN ---
Progress Note (short form) - Note Progress Note: Breathing continues to improve. Some residual cough with clear sputum. No acute events overnight. Intake & Output 06/02/19 06/03/19 06/04/19 06/05/19 23:59 23:59 23:59 23:59 Intake Total 794 665 4718 Output Total 2200 1100 1075 Balance -1720 -740 425 Weight 125 lb 4.8 oz 117 lb 5 oz 120 lb 8 oz 119 lb 8 oz Last Vital Signs Temp Pulse Resp BP Pulse Ox 97.5 F L 79 20 148/75 98 06/04/19 20:00 06/04/19 20:00 06/04/19 20:00 06/04/19 20:00 06/04/19 21:00 Active Medications Amlodipine Besylate (Norvasc -) 10 mg PO DAILY [facility] Last Admin: 06/05/19 09:03 Dose: 10 mg Aspirin (Ecotrin -) 81 mg PO DAILY [facility] Last Admin: 06/05/19 09:02 Dose: 81 mg Atorvastatin Calcium (Lipitor -) 40 mg PO HS [facility] Last Admin: 06/04/19 21:22 Dose: 40 mg Budesonide/Formoterol Fumarate (Symbicort 160/4.5mcg -) 2 puff IH BID [facility] Last Admin: 06/05/19 09:06 Dose: 2 puff Docusate Sodium (Colace -) 200 mg PO HS [facility] Last Admin: 06/04/19 21:22 Dose: 200 mg Doxazosin Mesylate (Cardura -) 2 mg PO AM [facility] Last Admin: 06/05/19 06:17 Dose: 2 mg Doxazosin Mesylate (Cardura -) 4 mg PO HS [facility] Last Admin: 06/04/19 23:07 Dose: 4 mg Furosemide (Lasix -) 40 mg PO BID@0600,1400 [facility] Last Admin: 06/05/19 06:16 Dose: 40 mg Guaifenesin (Robitussin -) 10 ml PO Q8H PRN PRN Reason: COUGH Last Admin: 06/04/19 21:22 Dose: 10 ml Heparin Sodium (Porcine) (Heparin -) 5,000 unit SQ TID [facility] Last Admin: 06/05/19 06:16 Dose: 5,000 unit Hydralazine HCl (Apresoline -) 50 mg PO BID@0700,2200 [facility] Last Admin: 06/05/19 06:16 Dose: 50 mg Melatonin (Melatonin) 5 mg PO ONCE PRN PRN Reason: INSOMNIA Nebivolol (Bystolic -) 10 mg PO DAILY [facility] Last Admin: 06/05/19 09:01 Dose: 10 mg Polyethylene Glycol (Miralax (For Daily Use) -) 17 gm PO DAILY [facility] Last Admin: 06/05/19 09:02 Dose: 17 gm Gen: NAD Heart: RRR Lung: Improving basilar rales Abd: soft, nontender Ext: no edema Laboratory Results - last 24 hr 06/04/19 06/04/19 06/04/19 11:29 17:06 21:08 POC Glucometer 143 140 96 06/05/19 06:15 POC Glucometer 95 A/P Acute on Chronic Diastolic Heart Failure Acute COPD Exacerbation Acute on Chronic Renal Failure UTI CAD HTN Dementia - Lasix BID - monitor urine output, creatinine - daily weights - monitor off steroids - inhaled bronchodilators - s/p antibiotics - DVT prophylaxis - D/C planning Dr Martinez
--- NOTE | 2019-06-05 11:31 | PN ---
Physical Exam: SUBJECTIVE: Patient seen and examined. No acute events overnight. Pt denies chest pain or SOB. Clinically improved since admission. OBJECTIVE: Vital Signs Period Temp Pulse Resp BP Sys/Michelle Pulse Ox Last 24 Hr 97.5 F-98.1 F 67-79 20-20 146-148/75-75 98 GENERAL: The patient is awake, alert, and fully oriented, in no acute distress. HEAD: Normal with no signs of trauma. EYES: PERRL, extraocular movements intact, sclera anicteric, conjunctiva clear. No ptosis. ENT: Ears normal, nares patent, oropharynx clear without exudates, moist mucous membranes. NECK: Trachea midline, full range of motion, supple. LUNGS: Improved breathing. Mild crackles at base. Mild wheezes throughout. Accessory muscle use. Sat at 83% on RA, 92% on 5L NC O2. HEART: Tachycardic, S1, S2 without murmur, rub or gallop. + JVD ABDOMEN: Soft, nontender, nondistended, normoactive bowel sounds, no guarding, no rebound, no hepatosplenomegaly, no masses. EXTREMITIES: 2+ pulses, warm, well-perfused, no edema. Pt appears euvolemic. NEUROLOGICAL: Cranial nerves II through XII grossly intact. Normal speech, gait not observed. PSYCH: Normal mood, normal affect. SKIN: Warm, dry, normal turgor, no rashes or lesions noted Laboratory Results - last 24 hr CBC, BMP 06/04/19 07:40 06/04/19 07:40 Active Medications Amlodipine Besylate (Norvasc -) 10 mg PO DAILY [facility] Last Admin: 06/05/19 09:03 Dose: 10 mg Aspirin (Ecotrin -) 81 mg PO DAILY [facility] Last Admin: 06/05/19 09:02 Dose: 81 mg Atorvastatin Calcium (Lipitor -) 40 mg PO HS [facility] Last Admin: 06/04/19 21:22 Dose: 40 mg Budesonide/Formoterol Fumarate (Symbicort 160/4.5mcg -) 2 puff IH BID [facility] Last Admin: 06/05/19 09:06 Dose: 2 puff Docusate Sodium (Colace -) 200 mg PO HS [facility] Last Admin: 06/04/19 21:22 Dose: 200 mg Doxazosin Mesylate (Cardura -) 2 mg PO AM [facility] Last Admin: 06/05/19 06:17 Dose: 2 mg Doxazosin Mesylate (Cardura -) 4 mg PO HS [facility] Last Admin: 06/04/19 23:07 Dose: 4 mg Furosemide (Lasix -) 40 mg PO BID@0600,1400 [facility] Last Admin: 06/05/19 06:16 Dose: 40 mg Guaifenesin (Robitussin -) 10 ml PO Q8H PRN PRN Reason: COUGH Last Admin: 06/04/19 21:22 Dose: 10 ml Heparin Sodium (Porcine) (Heparin -) 5,000 unit SQ TID [facility] Last Admin: 06/05/19 06:16 Dose: 5,000 unit Hydralazine HCl (Apresoline -) 50 mg PO BID@0700,2200 [facility] Last Admin: 06/05/19 06:16 Dose: 50 mg Melatonin (Melatonin) 5 mg PO ONCE PRN PRN Reason: INSOMNIA Nebivolol (Bystolic -) 10 mg PO DAILY [facility] Last Admin: 06/05/19 09:01 Dose: 10 mg Polyethylene Glycol (Miralax (For Daily Use) -) 17 gm PO DAILY [facility] Last Admin: 06/05/19 09:02 Dose: 17 gm ASSESSMENT/PLAN: Pt is an 84 year old female from [facility], with a PMH of diastolic heart failure, stage 3 renal failure (not on hemodialysis), [place] (drug eluting stent several years ago), L carotid endarterectomy, alzheimers who presents to the ED with 2 days of worsening SOB. #Acute respiratory failure 2/2 COPD exacerbation with CHF exacerbation CXR: mild congestive changes, pleural effusion. Unchanged from previous XR Pre/post respiratory test: 87% on RA, 90% on 2L Lasix 40mg po BID as per cardio D/c steroids as per pulm (Dr. Everett) and monitor Nebs prn and Symbicort Incentive spirometer QID Chest CT and echo not tolerated by patient #Hypertensive Urgency Resume home meds nebivolol 10mg qd, hydralazine 35g BID, cardura 2mg qd, amlodipine 10mg qd Frequent monitoring Per daughter, baseline BP 150-160 #MARCELL, likely prerenal azotemia Cr: 1.5, BUN: 42.7 (baseline Cr 1.8-2.1) Likely 2/2 to CHF exacerbation or steroid dependent Cont to monitor BMP, holding fluids for now Renal US: pt refused Nephro on board #Anxiety/agitation Ordered a sitter to be with pt throughout the day and monitor her on/off BiPAP Daughter or pt's home health manager will stay with pt overnight If pt is excessively anxious and pulling BiPAP off, assess for resp failure. See if she saturates okay NC. Can give olanzapine if necessary #UTI Can d/c abx per nephro #FEN Hold fluids for now Sodium controlled diet #DVT ppx Heparin SQ #Dispo D/c pt with O2 to short term rehab Code status : she has a living will which states " DNR/DNI" spoke to laverne Garcia over the phone who expressed she wanted her mom to be full code. Dayron at bedside agrees. Spoke to Bill, HCP, over phone ( [phone]), and he agrees to full code. Visit type - Emergency Visit Emergency Visit: No - New Patient This patient is new to me today: No - Critical Care Critical Care patient: No ATTENDING PHYSICIAN STATEMENT I saw and evaluated the patient. I reviewed the resident's note and discussed the case with the resident. I agree with the resident's findings and plan as documented. SUBJECTIVE: OBJECTIVE: ASSESSMENT AND PLAN:
[2019-06-05 12:29] VITALS: BMI 24.0
--- NOTE | 2019-06-05 15:03 | PN ---
Teaching Attending Note Name of Resident: Petrona Spencer ATTENDING PHYSICIAN STATEMENT I saw and evaluated the patient. I reviewed the resident's note and discussed the case with the resident. I agree with the resident's findings and plan as documented. SUBJECTIVE: Patient is feeling better with no acute distress. OBJECTIVE: Vital Signs Temperature 98.7 F 06/05/19 14:35 Pulse Rate 66 06/05/19 14:35 Respiratory Rate 20 06/05/19 14:35 Blood Pressure 163/65 06/05/19 14:35 O2 Sat by Pulse Oximetry (%) 90 L 06/05/19 11:36 GENERAL: The patient is awake, alert, and fully oriented, in no acute distress. HEAD: Normal with no signs of trauma. EYES: PERRL, extraocular movements intact, sclera anicteric, conjunctiva clear. ENT: Ears normal, oropharynx clear without exudates, moist mucous membranes. NECK: Trachea midline, full range of motion, supple. LUNGS: decreased BS BL , no accessory muscle use. HEART: Regular rate and rhythm, S1, S2 positive, S1s2 positive, JOSSY 2/6 , no rub or gallop. ABDOMEN: Soft, NT, ND, normoactive bowel sounds, no guarding, no rebound, no hepatosplenomegaly, no masses. EXTREMITIES: 2+ pulses, warm, well-perfused, no edema. NEUROLOGICAL: Cranial nerves II through XII grossly intact. Normal speech. PSYCH: Normal mood, normal affect. SKIN: Warm, dry, normal turgor, no rashes or lesions noted CBCD WBC 10.4 K/mm3 (4.0-10.0) H 06/04/19 07:40 RBC 2.78 M/mm3 (3.60-5.2) L 06/04/19 07:40 Hgb 8.3 GM/dL (10.7-15.3) L 06/04/19 07:40 Hct 24.8 % (32.4-45.2) L 06/04/19 07:40 MCV 89.0 fl (80-96) 06/04/19 07:40 MCHC 33.6 g/dl (32.0-36.0) 06/04/19 07:40 RDW 13.8 % (11.6-15.6) 06/04/19 07:40 Plt Count 210 K/MM3 (134-434) 06/04/19 07:40 MPV 11.0 fl (7.5-11.1) 06/04/19 07:40 CMP Sodium 143 mmol/L (136-145) 06/04/19 07:40 Potassium 3.8 mmol/L (3.5-5.1) 06/04/19 07:40 Chloride 108 mmol/L (98-107) H 06/04/19 07:40 Carbon Dioxide 30 mmol/L (21-32) 06/04/19 07:40 Anion Gap 5 MMOL/L (8-16) L 06/04/19 07:40 BUN 42.7 mg/dL (7-18) H 06/04/19 07:40 Creatinine 1.5 mg/dL (0.55-1.3) H 06/04/19 07:40 Random Glucose 97 mg/dL (74-106) 06/04/19 07:40 Calcium 7.6 mg/dL (8.5-10.1) L 06/04/19 07:40 Total Bilirubin 0.8 mg/dL (0.2-1) 06/04/19 07:40 AST 16 U/L (15-37) 06/04/19 07:40 ALT 29 U/L (13-61) 06/04/19 07:40 Alkaline Phosphatase 45 U/L (45-117) 06/04/19 07:40 Total Protein 5.7 g/dl (6.4-8.2) L 06/04/19 07:40 Albumin 2.9 g/dl (3.4-5.0) L 06/04/19 07:40 CARDIAC ENZYMES Creatine Kinase 94 U/L (26-192) 05/28/19 19:52 Troponin I 0.03 ng/ml (0.00-0.05) 05/28/19 19:52 Current Medications Generic Name Dose Route Start Last Admin Trade Name Hugo PRN Reason Stop Dose Admin Amlodipine Besylate 10 mg 05/29/19 10:00 06/05/19 09:03 Norvasc - PO 10 mg DAILY [facility] Administration Aspirin 81 mg 05/29/19 10:00 06/05/19 09:02 Ecotrin - PO 81 mg DAILY [facility] Administration Atorvastatin Calcium 40 mg 05/29/19 22:00 06/04/19 21:22 Lipitor - PO 40 mg HS [facility] Administration Budesonide/Formoterol Fumarate 2 puff 05/29/19 12:15 06/05/19 09:06 Symbicort 160/4.5mcg - IH 2 puff BID [facility] Administration Docusate Sodium 200 mg 06/03/19 22:00 06/04/19 21:22 Colace - PO 200 mg HS [facility] Administration Doxazosin Mesylate 2 mg 05/29/19 07:00 06/05/19 06:17 Cardura - PO 2 mg AM [facility] Administration Doxazosin Mesylate 4 mg 05/29/19 22:00 06/04/19 23:07 Cardura - PO 4 mg HS [facility] Administration Furosemide 40 mg 06/04/19 06:00 06/05/19 14:33 Lasix - PO 40 mg BID@0600,1400 [facility] Administration Guaifenesin 10 ml 06/04/19 18:53 06/04/19 21:22 Robitussin - PO 10 ml Q8H PRN Administration COUGH Heparin Sodium (Porcine) 5,000 unit 05/29/19 14:00 06/05/19 14:34 Heparin - SQ Not Given TID [facility] Hydralazine HCl 50 mg 06/02/19 20:30 06/05/19 06:16 Apresoline - PO 50 mg BID@0700,2200 [facility] Administration Melatonin 5 mg 05/31/19 01:40 Melatonin PO ONCE PRN INSOMNIA Nebivolol 10 mg 05/29/19 10:00 06/05/19 09:01 Bystolic - PO 10 mg DAILY [facility] Administration Polyethylene Glycol 17 gm 06/04/19 10:00 06/05/19 09:02 Miralax (For Daily Use) - PO 17 gm DAILY [facility] Administration Home Medications Medication Instructions Recorded Amlodipine Besylate 10 mg PO DAILY 05/29/19 Aspirin [Ecotrin] 81 mg PO DAILY 05/29/19 Atorvastatin Ca [Lipitor] 40 mg PO HS 05/29/19 Calcium Carb, Citrate/Vit D3 1 tab PO DAILY 05/29/19 [Calcium + D3 ER Tablet] Doxazosin Mesylate 2 mg PO AM 05/29/19 Doxazosin Mesylate 4 mg PO HS 05/29/19 Furosemide [Lasix] 40 mg PO DAILY 05/29/19 Hydralazine HCl 35 mg PO AM 05/29/19 Hydralazine HCl 35 mg PO HS 05/29/19 Nebivolol HCl [Bystolic] 10 mg PO DAILY 05/29/19 Microbiology 05/29/19 15:30 Urine - Urine Jeffery Urine Culture - Final NO GROWTH OBTAINED ASSESSMENT AND PLAN: Patient is an 84yo female with PMhx of CHF, COPD, HTN , CAD, Alzheimer, renal cysts , s/p PCI, who presented with worsening SOB. She was found in acute respiratory failure. # HTN Uncontrolled : since increased the dose of hydralazine from 35mg to 50mg-- > 75mg tid. will continue to monitor # Acute respiratory failure due to COPD exacerbation with CHF exacerbation. improving but saturation on 3 liter is 92%,and 86% on room air , will repeat pre and post. # Acute diastolic CHF exacerbation: s/p IV lasix , continue with oral lasix 40mg bid in am # Acute COPd exacerbation: continue neb.treatment # MARCELL on CKD IV: likely prerenal azotemia due to CHF # Acute UTI: s/p ceftriaxone . urine cx neg but Abx were given before cx was sent DVT px: SQ heparin Full code. possible dc back to independent living if medically stable in am or to rehab
[2019-06-05 20:10] VITALS: BP 153/50; PULSE 62; TEMP 97.7
[2019-06-05] MEDS: DOXAZOSIN MESYLATE 4 MG TABLET PO SCH (21:41)
[2019-06-05] MEDS: ATORVASTATIN CA 40 MG TABLET (FP) PO SCH (21:42)
[2019-06-05] MEDS: DOCUSATE SODIUM 100 MG CAPSULE (FP) PO SCH (21:42)
[2019-06-06] MEDS ORDERED: PT OWN MED DRAWER 7, Y5N ONE ×2 (06:01→11:11)
[2019-06-06] MEDS: hydrALAZINE HCL 25 MG TABLET (FP) PO SCH (06:32)
[2019-06-06] MEDS: FUROSEMIDE 40 MG TABLET (FP) PO SCH (06:33)
[2019-06-06] MEDS: DOXAZOSIN MESYLATE 2 MG TABLET (FP) PO SCH (06:33)
[2019-06-06] MEDS: HEPARIN NA (PORCINE) 5,000 UNITS/ML 1ML VIAL SQ SCH (06:33)
[2019-06-06 07:15] LABS: HEMATOCRIT 26.5 % (32.4-45.2); HEMOGLOBIN 8.8 GM/dL (10.7-15.3); MCHC 33.3 g/dl (32.0-36.0); MEAN CELL VOLUME 90.1 fl (80-96); MEAN PLT VOLUME 10.7 fl (7.5-11.1); PLATELET COUNT 225 K/MM3 (134-434); RBC 2.94 M/mm3 (3.60-5.2); RDW 14.3 % (11.6-15.6); WHITE BLOOD COUNT 11.5 K/mm3 (4.0-10.0)
[2019-06-06 07:26] LABS: ALBUMIN 3.1 g/dl (3.4-5.0); BILIRUBIN,TOTAL 0.7 mg/dL (0.2-1); CALCIUM 8.7 mg/dL (8.5-10.1); CREATININE 1.7 mg/dL (0.55-1.3); TOT PROT 5.9 g/dl (6.4-8.2)
[2019-06-06] MEDS: amLODIPine BESYLATE 10 MG TABLET (FP) PO SCH (11:15)
[2019-06-06] MEDS: NEBIVOLOL 10 MG TABLET (FP) PO SCH (11:16)
[2019-06-06] MEDS: ASPIRIN COATED 81 MG TABLET.EC PO SCH (11:16)
[2019-06-06] MEDS: POLYETHYLENE GLYCOL 3350 119 GM BTL PO SCH (11:16)
[2019-06-06] MEDS: BUDESONIDE/FORMETEROL FUMARATE 160/4.5 mcg INHALER IH SCH (11:17)
--- NOTE | 2019-06-06 13:20 | DS ---
Physical Exam: SUBJECTIVE: Patient seen and examined. No acute events overnight. OBJECTIVE: Vital Signs Period Temp Pulse Resp BP Sys/Michelle Pulse Ox Last 24 Hr 97.7 F-98.7 F 62-66 20-20 153-163/50-65 90-90 PHYSICAL EXAM GENERAL: The patient is awake, alert, and fully oriented, in no acute distress. HEAD: Normal with no signs of trauma. EYES: PERRL, extraocular movements intact, sclera anicteric, conjunctiva clear. No ptosis. ENT: Ears normal, nares patent, oropharynx clear without exudates, moist mucous membranes. NECK: Trachea midline, full range of motion, supple. LUNGS: Improved breathing. Mild crackles at base. Mild wheezes throughout. Accessory muscle use. Sat at 83% on RA, 92% on 5L NC O2. HEART: Tachycardic, S1, S2 without murmur, rub or gallop. + JVD ABDOMEN: Soft, nontender, nondistended, normoactive bowel sounds, no guarding, no rebound, no hepatosplenomegaly, no masses. EXTREMITIES: 2+ pulses, warm, well-perfused, no edema. Pt appears euvolemic. NEUROLOGICAL: Cranial nerves II through XII grossly intact. Normal speech, gait not observed. PSYCH: Normal mood, normal affect. SKIN: Warm, dry, normal turgor, no rashes or lesions noted LABS Laboratory Results - last 24 hr CBC, BMP 06/06/19 06:30 06/06/19 06:30 HOSPITAL COURSE: Date of Admission:05/28/19 Pt is an 84 year old female from [facility], with a PMH of diastolic heart failure, stage 3 renal failure (not on hemodialysis), [place] (drug eluting stent several years ago), L carotid endarterectomy, alzheimers who was admitted for acute respiratory failure 2/2 CHF exacerbation. She was treated with IV Lasix, steroids, nebs, and symbicort. Pt was initially placed on BiPAP machine for first 3 days of admission. She was then transferred to Nasal Cannula 3-5L and consistently satted >92%. CXR on admission progressive congestive changes and upper lung infiltrates. Chest CT and echo were recommended, but pt did not tolerate due to agitation and anxiety. Pt had a UTI on admission and was treated with a complete course of Ceftriaxone. Pt was monitored closely by cardio, pulm, and nephro during admission. She will be d/c' ed with 40mg lasix BID po and transferred to Rehab with home O2. Pt's vitals are stable, she is clinically improved, and is stable for discharge. CXR: progressive congestive changes with pleural effusion. Date of Discharge: 06/06/19 Minutes to complete discharge: 45 Discharge Summary Reason For Visit: ACUTE ON CHRONIC CONGESTIVE HEART FAILURE Current Active Problems ASHD (arteriosclerotic heart disease) (Chronic) Myocardial infarction, old (Chronic) Condition: Stable - Instructions Diet, Activity, Other Instructions: You were admitted to the hospital for difficulty breathing due to worsening of your congestive heart failure. We treated you with oxygen, steroids, and lasix and your breathing improved. We are discharging you to Rehab. Facility with Nasal Cannula Oxygen. When you arrived at the hospital, you had a urinary tract infection. We treated you with antibiotics for 5 days. Your urinary tract infection is resolving. We increased your Lasix medication to better control your congestive heart failure. You should take 40mg Lasix by mouth twice a day. You should resume all other home medications as prescribed. You should follow up with your primary care provider and your environmental property assessor, Dr. Concepcion, in one week. Return to the emergency department if you experience difficulty breathing, chest pain, abdominal pain, nausea, vomiting, or worsening of any symptoms. Referrals: Niranjan Concepcion MD [Staff Physician] - 1 Week Disposition: [facility] - Home Medications Comprehensive Discharge Medication List: Ambulatory Orders Amlodipine Besylate 10 mg PO DAILY 05/29/19 Aspirin [Ecotrin] 81 mg PO DAILY 05/29/19 Atorvastatin Ca [Lipitor] 40 mg PO HS 05/29/19 Calcium Carb, Citrate/Vit D3 [Calcium + D3 ER Tablet] 1 tab PO DAILY 05/29/19 Doxazosin Mesylate 2 mg PO AM 05/29/19 Doxazosin Mesylate 4 mg PO HS 05/29/19 Nebivolol HCl [Bystolic] 10 mg PO DAILY 05/29/19 Budesonide/Formeterol Fumarate [SYMBICORT 160/4.5mcg -] 2 puff IH BID inhaler 06/06/19 Docusate Sodium [Colace -] 200 mg PO HS capsule 06/06/19 Furosemide [Lasix -] 40 mg PO BID@0600,1400 tablet 06/06/19 Guaifenesin [Robitussin -] 10 ml PO Q8H PRN cup 06/06/19 Heparin - 5,000 unit SQ TID vial 06/06/19 Melatonin 5 mg PO ONCE PRN tab 06/06/19 Polyethylene Glycol 3350 [Miralax 119 gm Btl -] 17 gm PO DAILY bottle 06/06/19 hydrALAZINE HCL [Apresoline -] 50 mg PO BID@0700,2200 tablet 06/06/19 This patient is new to me today: No Emergency Visit: No Critical Care patient: No - Discharge Referral Referred to [facility] No ATTENDING PHYSICIAN STATEMENT I saw and evaluated the patient. I reviewed the resident's note and discussed the case with the resident. I agree with the resident's findings and plan as documented. SUBJECTIVE: OBJECTIVE: ASSESSMENT AND PLAN:
--- NOTE | 2019-06-06 14:47 | PN ---
Teaching Attending Note Name of Resident: Petrona Spencer ATTENDING PHYSICIAN STATEMENT I saw and evaluated the patient. I reviewed the resident's note and discussed the case with the resident. I agree with the resident's findings and plan as documented. SUBJECTIVE: Patient is feeling better with no acute distress, saturation 87% on rm air , above 90% on oxygen , daughter at bedside. Feels 100% better stated. OBJECTIVE: Vital Signs Temperature 97.7 F 06/05/19 20:09 Pulse Rate 62 06/05/19 20:09 Respiratory Rate 20 06/06/19 09:00 Blood Pressure 153/50 L 06/05/19 20:09 O2 Sat by Pulse Oximetry (%) 90 L 06/06/19 09:00 GENERAL: The patient is awake, alert, and fully oriented, in no acute distress. On 2liter oxygen , feels better HEAD: Normal with no signs of trauma. EYES: PERRL, extraocular movements intact, sclera anicteric, conjunctiva clear. ENT: Ears normal, oropharynx clear without exudates, moist mucous membranes. NECK: Trachea midline, full range of motion, supple. LUNGS: decreased BS BL , no accessory muscle use. HEART: Regular rate and rhythm, S1, S2 positive, S1s2 positive, JOSSY 2/6 , no rub or gallop. ABDOMEN: Soft, NT, ND, normoactive bowel sounds, no guarding, no rebound, no hepatosplenomegaly, no masses. EXTREMITIES: 2+ pulses, warm, well-perfused, no edema. NEUROLOGICAL: Cranial nerves II through XII grossly intact. Normal speech. PSYCH: Normal mood, normal affect. SKIN: Warm, dry, normal turgor, no rashes or lesions noted CBCD WBC 11.5 K/mm3 (4.0-10.0) H 06/06/19 06:30 RBC 2.94 M/mm3 (3.60-5.2) L 06/06/19 06:30 Hgb 8.8 GM/dL (10.7-15.3) L 06/06/19 06:30 Hct 26.5 % (32.4-45.2) L 06/06/19 06:30 MCV 90.1 fl (80-96) 06/06/19 06:30 MCHC 33.3 g/dl (32.0-36.0) 06/06/19 06:30 RDW 14.3 % (11.6-15.6) 06/06/19 06:30 Plt Count 225 K/MM3 (134-434) 06/06/19 06:30 MPV 10.7 fl (7.5-11.1) 06/06/19 06:30 CMP Sodium 142 mmol/L (136-145) 06/06/19 06:30 Potassium 4.0 mmol/L (3.5-5.1) 06/06/19 06:30 Chloride 107 mmol/L (98-107) 06/06/19 06:30 Carbon Dioxide 28 mmol/L (21-32) 06/06/19 06:30 Anion Gap 8 MMOL/L (8-16) 06/06/19 06:30 BUN 33.0 mg/dL (7-18) H 06/06/19 06:30 Creatinine 1.7 mg/dL (0.55-1.3) H 06/06/19 06:30 Random Glucose 94 mg/dL (74-106) 06/06/19 06:30 Calcium 8.7 mg/dL (8.5-10.1) 06/06/19 06:30 Total Bilirubin 0.7 mg/dL (0.2-1) 06/06/19 06:30 AST 14 U/L (15-37) L 06/06/19 06:30 ALT 22 U/L (13-61) 06/06/19 06:30 Alkaline Phosphatase 45 U/L (45-117) 06/06/19 06:30 Total Protein 5.9 g/dl (6.4-8.2) L 06/06/19 06:30 Albumin 3.1 g/dl (3.4-5.0) L 06/06/19 06:30 CARDIAC ENZYMES Creatine Kinase 94 U/L (26-192) 05/28/19 19:52 Troponin I 0.03 ng/ml (0.00-0.05) 05/28/19 19:52 Home Medications Medication Instructions Recorded Amlodipine Besylate 10 mg PO DAILY 05/29/19 Aspirin [Ecotrin] 81 mg PO DAILY 05/29/19 Atorvastatin Ca [Lipitor] 40 mg PO HS 05/29/19 Calcium Carb, Citrate/Vit D3 1 tab PO DAILY 05/29/19 [Calcium + D3 ER Tablet] Doxazosin Mesylate 2 mg PO AM 05/29/19 Doxazosin Mesylate 4 mg PO HS 05/29/19 Nebivolol HCl [Bystolic] 10 mg PO DAILY 05/29/19 Budesonide/Formeterol Fumarate 2 puff IH BID inhaler 06/06/19 [SYMBICORT 160/4.5mcg -] Docusate Sodium [Colace -] 200 mg PO HS capsule 06/06/19 Furosemide [Lasix -] 40 mg PO BID@0600,1400 tablet 06/06/19 Guaifenesin [Robitussin -] 10 ml PO Q8H PRN cup 06/06/19 Heparin - 5,000 unit SQ TID vial 06/06/19 Melatonin 5 mg PO ONCE PRN tab 06/06/19 Polyethylene Glycol 3350 [Miralax 17 gm PO DAILY bottle 06/06/19 119 gm Btl -] hydrALAZINE HCL [Apresoline -] 50 mg PO BID@0700,2200 tablet 06/06/19 05/29/19 15:30 Urine - Urine Jeffery Urine Culture - Final NO GROWTH OBTAINED ASSESSMENT AND PLAN: Patient is an 84yo female with PMhx of CHF, COPD, HTN , CAD, Alzheimer, renal cysts , s/p PCI, who presented with worsening SOB. She was found in acute respiratory failure. # HTN Uncontrolled : since increased the dose of hydralazine from 35mg to 50mg bid. will continue to monitor # Acute respiratory failure due to COPD exacerbation with CHF exacerbation. improving but saturation on 2 liter is 92%,and 87% on room air , pre and post. # Acute diastolic CHF exacerbation: s/p IV lasix , continue with oral lasix 40mg bid. # Acute COPd exacerbation: continue neb.treatment # MARCELL on CKD IV: likely prerenal azotemia due to CHF, improving # Acute UTI: s/p ceftriaxone . urine cx neg but Abx were given before cx was sent DVT px: SQ heparin Full code. discharge patient to rehab, went to [facility].
== END 2019-06-06 13:52 | DRG 682 ==
LOC: JER 19:09 → JERBED 21:35 → J8W 05-29 02:12
PROVIDERS: ADMIT Internal Medicine; ATTEND Internal Medicine
DX: N17.9 Acute kidney failure, unspecified (principal); I50.33 Acute on chronic diastolic (congestive) heart failure; J96.00 Acute respiratory failure, unspecified whether with hypoxia or hypercapnia; I13.0 Hypertensive heart and chronic kidney disease with heart failure and stage 1 through stage 4 chronic kidney disease, or unspecified chronic kidney disease; N39.0 Urinary tract infection, site not specified; G30.9 Alzheimer's disease, unspecified; F02.80 Dementia in other diseases classified elsewhere, unspecified severity, without behavioral disturbance, psychotic disturbance, mood disturbance, and anxiety; I16.0 Hypertensive urgency; N28.1 Cyst of kidney, acquired; I25.2 Old myocardial infarction; I25.10 Atherosclerotic heart disease of native coronary artery without angina pectoris; D72.829 Elevated white blood cell count, unspecified; F41.9 Anxiety disorder, unspecified; I45.81 Long QT syndrome; D64.9 Anemia, unspecified; R45.1 Restlessness and agitation; Z95.5 Presence of coronary angioplasty implant and graft; N18.4 Chronic kidney disease, stage 4 (severe)
CPT/HCPCS: 36415; 36600; 71045-TC-FY; 80048; 80053; 81003; 82550; 82565; 82607; 82728; 82803; 82962; 83540; 83550; 83735; 83880; 84100; 84156; 84300; 84443; 84484; 84540; 85025; 85027; 87086; 93005; 93010; 94010; 94640; 94660; 94761; 97116-GP; 97162-GP; 99284-25; J1644

== ENCOUNTER 2019-08-24 16:41 | Inpatient (IN) | payer OTHER, BC ==
--- NOTE | 2019-08-24 17:48 | PDOC ---
History of Present Illness - General Chief Complaint: Lethargy Stated Complaint: Blood Pressure Problem Time Seen by Provider: 08/24/19 17:37 History Source: Patient, Family Exam Limitations: Dementia - History of Present Illness Initial Comments: 08/24/19 17:48 Symone Terrazas is an 84F from [facility] with PMH Alzheimers dementia, diastolic HF, TAVR, COPD (50 year smoker, not on home O2), Stage III renal failure, CAD s/p stent presenting with one week of weakness. Patient has memory problems related to Alzheimers, history obtained from both patient and daughter. Daughter reports patient is normally high functioning and able to ambulate unassisted at home. For last week has been unable to get out of bed without help , also complaining of pain in her right foot and thighs for the last 2 weeks. Has progressively looked worse over the last week, today nurse at [facility] and patient herself both wanted to go to hospital. Has history of plantar fasciitis in her feet but otherwise no falls or trauma. Has not complained of a fever, headache, nausea, vomiting, chest pain, SOB, abd pain, urinary issues, constipation, diarrhea. Eating and drinking without issue but small amounts. Sees Dr. Concepcion for cards, has increased Lasix to 80 bid, last labs Thursday and . No known thyroid issues. HF does not manifest as LE edema, but gets fluid in legs and lungs. Last Echo done a few months ago, unsure of EF. Alzheimers getting worse as of late, has known . Patient herself reports pain the first two toes of her right foot on the tops. Says she is tired, cold, and that her legs hurt. Denies chest pain, SOB, abd pain, headache. Past History - Past Medical History Allergies/Adverse Reactions: Allergies Allergy/AdvReac Type Severity Reaction Status Date / Time erythromycin base Allergy Unknown Verified 05/28/19 20:18 Penicillins Allergy Unknown Verified 05/28/19 20:18 Home Medications: Ambulatory Orders Amlodipine Besylate 10 mg PO DAILY 05/29/19 Aspirin [Ecotrin] 81 mg PO DAILY 05/29/19 Atorvastatin Ca [Lipitor] 40 mg PO HS 05/29/19 Calcium Carb, Citrate/Vit D3 [Calcium + D3 ER Tablet] 1 tab PO DAILY 05/29/19 Doxazosin Mesylate 2 mg PO AM 05/29/19 Doxazosin Mesylate 4 mg PO HS 05/29/19 Nebivolol HCl [Bystolic] 10 mg PO DAILY 05/29/19 Budesonide/Formeterol Fumarate [SYMBICORT 160/4.5mcg -] 2 puff IH BID inhaler 06/06/19 Docusate Sodium [Colace -] 200 mg PO HS capsule 06/06/19 Guaifenesin [Robitussin -] 10 ml PO Q8H PRN cup 06/06/19 Melatonin 5 mg PO ONCE PRN tab 06/06/19 Polyethylene Glycol 3350 [Miralax 119 gm Btl -] 17 gm PO DAILY bottle 06/06/19 Furosemide [Lasix -] 80 mg PO BID@0600,1400 08/24/19 Potassium Chloride 30 meq PO BID 08/24/19 hydrALAZINE HCL [Apresoline -] 35 mg PO BID@0700,2200 08/24/19 Anemia: No Cancer: No Cardiac Disorders: Yes CVA: No COPD: No CHF: Yes (Diastolic CHF) DVT: No Dementia: Yes Dialysis: No HTN: Yes - Surgical History Cardiac Surgery: Yes (Drug eluting stent placement s/p PR) Cholecystectomy: Yes - Immunization History Immunization Up to Date: Yes - Psycho Social/Smoking Cessation Hx Smoking History: Never smoked Have you smoked in the past 12 months: No Information on smoking cessation initiated: No Hx Alcohol Use: No Drug/Substance Use Hx: No Review of Systems - Review of Systems Able to Perform ROS?: Yes Comments:: 08/25/19 19:21 mild dementia but A/O to person, place, but not time Constitutional: Yes: Weakness. No: Chills, Fever HEENTM: No: Blurred Vision, Hearing Loss Respiratory: No: Cough, Shortness of Breath, Wheezing Cardiac (ROS): No: Chest Pain, Lightheadedness, Palpitations, Syncope ABD/GI: No: Constipated, Diarrhea, Nausea, Poor Appetite, Vomiting : No: Symptoms Reported Musculoskeletal: Yes: Other (pain to 1st and 2nd toes on R foot, feet cold) Integumentary: No: Symptoms Reported Neurological: No: Headache, Numbness, Paresthesia Endocrine: No: Symptoms Reported Hematologic/Lymphatic: No: Symptoms Reported All Other Systems: Reviewed and Negative *Physical Exam - Vital Signs Last Vital Signs Temp Pulse Resp BP Pulse Ox 98.2 F 65 18 187/81 H 97 08/24/19 17:26 08/24/19 17:26 08/24/19 17:26 08/24/19 17:26 08/24/19 17:26 - Physical Exam General Appearance: Yes: Nourished, Appropriately Dressed, Other (Sitting upright in bed, in no acute distress, wearing a wig and covered in blankets.). No: Apparent Distress HEENT: positive: EOMI, FRANCOISE, Normal Voice, Pharynx Normal. negative: Scleral Icterus (R), Scleral Icterus (L), Pharyngeal Erythema, Tonsillar Exudate, Tonsillar Erythema, Nasal Congestion Neck: positive: Trachea midline, Normal Thyroid, Supple. negative: Tender, Decreased range of motion, Lymphadenopathy (R), Lymphadenopathy (L) Respiratory/Chest: positive: Lungs Clear, Normal Breath Sounds. negative: Respiratory Distress, Accessory Muscle Use, Crackles, Rales, Rhonchi Cardiovascular: positive: Regular Rhythm, Regular Rate. negative: Murmur Vascular Pulses: Dorsalis-Pedis (R): 2+, Doralis-Pedis (L): 2+ Gastrointestinal/Abdominal: positive: Normal Bowel Sounds, Flat, Soft. negative : Tender, Organomegaly Musculoskeletal: positive: Normal Inspection. negative: CVA Tenderness Extremity: positive: Normal Capillary Refill, Normal Inspection, Normal Range of Motion, Pelvis Stable, Other (Examination of R foot shows no evidence of bony deformity, rash, erythema, swelling of toes. Sensation intact to LT, moves toes spontaneously.). negative: Tender Integumentary: positive: Normal Color, Dry, Warm. negative: Cyanotic, Cold, Clammy, Diaphoresis Neurologic: positive: Alert (alert and oriented to person and place, has issues with short term recall and forgets what she has said, complains of, or done minutes prior), Normal Mood/Affect, Normal Response, Confused. negative: Motor Strength 5/5 (4/5 all flexor and extensor muscle groups) ED Treatment Course - LABORATORY CBC & Chemistry Diagram: 08/25/19 06:30 08/25/19 06:30 Medical Decision Making - Medical Decision Making 08/24/19 17:48 Symone Terrazas is an 84F from [facility] with PMH Alzheimers dementia, diastolic HF, TAVR, COPD (50 year smoker, not on home O2), Stage III renal failure, CAD s/p stent presenting with one week of weakness. Patient presentation of weakness is worrisome for a multitude of issues, including CHF exacerbation, COPD exacerbation and hypoxia, anemia, arrhythmia such as Afib, over medication, electrolyte imbalance, infectious process such as UTI/PNA, hypothyroidism, nephrotic syndrome, malnutrition/dehydration, intracranial process, and worsening of Alzheimers. Need to evaluate broadly via: ECG CXR CMP CBC CP BNP Mag Phos UA/UC CT head for evaluation of AMS and weakness 08/24/19 18:40 ECG shows sinus rhythm with PACs, LAFB, T wave inversions in I and aVL, HR 63, QRS 92, QTc 478 08/24/19 19:39 CBC WNL, no anemia noted. Signed out to Dr. Barbosa. Plan to evaluate with labs/UA/CT/CXR and likely admit for what is likely CHF exacerbation or infectious process. Discharge - Discharge Information Problems reviewed: Yes Clinical Impression/Diagnosis: Elevated troponin UTI (urinary tract infection) Qualifiers: Urinary tract infection type: acute cystitis Hematuria presence: without hematuria Qualified Code(s): N30.00 - Acute cystitis without hematuria CHF exacerbation Qualifiers: Heart failure type: unspecified Qualified Code(s): I50.9 - Heart failure, unspecified Condition: Good - Follow up/Referral - Patient Discharge Instructions - Post Discharge Activity
--- NOTE | 2019-08-24 19:07 | PDOC ---
*Physical Exam - Vital Signs Last Vital Signs Temp Pulse Resp BP Pulse Ox 98.2 F 65 18 187/81 H 97 08/24/19 17:26 08/24/19 17:26 08/24/19 17:26 08/24/19 17:26 08/24/19 17:26 ED Treatment Course - LABORATORY CBC & Chemistry Diagram: 08/24/19 19:30 08/24/19 19:30 Medical Decision Making - Medical Decision Making 08/24/19 19:07 BNP 6300 CHF exacerbation, given 80 lasix elevated trop 0.07 - give [address] did not show acute bleed/infarct CXR shows clear lung lobo ECG shows sinus rhythm with PACs, LAFB, T wave inversions in I and aVL, HR 63, QTc 478, unchanged elevated trop 0.07 - given 324 aspirin, elevated Cr 3.2, UA shows 2+ leuk est, 600 bacteria - UTI, given 500 levaquin (penicillin allergy) --- Signed out from day team. Symone Terrazas is an 84F from [facility] with PMH Alzheimers dementia, diastolic HF, TAVR, COPD (50 year smoker, not on home O2), Stage III renal failure, CAD s/p stent presenting with one week of weakness and altered mental status. UTI diagnosed on UA with elevated Cr 3.2, given 500 levaquin. Pt also has evidence of CHF exacerbation with distended abdomen, elevated BNP- given 80 lasix per cardiology. Elevated trop 0.07 despite unchanged EKG and no cardiac symptoms - given aspirin. Head CT did not show acute bleed/infarct Consulted Dr Cullen count room clerk regarding elevated trop - advised to give 80 IV lasix and ASA after head CT neg Admitted to tele Dr Amin for UTI, CHF exacerbation, elevated troponin. Discharge - Discharge Information Problems reviewed: Yes Clinical Impression/Diagnosis: Elevated troponin UTI (urinary tract infection) Qualifiers: Urinary tract infection type: acute cystitis Hematuria presence: without hematuria Qualified Code(s): N30.00 - Acute cystitis without hematuria CHF exacerbation Qualifiers: Heart failure type: unspecified Qualified Code(s): I50.9 - Heart failure, unspecified Condition: Good - Follow up/Referral - Patient Discharge Instructions - Post Discharge Activity
--- NOTE | 2019-08-24 19:28 | PDOC ---
Documentation entered by Mellisa Monson SCRIBE, acting as scribe for Christie Bhatia DO. Christie Bhatia, DO: This documentation has been prepared by the Iona medel Adrianna, SCRIBE, under my direction and personally reviewed by me in its entirety. I confirm that the documentation accurately reflects all work, treatment, procedures, and medical decision making performed by me. Attending Attestation - Resident Resident Name: Franco Hilliard - ED Attending Attestation I have performed the following: I have examined & evaluated the patient, The case was reviewed & discussed with the resident, I agree w/resident's findings & plan, Exceptions are as noted - HPI HPI: The patient is an 84 year old female, with a significant PMH of Alzheimers, diastolic heart failure, COPD, stage 4 renal failure (not on hemodialysis), and ME (stent x1), who presents to the ED BIBA from [facility] for evaluation of generalized weakness for one week. As per daughter at bedside, the patient is typically ambulatory but has not been getting out of bed over the past week. NM staff aid notes the patient has been more tired and weak than normal. Allergies: Erythromycin, penicillins Surgical History: Drug eluting stent placement s/p ME, L Carotid endarterectomy , Bilateral femoral stenting Social History: [facility] resident. Denies EtOH, tobacco, or illicit drug use PCP: Dr. Thurman Milk Inspector: Dr. Concepcion - Physicial Exam PE: Constitutional: +Lethargic. Awake, alert. No acute distress. Head: Normocephalic. Atraumatic Eyes: PERRL. EOMI. Conjunctivae are not pale. ENT: Mucous membranes are moist and intact. Posterior pharynx without exudates or erythema. Uvula midline. Neck: Supple. Full ROM. No lymphadenopathy. Cardiovascular: Regular rate. Regular rhythm. S1, S2 regular. Distal pulses are 2+ and symmetric. Pulmonary/Chest: No evidence of respiratory distress. Clear to auscultation bilaterally No wheezing, rales or rhonchi. Abdominal: Soft and non-distended. There is no tenderness. No rebound, guarding or rigidity. No organomegaly. No palpable masses. Good bowel sounds. Back: No CVA tenderness. Musculoskeletal: No edema. No cyanosis. No clubbing. Full range of motion in all extremities. Nocalf tenderness. Radial/pedal pulses are intact and 2+ bilaterally Skin: Skin is warm and dry. No petechiae. No purpura. Neurological: +Some memory loss. Cranial nerves II-XII are grossly intact. Normal speech. Strength is grossly symmetric. No sensory deficits. Psychiatric: Good eye contact. Normal interaction, affect and behavior. - Medical Decision Making 08/24/19 19:19 I, Dr. Christie Bhatia, DO, attest that this document has been prepared under my direction and personally reviewed by me in its entirety. I further attest, that it accurately reflects all work, treatment, procedures and medical decision -making performed by me. a/p: 84yo female from [facility] for eval of generalized weakness for about a week -no cp/sob -no abd pain, no dysuria -pt lethargic on exam, but no acute neuro findings -pt is a poor historian with hx of alzheimers -pt with diastolic dysfunction, chf, htn -will send labs, ua, cxr, head ct 08/24/19 20:22 cxr clear trop elevated bnp [address] Concepcion 08/24/19 20:23 pt with MARCELL on CKD 08/24/19 20:[address] Cullen from Cards - will give iv lasix and asa after head ct neg 08/24/19 20:35 pt will need admission 08/24/19 22:30 pt with UTI head ct without acute findings 08/24/19 22:58 resident discussed the case with Dr. Walker who accepts pt to service Heart Score/ECG Review - ECG Intrepretation Comment:: 08/24/19 19:18 sinus at 63, L viera axis, LAFB, q waves septally which are age indeterminate, poor r wave progression, t wave inversions lateral leads which are unchanged from prior ekg in may 2019
[2019-08-24 19:37] LABS: BASO % 0.3 % (0-2.0); EOS % 1.4 % (0-4.5); HEMATOCRIT 35.3 % (32.4-45.2); HEMOGLOBIN 11.8 GM/dL (10.7-15.3); LYMPH % 7.9 % (8-40); MCH 30.8 pg (25.7-33.7); MCHC 33.4 g/dl (32.0-36.0); MEAN CELL VOLUME 92.3 fl (80-96); MEAN PLT VOLUME 10.9 fl (7.5-11.1); MONO % 6.2 % (3.8-10.2); NEUT % 84.2 % (42.8-82.8); PLATELET COUNT 158 K/MM3 (134-434); RBC 3.83 M/mm3 (3.60-5.2); RDW 14.6 % (11.6-15.6); WHITE BLOOD COUNT 9.3 K/mm3 (4.0-10.0)
[2019-08-24 20:00] LABS: MAGNESIUM 2.5 mg/dL (1.8-2.4); PHOSPHOROUS 3.8 mg/dL (2.5-4.9)
[2019-08-24 20:03] LABS: ALBUMIN 3.6 g/dl (3.4-5.0); BILIRUBIN,TOTAL 0.4 mg/dL (0.2-1); BLOOD UREA NITROGEN 73.2 mg/dL (7-18); CALCIUM 9.8 mg/dL (8.5-10.1); CREATININE 3.2 mg/dL (0.55-1.3); POTASSIUM 3.8 mmol/L (3.5-5.1); TOT PROT 6.4 g/dl (6.4-8.2)
[2019-08-24 20:12] LABS: N-TERMINAL BNP 6322.8 pg/ml (5-450)
[2019-08-24] MEDS ORDERED: FUROSEMIDE 40 MG/4 ML INJECTABLE VIAL IVPUSH ONE (20:34)
[2019-08-24] MEDS ORDERED: FUROSEMIDE 40 MG/4 ML INJECTABLE VIAL ONE (21:35)
[2019-08-24 22:12] LABS: EPI CELLS 3.2 /HPF (0-5/HPF); HYALINE CASTS 2 /lpf (0-8); URINE APPEARANCE CLOUDY; URINE BACTERIA 601.8 /hpf (NEGATIVE); URINE BILIRUBIN NEGATIVE (NEGATIVE); URINE COLOR YELLOW; URINE GLUCOSE (UA) NEGATIVE (NEGATIVE); URINE KETONE NEGATIVE (NEGATIVE); URINE LEUK ESTERASE 2+ (NEGATIVE); URINE NITRITE NEGATIVE (NEGATIVE); URINE PROTEIN 1+ (NEGATIVE); URINE RBC 2 /hpf (0-4); URINE UROBILINOGEN 0.2 mg/dL (0.2-1.0); URINE WBC 7 /hpf (0-5)
[2019-08-24] MEDS ORDERED: ASPIRIN 81 MG CHEWABLE TABLETS PO ONE (22:30)
[2019-08-24 23:00] LABS: URINE CRYSTALS NONE SEEN /hpf
[2019-08-24] MEDS ORDERED: ASPIRIN 81 MG CHEWABLE TABLETS ONE (23:05)
[2019-08-24] MEDS ORDERED: guaiFENesin 200 MG/10 ML 10 ML UNIT-DOSE CUPS PO PRN (23:35)
[2019-08-24] MEDS ORDERED: MELATONIN 5 MG TABLETS PO PRN (23:35)
--- NOTE | 2019-08-25 00:01 | HP ---
Admitting History and Physical - Admission Chief Complaint: altered mental status History of Present Illness: The patient is an 84 year old female, with a significant PMH of Alzheimers, diastolic heart failure, COPD, stage 4 renal failure (not on hemodialysis), and LA (stent x1), who presents to the ED BIBA from [facility] for evaluation of generalized weakness for one week. As per daughter at bedside, the patient is typically ambulatory but has not been getting out of bed over the past week. MD staff aid notes the patient has been more tired and weak than normal. Allergies: Erythromycin, penicillins Surgical History: Drug eluting stent placement s/p LA, L Carotid endarterectomy , Bilateral femoral stenting Social History: [facility] resident. Denies EtOH, tobacco, or illicit drug use PCP: Dr. Thurman Centrifugal Casting Machine Operator: Dr. 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 No: O2 Dependent Renal/: Yes: Renal Failure, Renal Inusuff Reproductive: Yes: Postmenopausal Heme/Onc: Yes: Anemia - Smoking History Smoking history: Never smoked Have you smoked in the past 12 months: No - Alcohol/Substance Use Hx Alcohol Use: No - Social History Usual Living Arrangement: Yes: Assisted Living ADL: Support Services History of Recent Travel: No Home Medications - Allergies Allergies/Adverse Reactions: Allergies Allergy/AdvReac Type Severity Reaction Status Date / Time erythromycin base Allergy Unknown Verified 05/28/19 20:18 Penicillins Allergy Unknown Verified 05/28/19 20:18 - Home Medications Home Medications: Ambulatory Orders Amlodipine Besylate 10 mg PO DAILY 05/29/19 Aspirin [Ecotrin] 81 mg PO DAILY 05/29/19 Atorvastatin Ca [Lipitor] 40 mg PO HS 05/29/19 Calcium Carb, Citrate/Vit D3 [Calcium + D3 ER Tablet] 1 tab PO DAILY 05/29/19 Doxazosin Mesylate 2 mg PO AM 05/29/19 Doxazosin Mesylate 4 mg PO HS 05/29/19 Nebivolol HCl [Bystolic] 10 mg PO DAILY 05/29/19 Budesonide/Formeterol Fumarate [SYMBICORT 160/4.5mcg -] 2 puff IH BID inhaler 06/06/19 Docusate Sodium [Colace -] 200 mg PO HS capsule 06/06/19 Guaifenesin [Robitussin -] 10 ml PO Q8H PRN cup 06/06/19 Melatonin 5 mg PO ONCE PRN tab 06/06/19 Polyethylene Glycol 3350 [Miralax 119 gm Btl -] 17 gm PO DAILY bottle 06/06/19 Potassium Chloride 30 meq PO BID 08/24/19 hydrALAZINE HCL [Apresoline -] 35 mg PO BID@0700,2200 08/24/19 Acetaminophen [Tylenol .Regular Strength -] 650 mg PO Q4H PRN tablet 08/26/19 Albuterol 2.5/Ipratropium 0.5 [Duoneb -] 1 amp NEB RQID amp 08/26/19 Furosemide [Lasix -] 80 mg PO BID@0600,1400 tablet 08/26/19 Polyethylene Glycol 3350 [Miralax 119 gm Btl -] 17 gm PO DAILY bottle 08/26/19 Review of Systems Unable to obtain ROS, reason: dementia Physical Examination Vital Signs: Vital Signs Temperature 98.2 F 08/24/19 17:26 Pulse Rate 62 08/24/19 19:00 Respiratory Rate 14 08/24/19 19:00 Blood Pressure 158/45 L 08/24/19 19:00 O2 Sat by Pulse Oximetry (%) 96 08/24/19 19:00 HENT: Yes: Atraumatic, Normocephalic Neck: Yes: Supple, Trachea Midline Cardiovascular: Yes: Regular Rate and Rhythm Respiratory: Yes: Diminished Gastrointestinal: Yes: Soft, Distention Breast(s): Yes: WNL Musculoskeletal: Yes: WNL Extremities: Yes: WNL Edema: No Peripheral Pulses WNL: Yes Neurological: Yes: Lethargy, Pre-Existing Deficit Labs: CBC, BMP 08/24/19 19:30 08/24/19 19:30 Problem List - Problems (1) MARCELL (acute kidney injury) Code(s): N17.9 - ACUTE KIDNEY FAILURE, UNSPECIFIED (2) CKD (chronic kidney disease) stage 3, GFR 30-59 ml/min Assessment/Plan: baseline Cr 1.7 (GFR 31) Code(s): N18.3 - CHRONIC KIDNEY DISEASE, STAGE 3 (MODERATE) (3) UTI (urinary tract infection) Code(s): N39.0 - URINARY TRACT INFECTION, SITE NOT SPECIFIED Qualifiers: Urinary tract infection type: acute cystitis Hematuria presence: without hematuria Qualified Code(s): N30.00 - Acute cystitis without hematuria (4) ASHD (arteriosclerotic heart disease) Code(s): I25.10 - ATHSCL HEART DISEASE OF [place] CORONARY ARTERY W/O ANG PCTRS (5) CHF exacerbation Code(s): I50.9 - HEART FAILURE, UNSPECIFIED (6) Hypertension Code(s): I10 - ESSENTIAL (PRIMARY) HYPERTENSION (7) Hyperlipidemia Code(s): E78.5 - HYPERLIPIDEMIA, UNSPECIFIED (8) COPD (chronic obstructive pulmonary disease) Code(s): J44.9 - CHRONIC OBSTRUCTIVE PULMONARY DISEASE, UNSPECIFIED Assessment/Plan a/p: 84 f hx dementia, ckd, cea, diastolic chf, htn, hld, mi s/p remote pci, here with weakness. weakness, uti: -likely infectious cause of weakness. abx chronic diastolic chf: -vol status stable, cont home lasix ckd: -cr near baseline htn: -cont home meds hld: -cont statin cad, s/p mi and remote pci: -no signs acs. trop mildly elevated with flat trend and nl ck, not c/w acs. -cont statin, asa, bb, nitrate
[2019-08-25] MEDS ORDERED: hydrALAZINE HCL 25 MG TABLET (FP) ONE (07:12)
[2019-08-25] MEDS: hydrALAZINE HCL 25 MG TABLET (FP) PO SCH ×2 (07:15→23:17)
[2019-08-25 07:22] LABS: HEMATOCRIT 35.8 % (32.4-45.2); MCHC 33.7 g/dl (32.0-36.0); MEAN CELL VOLUME 92.2 fl (80-96); MEAN PLT VOLUME 11.3 fl (7.5-11.1); PLATELET COUNT 154 K/MM3 (134-434); RBC 3.88 M/mm3 (3.60-5.2); RDW 14.6 % (11.6-15.6); WHITE BLOOD COUNT 9.8 K/mm3 (4.0-10.0)
[2019-08-25 08:00] LABS: ALBUMIN 3.6 g/dl (3.4-5.0); BILIRUBIN,TOTAL 0.4 mg/dL (0.2-1); BLOOD UREA NITROGEN 63.5 mg/dL (7-18); CALCIUM 9.2 mg/dL (8.5-10.1); CREATININE 2.7 mg/dL (0.55-1.3); POTASSIUM 3.2 mmol/L (3.5-5.1); TOT PROT 6.5 g/dl (6.4-8.2)
[2019-08-25] MEDS ORDERED: ALBUTEROL SO4 2.5/IPRATROPIUM 0.5 INH SOL 3 ML VIAL.NEB. NEB ONE ×2 (11:25→16:28)
[2019-08-25] MEDS: ALBUTEROL SO4 2.5/IPRATROPIUM 0.5 INH SOL 3 ML VIAL.NEB. NEB SCH ×4 (11:35→20:22)
[2019-08-25] MEDS: NEBIVOLOL 10 MG TABLET (FP) PO SCH (11:35)
[2019-08-25] MEDS: DOXAZOSIN MESYLATE 2 MG TABLET (FP) PO SCH (11:35)
[2019-08-25] MEDS: POLYETHYLENE GLYCOL 3350 119 GM BTL PO SCH ×2 (11:36→11:37)
[2019-08-25] MEDS: ASPIRIN COATED 81 MG TABLET.EC PO SCH (11:36)
[2019-08-25] MEDS: BUDESONIDE/FORMETEROL FUMARATE 160/4.5 mcg INHALER IH SCH ×2 (11:37→23:14)
[2019-08-25] MEDS: amLODIPine BESYLATE 10 MG TABLET (FP) PO SCH (11:37)
--- NOTE | 2019-08-25 11:53 | EKG ---
Test Reason : Blood Pressure : / mmHG Vent. Rate : 063 BPM Atrial Rate : 063 BPM P-R Int : 160 ms QRS Dur : 092 ms QT Int : 468 ms P-R-T Axes : 071 -63 115 degrees QTc Int : 478 ms SINUS RHYTHM WITH PREMATURE ATRIAL COMPLEXES POSSIBLE LEFT ATRIAL ENLARGEMENT LEFT ANTERIOR FASCICULAR BLOCK T WAVE ABNORMALITY, CONSIDER LATERAL ISCHEMIA PROLONGED QT ABNORMAL ECG WHEN COMPARED WITH ECG OF 29-MAY-2019 03:59, PREMATURE ATRIAL COMPLEXES ARE NOW PRESENT T WAVE INVERSION MORE EVIDENT IN LATERAL LEADS Confirmed by LIAM JACKSON MD ([id number]) on 08/25/2019 11:52:30 AM Referred By: Confirmed By:LIAM JACKSON MD
--- NOTE | 2019-08-25 12:03 | CON.CARD ---
Cardiology Consult (text) - Consultation Consultation Note: cc: generalized weakness hpi: 84 f hx dementia, ckd, cea, diastolic chf, htn, hld, mi s/p remote pci, here with generalized weakness. Pt poor historian 2/2 dementia. Hx from charts , family. Past 1 week she has been less active and tired looking. Pt denies any sxs, confused. Sees dr lima for cardio. pmh: per hpi psh: cea social: no tob fam: non contrib ros: unable to obtain 2/2 dementia meds: Home Medications Medication Instructions Recorded Amlodipine Besylate 10 mg PO DAILY 05/29/19 Aspirin [Ecotrin] 81 mg PO DAILY 05/29/19 Atorvastatin Ca [Lipitor] 40 mg PO HS 05/29/19 Calcium Carb, Citrate/Vit D3 1 tab PO DAILY 05/29/19 [Calcium + D3 ER Tablet] Doxazosin Mesylate 2 mg PO AM 05/29/19 Doxazosin Mesylate 4 mg PO HS 05/29/19 Nebivolol HCl [Bystolic] 10 mg PO DAILY 05/29/19 Budesonide/Formeterol Fumarate 2 puff IH BID inhaler 06/06/19 [SYMBICORT 160/4.5mcg -] Docusate Sodium [Colace -] 200 mg PO HS capsule 06/06/19 Guaifenesin [Robitussin -] 10 ml PO Q8H PRN cup 06/06/19 Melatonin 5 mg PO ONCE PRN tab 06/06/19 Polyethylene Glycol 3350 [Miralax 17 gm PO DAILY bottle 06/06/19 119 gm Btl -] Furosemide [Lasix -] 80 mg PO BID@0600,1400 08/24/19 Potassium Chloride 30 meq PO BID 08/24/19 hydrALAZINE HCL [Apresoline -] 35 mg PO BID@0700,2200 08/24/19 Vital Signs Period Temp Pulse Resp BP Sys/Michelle Pulse Ox Last 24 Hr 97.8 F-98.6 F 60-68 14-18 158-187/45-81 95-97 nad no jvd rrr s1s2 no mrg cta bl nl eff abd nt nd pos bs no jaundice diaphoresis pos dp tp no carotid bruits awake, alert, confused no le e/c/c Laboratory Last Values WBC 9.8 K/mm3 (4.0-10.0) 10/10/19 06:30 RBC 3.88 M/mm3 (3.60-5.2) 08/25/19 06:30 Hgb 12.0 GM/dL (10.7-15.3) 08/25/19 06:30 Hct 35.8 % (32.4-45.2) 08/25/19 06:30 MCV 92.2 fl (80-96) 08/25/19 06:30 MCH 31.0 pg (25.7-33.7) 08/25/19 06:30 MCHC 33.7 g/dl (32.0-36.0) 08/25/19 06:30 RDW 14.6 % (11.6-15.6) 08/25/19 06:30 Plt Count 154 K/MM3 (134-434) 08/25/19 06:30 MPV 11.3 fl (7.5-11.1) H 08/25/19 06:30 Absolute Neuts (auto) 7.8 K/mm3 (1.5-8.0) 08/24/19 19:30 Neutrophils % 84.2 % (42.8-82.8) H 08/24/19 19:30 Lymphocytes % 7.9 % (8-40) L D 08/24/19 19:30 Monocytes % 6.2 % (3.8-10.2) 08/24/19 19:30 Eosinophils % 1.4 % (0-4.5) D 08/24/19 19:30 Basophils % 0.3 % (0-2.0) 08/24/19 19:30 Nucleated RBC % 0 % (0-0) 08/24/19 19:30 Sodium 141 mmol/L (136-145) 08/25/19 06:30 Potassium 3.2 mmol/L (3.5-5.1) L 08/25/19 06:30 Chloride 100 mmol/L (98-107) 08/25/19 06:30 Carbon Dioxide 33 mmol/L (21-32) H 08/25/19 06:30 Anion Gap 8 MMOL/L (8-16) 08/25/19 06:30 BUN 63.5 mg/dL (7-18) H 08/25/19 06:30 Creatinine 2.7 mg/dL (0.55-1.3) H 08/25/19 06:30 Est GFR (CKD-EPI)AfAm 17.78 08/25/19 06:30 Est GFR (CKD-EPI)NonAf 15.34 08/25/19 06:30 Random Glucose 93 mg/dL (74-106) 08/25/19 06:30 Calcium 9.2 mg/dL (8.5-10.1) 08/25/19 06:30 Phosphorus 3.8 mg/dL (2.5-4.9) 08/24/19 19:30 Magnesium 2.5 mg/dL (1.8-2.4) H 08/24/19 19:30 Total Bilirubin 0.4 mg/dL (0.2-1) 08/25/19 06:30 AST 21 U/L (15-37) 08/25/19 06:30 ALT 18 U/L (13-61) 08/25/19 06:30 Alkaline Phosphatase 49 U/L (45-117) 08/25/19 06:30 Creatine Kinase 69 U/L (26-192) 08/25/19 06:30 Troponin I 0.06 ng/ml (0.00-0.05) H 08/25/19 06:30 B-Natriuretic Peptide 6322.8 pg/ml (5-450) H 08/24/19 19:30 Total Protein 6.5 g/dl (6.4-8.2) 08/25/19 06:30 Albumin 3.6 g/dl (3.4-5.0) 08/25/19 06:30 TSH 1.38 uIU/ml (0.358-3.74) 08/25/19 06:30 Urine Color Yellow 08/24/19 21:50 Urine Appearance Cloudy 08/24/19 21:50 Urine pH 6.0 (5.0-8.0) 08/24/19 21:50 Ur Specific [place] 1.013 (1.010-1.035) 08/24/19 21:50 Urine Protein 1+ (NEGATIVE) H 08/24/19 21:50 Urine Glucose (UA) Negative (NEGATIVE) 08/24/19 21:50 Urine Ketones Negative (NEGATIVE) 08/24/19 21:50 Urine Blood Negative (NEGATIVE) 08/24/19 21:50 Urine Nitrite Negative (NEGATIVE) 08/24/19 21:50 Urine Bilirubin Negative (NEGATIVE) 08/24/19 21:50 Urine Urobilinogen 0.2 mg/dL (0.2-1.0) 08/24/19 21:50 Ur Leukocyte Esterase 2+ (NEGATIVE) H 08/24/19 21:50 Urine WBC (Auto) 7 /hpf (0-5) 08/24/19 21:50 Urine RBC (Auto) 2 /hpf (0-4) 08/24/19 21:50 Urine Casts (Auto) 2 /lpf (0-8) 08/24/19 21:50 U Epithel Cells (Auto) 3.2 /HPF (0-5/HPF) 08/24/19 21:50 Urine Crystals (Auto) None seen /hpf 08/24/19 21:50 Urine Bacteria (Auto) 601.8 /hpf (NEGATIVE) 08/24/19 21:50 ecg: sr, nl intervals, no st changes, lat twis, no sig change prior cxr: chf a/p: 84 f hx dementia, ckd, cea, diastolic chf, htn, hld, mi s/p remote pci, here with weakness. weakness, uti: -likely infectious cause of weakness. abx per ID/PMD chronic diastolic chf: -vol status stable, cont home lasix ckd: -cr near baseline htn: -cont home meds hld: -cont statin cad, s/p mi and remote pci: -no signs acs. trop mildly elevated with flat trend and nl ck, not c/w acs. -cont statin, asa, bb, nitrate
--- NOTE | 2019-08-25 13:04 | PN ---
Progress Note (short form) - Note Progress Note: ID consult dictated imp/reccd MARCELL on CKD doubt UTI history of CHF/elevated troponins history of dementia pen allergy- has received cephalosporins in the past no cultures sent UA not impressive would treat her MARCELL she is clinicallly improved no need for further antibiotics at this time Problem List - Problems (1) Acute kidney injury superimposed on CKD Code(s): N17.9 - ACUTE KIDNEY FAILURE, UNSPECIFIED; N18.9 - CHRONIC KIDNEY DISEASE, UNSPECIFIED (2) Dementia Code(s): F03.90 - UNSPECIFIED DEMENTIA WITHOUT BEHAVIORAL DISTURBANCE (3) Penicillin allergy Code(s): Z88.0 - ALLERGY STATUS TO PENICILLIN
--- NOTE | 2019-08-25 13:12 | PN ---
Progress Note (short form) - Note Progress Note: 84 y/o female found lying on stretcher. Son present at bedside. No c/o pain or discomfort. Vital Signs Period Temp Pulse Resp BP Sys/Michelle Pulse Ox Last 24 Hr 97.8 F-98.6 F 60-68 14-18 158-187/45-81 95-97 CBC, BMP 08/25/19 06:30 08/25/19 06:30 HEENT- NL Neck- Trachea midline Lungs- CTAB Heart- S1/S2 Abd- soft, NT Ext- No LE edema Active Medications Acetaminophen (Tylenol -) 650 mg PO Q4H PRN PRN Reason: PAIN LEVEL 1-5 Albuterol/Ipratropium (Duoneb -) 1 amp NEB RQID [facility] Last Admin: 08/25/19 12:18 Dose: Not Given Amlodipine Besylate (Norvasc -) 10 mg PO DAILY [facility] Last Admin: 08/25/19 11:37 Dose: 10 mg Aspirin (Ecotrin -) 81 mg PO DAILY [facility] Last Admin: 08/25/19 11:36 Dose: 81 mg Atorvastatin Calcium (Lipitor -) 40 mg PO HS [facility] Budesonide/Formoterol Fumarate (Symbicort 160/4.5mcg -) 2 puff IH BID [facility] Last Admin: 08/25/19 11:37 Dose: Not Given Docusate Sodium (Colace -) 200 mg PO HS [facility] Doxazosin Mesylate (Cardura -) 2 mg PO AM [facility] Last Admin: 08/25/19 11:35 Dose: 2 mg Doxazosin Mesylate (Cardura -) 4 mg PO HS [facility] Guaifenesin (Robitussin -) 10 ml PO Q8H PRN PRN Reason: COUGH Hydralazine HCl (Apresoline -) 25 mg PO BID@0700,2200 [facility] Last Admin: 08/25/19 07:15 Dose: 25 mg Melatonin (Melatonin) 5 mg PO ONCE PRN PRN Reason: INSOMNIA Nebivolol (Bystolic -) 10 mg PO DAILY [facility] Last Admin: 08/25/19 11:35 Dose: 10 mg Polyethylene Glycol (Miralax (For Daily Use) -) 17 gm PO DAILY [facility] Last Admin: 08/25/19 11:36 Dose: 17 grams Polyethylene Glycol (Miralax (For Daily Use) -) 17 gm PO DAILY [facility] Last Admin: 08/25/19 11:37 Dose: Not Given #UTI UA + Leukocytes C& S pending Appreciate ID consult #Elevated BNP Appreciate Cardio consult #CKD Trend Renal #Dementia At Baseline Problem List - Problems (1) MARCELL (acute kidney injury) Code(s): N17.9 - ACUTE KIDNEY FAILURE, UNSPECIFIED (2) CKD (chronic kidney disease) stage 3, GFR 30-59 ml/min Assessment/Plan: baseline Cr 1.7 (GFR 31) Code(s): N18.3 - CHRONIC KIDNEY DISEASE, STAGE 3 (MODERATE) (3) UTI (urinary tract infection) Code(s): N39.0 - URINARY TRACT INFECTION, SITE NOT SPECIFIED Qualifiers: Urinary tract infection type: acute cystitis Hematuria presence: without hematuria Qualified Code(s): N30.00 - Acute cystitis without hematuria (4) ASHD (arteriosclerotic heart disease) Code(s): I25.10 - ATHSCL HEART DISEASE OF [place] CORONARY ARTERY W/O ANG PCTRS (5) CHF exacerbation Code(s): I50.9 - HEART FAILURE, UNSPECIFIED (6) Hypertension Code(s): I10 - ESSENTIAL (PRIMARY) HYPERTENSION (7) Hyperlipidemia Code(s): E78.5 - HYPERLIPIDEMIA, UNSPECIFIED (8) COPD (chronic obstructive pulmonary disease) Code(s): J44.9 - CHRONIC OBSTRUCTIVE PULMONARY DISEASE, UNSPECIFIED
--- NOTE | 2019-08-25 15:58 | CONSULT ---
Consult Consult Specialty:: Nephrology Reason for Consultation:: CKD - History of Present Illness Chief Complaint: generalized weakness History of Present Illness: Coverage for Dr Diaz Pt is an 84 year old female with pmhx of alzheimerrs, chf, ckd, CAD, and CODP who was sent in for weakness. She was found to have elevated creatinine and I was called to evaluate her. Pt has history of CKD and follows with Dr Diaz. Pt is a poor historian and unable to give much history. She denies shortness of breath. She says that she feels well. her son is at bedside who assisted with history and I also spoke to her daughter on the phone who knows her medical history well. Pts creatinine is higher than baseline. Her diuretics were recently increased. She did get afew doses of metolazone as well. - History Source History Provided By: Family Member, Medical Record - Past Medical History CMS EXPERT: Yes: Alzheimer's (STAGE ONE) Cardio/Vascular: Yes: CAD, CHF, HTN, Hyperlipdemia, MT, Other (STENTS ) Pulmonary: Yes: Bronchitis, COPD Renal/: Yes: Renal Failure, Renal Inusuff - Alcohol/Substance Use Hx Alcohol Use: No - Smoking History Smoking history: Never smoked Have you smoked in the past 12 months: No - Social History ADL: Support Services History of Recent Travel: No Home Medications - Allergies Allergies/Adverse Reactions: Allergies Allergy/AdvReac Type Severity Reaction Status Date / Time erythromycin base Allergy Unknown Verified 05/28/19 20:18 Penicillins Allergy Unknown Verified 05/28/19 20:18 - Home Medications Home Medications: Ambulatory Orders Amlodipine Besylate 10 mg PO DAILY 05/29/19 Aspirin [Ecotrin] 81 mg PO DAILY 05/29/19 Atorvastatin Ca [Lipitor] 40 mg PO HS 05/29/19 Calcium Carb, Citrate/Vit D3 [Calcium + D3 ER Tablet] 1 tab PO DAILY 05/29/19 Doxazosin Mesylate 2 mg PO AM 05/29/19 Doxazosin Mesylate 4 mg PO HS 05/29/19 Nebivolol HCl [Bystolic] 10 mg PO DAILY 05/29/19 Budesonide/Formeterol Fumarate [SYMBICORT 160/4.5mcg -] 2 puff IH BID inhaler 06/06/19 Docusate Sodium [Colace -] 200 mg PO HS capsule 06/06/19 Guaifenesin [Robitussin -] 10 ml PO Q8H PRN cup 06/06/19 Melatonin 5 mg PO ONCE PRN tab 06/06/19 Polyethylene Glycol 3350 [Miralax 119 gm Btl -] 17 gm PO DAILY bottle 06/06/19 Furosemide [Lasix -] 80 mg PO BID@0600,1400 08/24/19 Potassium Chloride 30 meq PO BID 08/24/19 hydrALAZINE HCL [Apresoline -] 35 mg PO BID@0700,2200 08/24/19 Family Medical History Family History: Denies Review of Systems Unable to obtain ROS, reason: poor historian - Review of Systems Constitutional: reports: No Symptoms Eyes: reports: No Symptoms HENT: reports: No Symptoms Neck: reports: No Symptoms Cardiovascular: reports: No Symptoms Respiratory: reports: No Symptoms Gastrointestinal: reports: No Symptoms Genitourinary: reports: No Symptoms Musculoskeletal: reports: No Symptoms Integumentary: reports: No Symptoms Neurological: reports: No Symptoms Endocrine: reports: No Symptoms Hematology/Lymphatic: reports: No Symptoms Physical Exam Vital Signs: Vital Signs Temperature 98.5 F 08/25/19 14:00 Pulse Rate 72 08/25/19 14:00 Respiratory Rate 20 08/25/19 14:00 Blood Pressure 142/60 08/25/19 14:00 O2 Sat by Pulse Oximetry (%) 96 08/25/19 14:00 Constitutional: Yes: Calm Eyes: Yes: Conjunctiva Clear HENT: Yes: Atraumatic Neck: Yes: Supple Cardiovascular: Yes: S1, S2 Respiratory: Yes: CTA Bilaterally Gastrointestinal: Yes: Normal Bowel Sounds, Soft Renal/: Yes: WNL Musculoskeletal: Yes: WNL Edema: No Neurological: Yes: Confusion Labs: CBC, BMP 08/25/19 06:30 08/25/19 06:30 Laboratory Tests 06/04/19 06/06/19 08/24/19 07:40 06:30 19:30 Hgb Sodium Potassium 3.8 Creatinine 1.5 H 1.7 H 3.2 H B-Natriuretic Peptide Urine Protein Urine Blood 08/24/19 08/24/19 08/25/19 19:30 21:50 06:30 Hgb 12.0 Sodium Potassium Creatinine B-Natriuretic Peptide 6322.8 H Urine Protein 1+ H Urine Blood Negative 08/25/19 06:30 Hgb Sodium 141 Potassium 3.2 L Creatinine 2.7 H B-Natriuretic Peptide Urine Protein Urine Blood Imaging - Results Chest X-ray: Report Reviewed Problem List - Problems (1) MARCELL (acute kidney injury) Code(s): N17.9 - ACUTE KIDNEY FAILURE, UNSPECIFIED (2) CKD (chronic kidney disease) stage 3, GFR 30-59 ml/min Code(s): N18.3 - CHRONIC KIDNEY DISEASE, STAGE 3 (MODERATE) (3) COPD (chronic obstructive pulmonary disease) Code(s): J44.9 - CHRONIC OBSTRUCTIVE PULMONARY DISEASE, UNSPECIFIED Assessment/Plan Current Medications Generic Name Dose Route Start Last Admin Trade Name Freq PRN Reason Stop Dose Admin Acetaminophen 650 mg 08/24/19 23:31 Tylenol - PO Q4H PRN PAIN LEVEL 1-5 Albuterol/Ipratropium 1 amp 08/25/19 08:00 08/25/19 12:18 Duoneb - NEB Not Given RQID [facility] Amlodipine Besylate 10 mg 08/25/19 10:00 08/25/19 11:37 Norvasc - PO 10 mg DAILY [facility] Administration Aspirin 81 mg 08/25/19 10:00 08/25/19 11:36 Ecotrin - PO 81 mg DAILY [facility] Administration Atorvastatin Calcium 40 mg 08/25/19 22:00 Lipitor - PO HS [facility] Budesonide/Formoterol Fumarate 2 puff 08/25/19 10:00 08/25/19 11:37 Symbicort 160/4.5mcg - IH Not Given BID [facility] Docusate Sodium 200 mg 08/25/19 22:00 Colace - PO HS [facility] Doxazosin Mesylate 2 mg 08/25/19 07:00 08/25/19 11:35 Cardura - PO 2 mg AM [facility] Administration Doxazosin Mesylate 4 mg 08/25/19 22:00 Cardura - PO HS [facility] Guaifenesin 10 ml 08/24/19 23:35 Robitussin - PO Q8H PRN COUGH Hydralazine HCl 25 mg 08/25/19 07:00 08/25/19 07:15 Apresoline - PO 25 mg BID@0700,2200 [facility] Administration Melatonin 5 mg 08/24/19 23:35 Melatonin PO ONCE PRN INSOMNIA Nebivolol 10 mg 08/25/19 10:00 08/25/19 11:35 Bystolic - PO 10 mg DAILY [facility] Administration Polyethylene Glycol 17 gm 08/25/19 10:00 08/25/19 11:36 Miralax (For Daily Use) - PO 17 grams DAILY [facility] Administration Polyethylene Glycol 17 gm 08/25/19 10:00 08/25/19 11:37 Miralax (For Daily Use) - PO Not Given DAILY [facility] Impression 1. MARCELL 2. CKD 3. CHF 4. dementia 5. CAD 6. htn 7. hypokalemia Plan - cxr clear - replace potassium - resume po lasix tomorrow - repeat labs in am - check renal ultrasound - will call and discuss with Dr Diaz - discussed with family at length
[2019-08-25] MEDS ORDERED: POTASSIUM CHLORIDE TABS 20 MEQ TABLET.ER (FP) PO ONE ×2 (16:00→16:28)
[2019-08-25] MEDS ORDERED: ATORVASTATIN CA 40 MG TABLET (FP) PO SCH (22:00)
[2019-08-25] MEDS ORDERED: DOCUSATE SODIUM 100 MG CAPSULE (FP) PO SCH (22:00)
[2019-08-25] MEDS ORDERED: DOXAZOSIN MESYLATE 4 MG TABLET PO SCH (22:00)
--- NOTE | 2019-08-25 22:55 | CONS ---
DATE OF CONSULTATION: DATE OF DICTATION: 08/25/2019 INFECTIOUS DISEASE CONSULTATION History was obtained from the patient's son who is at the bedside, and the patient's daughter via phone. Patient was seen in the emergency room. This is an 84-year-old woman who resides at the [facility]. She was sent to the emergency room for weakness over the last 10 days. Patient is a very poor historian due to dementia. She has no fevers or chills. She has no dysuria, diarrhea, nausea, or vomiting. Presents, she is currently eating lunch and says she is doing much better. Her medications include amlodipine, aspirin, atorvastatin, calcium, doxazosin, Bystolic, Symbicort, Colace, Robitussin, and melatonin as well as furosemide, potassium and hydralazine. PAST MEDICAL HISTORY: Notable for history of dementia, she has the history of congestive heart failure, CKD. She is allergic to PENICILLIN, taking cephalosporin in the past. She has a past medical history of Alzheimer disease, coronary artery disease, CHF, hypertension, hyperlipidemia, she is status post stent, she has a history of COPD and bronchitis, CKD, and anemia. No history of any cigarette or substance use. SOCIAL HISTORY: She resides at the assisted living facility. She has 3 children, 2 sons and a daughter who are all actively involved in her healthcare. REVIEW OF SYSTEMS: She denies headache, she denies fevers, chills, nausea, vomiting, diarrhea, or dysuria. HOSPITAL COURSE: In the ER she was noted to have a creatinine on admission of 3.2, her baseline is 1.7. She had a normal white count. PHYSICAL EXAMINATION: Vital Signs: Temperature 98.5, pulse 72, blood pressure 142/60, respiratory rate 20, she is saturating 96% on room air. HEENT: Normocephalic. Eyes are anicteric. Neck: Supple. Lungs: Clear to auscultation. Heart: Regular rate and rhythm. Abdomen: Soft, nontender. She has no suprapubic or CVA tenderness. Extremities: Without edema. LABORATORY: Notable for white count of 9.3 and hemoglobin 11.8, platelets 158, BUN and creatinine are 73.2 with creatinine of 3.2 and urinalysis 7 white cells. Chest x-ray is clear. IMPRESSION: In summary, this is an elderly woman with acute kidney injury on chronic kidney disease. I doubt she has urinary tract infection. History of heart failure that appears compensated. History of dementia that appears mild. She has a PENICILLIN allergy but she has taken cephalosporins in the past. No cultures have been sent, and the urinalysis is not impressive. I would suspect this is asymptomatic bacteruria. I think if urine culture had been sent, would treat her for acute kidney injury. Clinically she has improved, and would not treat her with antibiotics at this time. Discussed at length with both Dr. Walker as well as both her son and daughter. Please call back if needed. GARO ACEVEDO M.D. SAYRA/[id number]
[2019-08-25] MEDS: ACETAMINOPHEN 325 MG TABLET (FP) PO PRN (23:15)
[2019-08-26 04:29] LABS: N-TERMINAL BNP 5431.2 pg/ml (5-450)
[2019-08-26] MEDS: DOXAZOSIN MESYLATE 2 MG TABLET (FP) PO SCH (06:01)
[2019-08-26] MEDS: hydrALAZINE HCL 25 MG TABLET (FP) PO SCH (06:03)
--- NOTE | 2019-08-26 07:08 | PN ---
Progress Note, Physician Chief Complaint: UTI, weakness History of Present Illness: BP slightly elevated Denies CP or SOB - Current Medication List Current Medications: Active Medications Acetaminophen (Tylenol -) 650 mg PO Q4H PRN PRN Reason: PAIN LEVEL 1-5 Last Admin: 08/25/19 23:15 Dose: 650 mg Albuterol/Ipratropium (Duoneb -) 1 amp NEB RQID [facility] Last Admin: 08/25/19 20:22 Dose: Not Given Amlodipine Besylate (Norvasc -) 10 mg PO DAILY [facility] Last Admin: 08/25/19 11:37 Dose: 10 mg Aspirin (Ecotrin -) 81 mg PO DAILY [facility] Last Admin: 08/25/19 11:36 Dose: 81 mg Atorvastatin Calcium (Lipitor -) 40 mg PO HS [facility] Last Admin: 08/25/19 23:14 Dose: 40 mg Budesonide/Formoterol Fumarate (Symbicort 160/4.5mcg -) 2 puff IH BID [facility] Last Admin: 08/25/19 23:14 Dose: 2 puff Docusate Sodium (Colace -) 200 mg PO HS [facility] Last Admin: 08/25/19 23:13 Dose: 200 mg Doxazosin Mesylate (Cardura -) 2 mg PO AM [facility] Last Admin: 08/26/19 06:01 Dose: 2 mg Doxazosin Mesylate (Cardura -) 4 mg PO HS [facility] Last Admin: 08/25/19 23:13 Dose: 4 mg Guaifenesin (Robitussin -) 10 ml PO Q8H PRN PRN Reason: COUGH Hydralazine HCl (Apresoline -) 25 mg PO BID@0700,2200 [facility] Last Admin: 08/26/19 06:03 Dose: 25 mg Melatonin (Melatonin) 5 mg PO ONCE PRN PRN Reason: INSOMNIA Last Admin: 08/25/19 23:14 Dose: 5 mg Nebivolol (Bystolic -) 10 mg PO DAILY [facility] Last Admin: 08/25/19 11:35 Dose: 10 mg Polyethylene Glycol (Miralax (For Daily Use) -) 17 gm PO DAILY [facility] Last Admin: 08/25/19 11:36 Dose: 17 grams Polyethylene Glycol (Miralax (For Daily Use) -) 17 gm PO DAILY [facility] Last Admin: 08/25/19 11:37 Dose: Not Given - Objective Vital Signs: Vital Signs Temperature 97.2 F L 08/26/19 06:00 Pulse Rate 61 08/26/19 06:00 Respiratory Rate 17 08/26/19 06:00 Blood Pressure 173/47 H 08/26/19 06:00 O2 Sat by Pulse Oximetry (%) 95 08/25/19 21:30 Constitutional: Yes: No Distress Cardiovascular: Yes: Regular Rate and Rhythm Respiratory: Yes: CTA Bilaterally Gastrointestinal: Yes: Soft Edema: No Neurological: Yes: Alert Labs: Laboratory Tests 08/25/19 08/26/19 08/26/19 06:30 05:37 05:37 WBC 9.5 Hgb 11.0 Plt Count 152 Sodium 142 Potassium 4.0 BUN 64.3 H Creatinine 2.9 H Creatine Kinase 69 109 Troponin I 0.06 H 0.08 H B-Natriuretic Peptide 5431.2 H - ....Imaging EKG: Image Reviewed Assessment/Plan a/p: 84 f hx dementia, ckd, cea, diastolic chf, htn, hld, mi s/p remote pci, here with weakness. weakness, uti: -likely infectious cause of weakness. abx per ID/PMD chronic diastolic chf: -vol status stable, to resume home Lasix today as per renal. ckd: -cr near baseline htn: mildly elevated this AM prior to meds, resuming Lasix - home list 80mg BID -cont home meds hld: -cont statin cad, s/p mi and remote pci: -no signs acs. trop mildly elevated with flat trend and nl ck, not c/w acs. -cont statin, asa, bb, nitrate
[2019-08-26 07:09] LABS: BASO % 0.3 % (0-2.0); EOS % 1.6 % (0-4.5); HEMATOCRIT 32.9 % (32.4-45.2); LYMPH % 10.5 % (8-40); MCH 30.6 pg (25.7-33.7); MCHC 33.4 g/dl (32.0-36.0); MEAN CELL VOLUME 91.6 fl (80-96); MEAN PLT VOLUME 11.1 fl (7.5-11.1); MONO % 8.8 % (3.8-10.2); NEUT % 78.8 % (42.8-82.8); PLATELET COUNT 152 K/MM3 (134-434); RBC 3.59 M/mm3 (3.60-5.2); RDW 14.6 % (11.6-15.6); WHITE BLOOD COUNT 9.5 K/mm3 (4.0-10.0)
[2019-08-26 07:33] LABS: ALBUMIN 3.5 g/dl (3.4-5.0); BILIRUBIN,TOTAL 0.4 mg/dL (0.2-1); BLOOD UREA NITROGEN 64.3 mg/dL (7-18); CALCIUM 9.2 mg/dL (8.5-10.1); CREATININE 2.9 mg/dL (0.55-1.3); TOT PROT 6.3 g/dl (6.4-8.2)
[2019-08-26] MEDS: ALBUTEROL SO4 2.5/IPRATROPIUM 0.5 INH SOL 3 ML VIAL.NEB. NEB SCH ×2 (08:39→11:45)
[2019-08-26] MEDS: ASPIRIN COATED 81 MG TABLET.EC PO SCH (09:58)
[2019-08-26] MEDS: amLODIPine BESYLATE 10 MG TABLET (FP) PO SCH (09:58)
[2019-08-26] MEDS: NEBIVOLOL 10 MG TABLET (FP) PO SCH (10:01)
[2019-08-26] MEDS: POLYETHYLENE GLYCOL 3350 119 GM BTL PO SCH ×2 (10:01→10:02)
[2019-08-26] MEDS ORDERED: PT OWN MED DRAWER 7, Y5N ONE (10:01)
[2019-08-26] MEDS: BUDESONIDE/FORMETEROL FUMARATE 160/4.5 mcg INHALER IH SCH (10:02)
--- NOTE | 2019-08-26 10:41 | DS ---
Physical Examination Vital Signs: Vital Signs Temperature 97.2 F L 08/26/19 06:00 Pulse Rate 60 08/26/19 10:15 Respiratory Rate 18 08/26/19 10:15 Blood Pressure 155/51 L 08/26/19 10:15 O2 Sat by Pulse Oximetry (%) 95 08/25/19 21:30 Constitutional: Yes: Well Nourished, No Distress, Calm Eyes: Yes: Conjunctiva Clear, EOM Intact HENT: Yes: Atraumatic, Normocephalic Neck: Yes: Supple, Trachea Midline Cardiovascular: Yes: Regular Rate and Rhythm Respiratory: Yes: Regular, CTA Bilaterally Gastrointestinal: Yes: Normal Bowel Sounds, Soft ...Rectal Exam: Yes: Deferred Renal/: Yes: WNL Breast(s): Yes: WNL Extremities: Yes: WNL Edema: No Peripheral Pulses WNL: Yes Integumentary: Yes: WNL Neurological: Yes: Alert ...Motor Strength: WNL Psychiatric: Yes: Alert Labs: CBC, BMP 08/26/19 05:37 08/26/19 05:37 Discharge Summary Problems reviewed: Yes Reason For Visit: URINARY TRACT INFECTION, CONGESTIVE HEART FAILURE, Current Active Problems MARCELL (acute kidney injury) (Acute) Acute kidney injury superimposed on CKD (Acute) CHF exacerbation (Acute) CKD (chronic kidney disease) stage 3, GFR 30-59 ml/min (Acute) COPD (chronic obstructive pulmonary disease) (Acute) Dementia (Acute) Elevated troponin (Acute) Hyperlipidemia (Acute) Hypertension (Acute) Penicillin allergy (Acute) UTI (urinary tract infection) (Acute) Hospital Course: 84 y/o female with PMH Alzheimers dementia, diastolic HF, TAVR, COPD (50 year smoker, not on home O2), Stage III renal failure, CAD s/p stent presenting with one week of weakness prob due to MARCELL. Lasix held. Potssium replaced. Seen by ID , noted to have asymptomatic bacteriuria. Bladder and renal scans performed. Renal cysts noted (not new per dtr). F/u with renal and Cardio as outpt. Case discussed with dtr. Condition: Good - Instructions Referrals: Lynda Thurman [Primary Care Provider] - Disposition: HOME - Home Medications Comprehensive Discharge Medication List: Ambulatory Orders Amlodipine Besylate 10 mg PO DAILY 05/29/19 Aspirin [Ecotrin] 81 mg PO DAILY 05/29/19 Atorvastatin Ca [Lipitor] 40 mg PO HS 05/29/19 Calcium Carb, Citrate/Vit D3 [Calcium + D3 ER Tablet] 1 tab PO DAILY 05/29/19 Doxazosin Mesylate 2 mg PO AM 05/29/19 Doxazosin Mesylate 4 mg PO HS 05/29/19 Nebivolol HCl [Bystolic] 10 mg PO DAILY 05/29/19 Budesonide/Formeterol Fumarate [SYMBICORT 160/4.5mcg -] 2 puff IH BID inhaler 06/06/19 Docusate Sodium [Colace -] 200 mg PO HS capsule 06/06/19 Guaifenesin [Robitussin -] 10 ml PO Q8H PRN cup 06/06/19 Melatonin 5 mg PO ONCE PRN tab 06/06/19 Polyethylene Glycol 3350 [Miralax 119 gm Btl -] 17 gm PO DAILY bottle 06/06/19 Furosemide [Lasix -] 80 mg PO BID@0600,1400 08/24/19 Potassium Chloride 30 meq PO BID 08/24/19 hydrALAZINE HCL [Apresoline -] 35 mg PO BID@0700,2200 08/24/19 Prescription Drug Monitoring Program (I-STOP) results: I-STOP not reviewed (Not taking narcotics)
[2019-08-26] MEDS: ACETAMINOPHEN 325 MG TABLET (FP) PO PRN (12:10)
[2019-08-26 12:23] VITALS: BMI 15.9
[2019-08-26 12:41] VITALS: BP 157/42; PULSE 63
[2019-08-26] MEDS ORDERED: FUROSEMIDE 40 MG TABLET (FP) PO SCH (14:00)
--- NOTE | 2019-08-26 14:23 | PN ---
Progress Note, Physician History of Present Illness: Pt seen and examined at bedside. She is awake but confused. She denies shortness of breath. - Current Medication List Current Medications: Active Medications Acetaminophen (Tylenol -) 650 mg PO Q4H PRN PRN Reason: PAIN LEVEL 1-5 Last Admin: 08/26/19 12:10 Dose: 650 mg Albuterol/Ipratropium (Duoneb -) 1 amp NEB RQID [facility] Last Admin: 08/26/19 11:45 Dose: Not Given Amlodipine Besylate (Norvasc -) 10 mg PO DAILY [facility] Last Admin: 08/26/19 09:58 Dose: 10 mg Aspirin (Ecotrin -) 81 mg PO DAILY [facility] Last Admin: 08/26/19 09:58 Dose: 81 mg Atorvastatin Calcium (Lipitor -) 40 mg PO HS [facility] Last Admin: 08/25/19 23:14 Dose: 40 mg Budesonide/Formoterol Fumarate (Symbicort 160/4.5mcg -) 2 puff IH BID [facility] Last Admin: 08/26/19 10:02 Dose: Not Given Docusate Sodium (Colace -) 200 mg PO HS [facility] Last Admin: 08/25/19 23:13 Dose: 200 mg Doxazosin Mesylate (Cardura -) 2 mg PO AM [facility] Last Admin: 08/26/19 06:01 Dose: 2 mg Doxazosin Mesylate (Cardura -) 4 mg PO HS [facility] Last Admin: 08/25/19 23:13 Dose: 4 mg Furosemide (Lasix -) 80 mg PO BID@0600,1400 [facility] Guaifenesin (Robitussin -) 10 ml PO Q8H PRN PRN Reason: COUGH Hydralazine HCl (Apresoline -) 25 mg PO BID@0700,2200 [facility] Last Admin: 08/26/19 06:03 Dose: 25 mg Melatonin (Melatonin) 5 mg PO ONCE PRN PRN Reason: INSOMNIA Last Admin: 08/25/19 23:14 Dose: 5 mg Nebivolol (Bystolic -) 10 mg PO DAILY [facility] Last Admin: 08/26/19 10:01 Dose: 10 mg Polyethylene Glycol (Miralax (For Daily Use) -) 17 gm PO DAILY [facility] Last Admin: 08/26/19 10:01 Dose: 17 grams Polyethylene Glycol (Miralax (For Daily Use) -) 17 gm PO DAILY [facility] Last Admin: 08/26/19 10:02 Dose: Not Given Potassium Chloride (K-Dur -) 40 meq PO DAILY [facility] - Objective Vital Signs: Vital Signs Temperature 97.2 F L 08/26/19 06:00 Pulse Rate 63 08/26/19 12:00 Respiratory Rate 18 08/26/19 12:00 Blood Pressure 157/42 L 08/26/19 12:00 O2 Sat by Pulse Oximetry (%) 95 08/26/19 09:00 Constitutional: Yes: Calm Eyes: Yes: Conjunctiva Clear Cardiovascular: Yes: S1, S2 Respiratory: Yes: CTA Bilaterally Gastrointestinal: Yes: Soft Genitourinary: Yes: WNL Musculoskeletal: Yes: WNL Edema: No Integumentary: Yes: WNL Neurological: Yes: Confusion Labs: CBC, BMP 08/26/19 05:37 08/26/19 05:37 Problem List - Problems (1) MARCELL (acute kidney injury) Code(s): N17.9 - ACUTE KIDNEY FAILURE, UNSPECIFIED (2) CKD (chronic kidney disease) stage 3, GFR 30-59 ml/min Code(s): N18.3 - CHRONIC KIDNEY DISEASE, STAGE 3 (MODERATE) (3) COPD (chronic obstructive pulmonary disease) Code(s): J44.9 - CHRONIC OBSTRUCTIVE PULMONARY DISEASE, UNSPECIFIED Assessment/Plan Current Medications Generic Name Dose Route Start Last Admin Trade Name Freq PRN Reason Stop Dose Admin Acetaminophen 650 mg 08/24/19 23:31 08/26/19 12:10 Tylenol - PO 650 mg Q4H PRN Administration PAIN LEVEL 1-5 Albuterol/Ipratropium 1 amp 08/25/19 08:00 08/26/19 11:45 Duoneb - NEB Not Given RQID [facility] Amlodipine Besylate 10 mg 08/25/19 10:00 08/26/19 09:58 Norvasc - PO 10 mg DAILY [facility] Administration Aspirin 81 mg 08/25/19 10:00 08/26/19 09:58 Ecotrin - PO 81 mg DAILY [facility] Administration Atorvastatin Calcium 40 mg 08/25/19 22:00 08/25/19 23:14 Lipitor - PO 40 mg HS [facility] Administration Budesonide/Formoterol Fumarate 2 puff 08/25/19 10:00 08/26/19 10:02 Symbicort 160/4.5mcg - IH Not Given BID [facility] Docusate Sodium 200 mg 08/25/19 22:00 08/25/19 23:13 Colace - PO 200 mg HS [facility] Administration Doxazosin Mesylate 2 mg 08/25/19 07:00 08/26/19 06:01 Cardura - PO 2 mg AM [facility] Administration Doxazosin Mesylate 4 mg 08/25/19 22:00 08/25/19 23:13 Cardura - PO 4 mg HS [facility] Administration Furosemide 80 mg 08/26/19 14:00 Lasix - PO BID@0600,1400 [facility] Guaifenesin 10 ml 08/24/19 23:35 Robitussin - PO Q8H PRN COUGH Hydralazine HCl 25 mg 08/25/19 07:00 08/26/19 06:03 Apresoline - PO 25 mg BID@0700,2200 [facility] Administration Melatonin 5 mg 08/24/19 23:35 08/25/19 23:14 Melatonin PO 5 mg ONCE PRN Administration INSOMNIA Nebivolol 10 mg 08/25/19 10:00 08/26/19 10:01 Bystolic - PO 10 mg DAILY [facility] Administration Polyethylene Glycol 17 gm 08/25/19 10:00 08/26/19 10:01 Miralax (For Daily Use) - PO 17 grams DAILY [facility] Administration Polyethylene Glycol 17 gm 08/25/19 10:00 08/26/19 10:02 Miralax (For Daily Use) - PO Not Given DAILY [facility] Potassium Chloride 40 meq 08/27/19 10:00 K-Dur - PO DAILY [facility] Impression 1. MARCELL 2. CKD 3. CHF 4. dementia 5. CAD 6. htn 7. hypokalemia Plan - resume home lasix dose - potassium is improved - will need to follow with Dr Diaz in office - discussed with medical team - discussed with daughter at length - renal ultrasound reviewed, she has a urology follow up as outpt
[2019-08-26 15:30] VITALS: TEMP 98.3
[2019-08-27] MEDS ORDERED: POTASSIUM CHLORIDE TABS 20 MEQ TABLET.ER (FP) PO SCH (10:00)
== END 2019-08-26 15:45 | disposition home or self-care (01) | DRG 683 ==
LOC: JER 16:41 → JERBED 22:35 → J2W 08-25 21:13
PROVIDERS: ADMIT Family Medicine; ATTEND Family Medicine
DX: N17.9 Acute kidney failure, unspecified (principal); I13.0 Hypertensive heart and chronic kidney disease with heart failure and stage 1 through stage 4 chronic kidney disease, or unspecified chronic kidney disease; I50.32 Chronic diastolic (congestive) heart failure; N39.0 Urinary tract infection, site not specified; J44.9 Chronic obstructive pulmonary disease, unspecified; I25.2 Old myocardial infarction; N18.3 Chronic kidney disease, stage 3 (moderate); G30.9 Alzheimer's disease, unspecified; F02.80 Dementia in other diseases classified elsewhere, unspecified severity, without behavioral disturbance, psychotic disturbance, mood disturbance, and anxiety; Z88.0 Allergy status to penicillin; I25.10 Atherosclerotic heart disease of native coronary artery without angina pectoris; Z95.2 Presence of prosthetic heart valve; E78.5 Hyperlipidemia, unspecified; E87.6 Hypokalemia
CPT/HCPCS: 36415; 70450-TC; 71045-TC-FY; 76775-TC; 76856-TC; 80048; 80053; 81003; 82550; 83735; 83880; 84100; 84443; 84484; 85025; 85027; 93005; 93010; 99285-25